=== PATIENT | male | born 1945 | race Caucasian/White ===

== ENCOUNTER 2019-04-03 19:54 | Inpatient (IN) | payer MEDICARE ==
[2019-04-03] MEDS ORDERED: methylPREDNISolone Sod Succ/PF 125 MG/2 ML VIAL ONE (20:21)
[2019-04-03 20:53] LABS: ALT (SGPT) 8 U/L (8-55); AST (SGOT) 19 U/L (5-34); Albumin 3.1 g/dL (3.4-4.8); Alkaline Phosphatase 105 U/L (40-110); Anion Gap 11 mmol/L (10-20); BUN (Urea Nitrogen) 12 mg/dL (8.4-25.7); Bilirubin, Total 0.8 mg/dL (0.2-1.2); Calc. Creatinine Clearance 0 mL/min (70-130); Calcium 8.3 mg/dL (7.8-10.44); Carbon Dioxide 23 mmol/L (23-31); Chloride 91 mmol/L (98-107); Estimated GFR-MDRD Greater than 90; Globulin 4.4 g/dL (2.4-3.5); Glucose 152 mg/dL (83-110); Potassium 4.1 mmol/L (3.5-5.1); Protein, Total 7.5 g/dL (5.8-8.1); Sodium 121 mmol/L (136-145)
[2019-04-03 21:02] LABS: Actual Bicarbonate (HCO3a) 21.1 mEq/L (22-28); Analyzer IN Cardio ER; Base Excess (BEa) -4.2 mEq/L (-2.0 to +3.0); CO2 Tension 39.6 mmHg (35.0-45.0); Calcium, Ionized 1.12 mmol/L (1.12-1.30); Carboxyhemoglobin (COHb) 0.7 gm% (0.0-3.0); Hemoglobin (Hb) 11.4 g/dL (14.0-18.0); O2 Tension (PaO2) 84.6 mmHg (> 70.0); Potassium - ABG Lab 3.88 mmol/L (3.70-5.30); pH, Arterial 7.35 (7.35-7.45)
--- NOTE | 2019-04-03 21:02 | PDOC.FPRHP ---
- History of Present Illness History of Present Illness: Mr. Morris is a 73yoM who does not regularly see a physician. He was found down in his home today, he had been immobile for an unknown amount of time, last seen 2-3 days ago. During his intake he was on BiPap and weak. He was able to speak in short sentences. He is alert and oriented to person, not place or time. He states he has been feeling bad for "a while". His history is significant for several basal cell carcinoma removals. 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 He has a 50 pack year smoking history. - Allergies/Adverse Reactions Allergies Allergy/AdvReac Type Severity Reaction Status Date / Time No Known Allergies Allergy Verified 05/26/14 18:19 - Home Medications Medication Instructions Recorded Confirmed Type Albuterol Sulfate [Albuterol 2 puff IH Q6HR PRN #0 inhaler 05/28/14 04/04/19 Rx Sulfate HFA] Amlodipine [Norvasc] 10 mg PO DAILY #0 tab 05/28/14 04/04/19 Rx Aspirin [Ecotrin Regular Strength] 81 mg PO DAILY #0 tab 05/28/14 04/04/19 Rx Atorvastatin Calcium [Lipitor] 10 mg PO HS #0 tab 05/28/14 04/04/19 Rx Budesonide-Formoterol [Symbicort 2 puff INH BID-RT #0 aer 05/28/14 04/04/19 Rx 160-4.5] Clopidogrel Bisulfate [Plavix] 75 mg PO QAM #0 tab 05/28/14 04/04/19 Rx Tiotropium [Spiriva Handihaler] 18 mcg INH DAILY-RT #0 box 05/28/14 04/04/19 Rx predniSONE 40 mg PO QAM-WM 20 Days tab 06/01/14 04/04/19 Rx - History PMHx: BCC, resected COPD PSHx: BCC removals Appendectomy Tonsillectomy FHx: Non-contributory Social: 50 pack year smoking history, - Review of Systems ROS unobtainable: due to mental status - Vital signs BP: 115/64, MAP: 81, Pulse: 76, Resp: 16, Pain: UTR, O2 sat: 93 on (Ventilator) , End-Tidal CO2: 26, Time: 04/03/2019 23:00 TMAX 102.9F - Physical Exam -Constitutional: Awake and alert, not oriented to time or place. Weak. Cachectic HEENT: normocephalic and atraumatic, PERRLA, EOMI, conjunctiva clear, grossly normal vision, grossly normal hearing -HEENT: Dry mucus membranes. Several areas of skin breakdown on face and forehead Neck: supple, trachea midline Heart: RRR, normal S1/S2, no murmurs/rubs/gallops -Lungs: On BiPap, poor air movement Abdomen: soft, non-tender Musculoskeletal: normal structure, normal tone -Musculoskeletal: Clubbing -Neurological: Left sided weakness Skin: good turgor, capillary refill <2 seconds Heme/Lymphatic: no unusual bruising or bleeding, no purpura, no petechia FMR H&P: Results - Labs Result Diagrams: 04/04/19 03:49 04/04/19 03:49 Lab results: Sodium 121 mmol/L (136-145) L 04/03/19 20:25 Potassium 4.1 mmol/L (3.5-5.1) 04/03/19 20:25 Chloride 91 mmol/L (98-107) L 04/03/19 20:25 Carbon Dioxide 23 mmol/L (23-31) 04/03/19 20:25 BUN 12 mg/dL (8.4-25.7) 04/03/19 20:25 Creatinine 0.70 mg/dL (0.7-1.3) 04/03/19 20:25 Glucose 152 mg/dL (83-110) H 04/03/19 20:25 Calcium 8.3 mg/dL (7.8-10.44) 04/03/19 20:25 Total Bilirubin 0.8 mg/dL (0.2-1.2) 04/03/19 20:25 AST 19 U/L (5-34) 04/03/19 20:25 ALT 8 U/L (8-55) 04/03/19 20:25 Alkaline Phosphatase 105 U/L (40-110) 04/03/19 20:25 Serum Total Protein 7.5 g/dL (5.8-8.1) 04/03/19 20:25 Albumin 3.1 g/dL (3.4-4.8) L 04/03/19 20:25 - Radiology Interpretation Chest x-ray Status: report reviewed by me (Focal infiltrate or mass density in the medial right upper lung. Interstitial and hazy infiltrates in both lung bases.) FMR H&P: A/P - Plan Respiratory distress likely 2/2 COPD exacerbation vs Community Acquired PNA, possibly bilateral - CXR shows RUL pneumonia and bilateral infiltrates in the bases. - Patient was becoming tired on the BiPap. We discussed code status and he requested all resuscitative measures. The decision was made to intubate him while in the ER in anticipation of respiratory decline. - Blood cx done in outside ER. Started on Vanc and Zosyn. Will transition to Cefepime and Levaquin as this is community acquired pneumonia. - Will start steroids and magnesium for COPD exacerbation Hyponatremia, likely chronic - NA 121. Will monitor. H/o BCC - appears to have more BCC on face and forehead, will need derm follow up H/o CVA - persistent left sided deficits Disposition/LOS: Dispo: guarded. on ventilator, will likely be difficult to wean. Inpatient, LOS > 48 hours Code: Full, will attempt to contact next of kin or MPOA tomorrow for further guidance. FMR H&P: Upper Level - Plan Date/Time: 04/03/192101 PCP: None- CC HPI: This is a 73 yo M who was found down in bed when neighbors were bringing him Thanksgiving dinner, they had not seen him for 2-3 days. On exam in the ED was AxOx2, he knew he was at a hospital and his name. He could only speak in short phrases on the bipap. He denied pain. He stated he had been feeling sick for about a month. He was taking to [facility] and found to have a Tmax of 102.9 and sent to [facility]. He was last admitted in 2015 for a R CVA, he has persistent L sided deficit. At that time he had vocal cord paralysis noted incidentally on a CT scan and it is not clear if he ever followed up with ENT, he also had carotid artery stenosis and was supposed to f/u with Dr. Maciel, unclear if this occurred.. Per record review he has smoked 1 ppd for at least 50 years. REVIEW OF SYSTEMS: unable to complete 2/2 resp distress and AMS PHYSICAL EXAMINATION: General: alert and oriented x2 HEENT: PERRLA, EOMI, normal sclera Neck: Supple. Full ROM. Heart/Cardiovascular System: RRR, Cap refill < 3 seconds, no rub, no murmur Lungs/Respiratory System: chest splinting on bipap, poor air movement, minimal wheezing-thinking this because of poor air movt-not good, speaking in short phrases Abdomen/Gastro-Intestinal System: no abdominal tenderness, normal bowel sounds Extremities: Warm extremities. Clubbing Neuro: . Unable fully extend L arm or leg Psychiatry: Awake, Alert and cooperative with exam Skin: like BCC on forehead A/P: # COPD exacerbation, Community Acquired PNA, possibly bilateral - CXR shows RUL pneumonia, hazy infiltrate at bases bilaterally - Initial VBG pH 7.4, ABG shows pH 7.35-> 7.32 on Bipap - Patient was intubated in anticipation of worsening resp distress - Received Vanc, Zosyn at [facility], blood cultures taken - Continue with cefepime, levoquin, methylpred q6 - Ordered magnesium - Anticipate he will be difficult to wean off vent, appreciate pulm res # Chronic Hyponatremia - Na 121, NS, trend # Hx of vocal cord paralysis, carotid stenosis - Consider CTA later on # CVA 2014 - Persistent deficits # Hx of BCC - lesions on forehead will likely need excision at later time Fluids: NS at 125 ml/hr Code status: Full- this was discussed with patient prior to intubation, he consented to emergency intubation and confirmed he wanted to be full code PPx: lovenox Dispo: >2 midnights Addendum - Attending - Attending Attestation Date/Time: 04/04/19 4924 I personally evaluated the patient and discussed the management with Dr. Belle/ Cameron. I agree with the History, Examination, Assessment and Plan documented above with any addition or exceptions noted below. See dictated note for full addendum.
[2019-04-03 21:03] LABS: Puncture Site LRA
[2019-04-03] MEDS ORDERED: Ketamine 50 MG/ML (10ML VIAL) ONE ×2 (21:10→21:11)
[2019-04-03] MEDS ORDERED: Rocuronium Bromide 10 MG/ML (10ML VIAL) ONE ×2 (21:10→21:12)
[2019-04-03] MEDS ORDERED: Ondansetron PF 4 MG/2 ML Vial IVP PRN (21:45)
[2019-04-03] MEDS ORDERED: Ipratropium Bromide 2.5 ml Neb NEB PRN (21:47)
[2019-04-03] MEDS ORDERED: CCU Electrolyte Replacement 1 EACH IVPB ONE (21:47)
[2019-04-03] MEDS ORDERED: Potassium Chloride 20 MEQ TAB PO PRN (21:51)
[2019-04-03] MEDS ORDERED: Magnesium 2 GM/50 ML 2 GM in Premix Bag 1 BAG IVPB PRN (21:51)
[2019-04-03] MEDS ORDERED: Magnesium Oxide 400 MG TAB PO PRN ×2 (21:51)
[2019-04-03] MEDS ORDERED: Potassium Chloride 40 MEQ in Premix Bag 1 BAG IVPB PRN (21:51)
[2019-04-03] MEDS ORDERED: CCU ELECTROLYTE REPLACEMENT PROTOCOL FS PRN (21:51)
[2019-04-03] MEDS ORDERED: PHOS-NAK 1 PKT PACK PO PRN ×2 (21:51)
[2019-04-03] MEDS ORDERED: Potassium Phosphate 15 MMOL in Sodium Chloride 0.9% 250 ML 250 ML IV PRN (21:51)
[2019-04-03] MEDS ORDERED: Potassium Chloride 40 MEQ in Sodium Chloride 0.9% 250 ML 250 ML IVPB PRN (21:51)
[2019-04-03] MEDS ORDERED: Potassium Phosphate 9 MMOL in Sodium Chloride 0.9% 100 ML IVPB PRN (21:51)
[2019-04-03] MEDS ORDERED: Potassium Phosphate 12 MMOL in Sodium Chloride 0.9% 250 ML 250 ML IV PRN (21:51)
[2019-04-03] MEDS ORDERED: Morphine 2 MG/ML SYRINGE SLOW IVP PRN (21:52)
[2019-04-03] MEDS ORDERED: Propofol BOLUS 1,000 MG/100 ML VIAL IV PRN (21:52)
[2019-04-03] MEDS ORDERED: Fentanyl BOLUS 250 ML IVPB PRN (21:52)
[2019-04-03] MEDS ORDERED: Lorazepam 2 MG/ML VIAL SLOW IVP PRN (21:52)
[2019-04-03] MEDS ORDERED: DISCONTINUE PREVIOUS NARCOTIC PAIN MEDICATIONS AND BENZODIAZEPINES FS SCH (21:52)
[2019-04-03] MEDS ORDERED: Bacteriostatic Water 30 ML VIAL FS PRN (21:57)
[2019-04-03] MEDS ORDERED: Ventilator Sedation Protocol 1 EACH FS SCH (22:00)
[2019-04-03 22:30] LABS: Actual Bicarbonate (HCO3a) 22.2 mEq/L (22-28); Analyzer IN Cardio ER; Base Excess (BEa) -3.9 mEq/L (-2.0 to +3.0); CO2 Tension 44.1 mmHg (35.0-45.0); Calcium, Ionized 1.11 mmol/L (1.12-1.30); Carboxyhemoglobin (COHb) 0.9 gm% (0.0-3.0); Hemoglobin (Hb) 12.4 g/dL (14.0-18.0); O2 Tension (PaO2) 72.1 mmHg (> 70.0); Potassium - ABG Lab 3.82 mmol/L (3.70-5.30); pH, Arterial 7.32 (7.35-7.45)
[2019-04-03 22:38] LABS: ALV-art Gradient 157.975 (0-20); Puncture Site RRA
[2019-04-03] MEDS ORDERED: Magnesium 2 GM/50 ML 2 GM in Premix Bag 1 BAG IVPB SCH (23:00)
--- NOTE | 2019-04-03 23:06 | RAD ---
RADIOGRAPH CHEST 1 VIEW: DATE: 04/03/2019 TIME: 10:20 PM HISTORY: 73-year-old male status post intubation. Dyspnea. COMPARISON: 04/03/2019 5:42 PM FINDINGS: New ETT with distal tip 4.5 cm superior to ayde. Moderate size region of opacification of right upp er lobe, unchanged. Interstitial-alveolar densities at bilateral lower lung zones, left greater than right, where there is lateral basilar dense consolidation. No cardiomegaly. No pneumothorax. Eso phagogastric tube newly placed. Distal tip inferior to the [id number]. Left upper lobe relatively clear. IMPRESSION: 1) status post intubation with endotracheal tube and esophagogastric tube. 2) infiltrates in right upper lobe, and bilateral lower globes, left greater than right, unchanged
[2019-04-04] MEDS: Sodium Chloride 0.9% 1,000 ML IV SCH ×2 (00:19→06:06)
[2019-04-04] MEDS: methylPREDNISolone Sod Succ/PF 125 MG/2 ML VIAL IVP SCH ×2 (00:26→06:06)
[2019-04-04] MEDS: Propofol 1,000 MG/100 ML VIAL IV PRN ×2 (00:26→19:33)
[2019-04-04] MEDS: Nicotine 14 MG PATCH TD SCH ×2 (00:31→21:59)
--- NOTE | 2019-04-04 01:18 | HP ---
TIME OF ADMISSION: 2114 This is an attending history and physical for the patient, Grayson Morris. For full history and physical details, please see Dr. Shira Belle and Dr. Yanick Barnes's electronic H and P. Portions of the history and physical have been repeated by myself, and I am in agreement with the assessment and plan as documented. HISTORY OF PRESENT ILLNESS: In brief, the patient with medical history for COPD and prior history of CVA, is presenting to our institution after being found down. Most the history was obtained from EMS and medical records. Per those records, the patient was found earlier today by some neighbors. He was unresponsive and had difficulty breathing. EMS was called at that time. The patient was originally sent to [facility] where labs and imaging were obtained and he was placed on BIPAP therapy. Labs at that time showed leukocytosis while a chest x-ray showed right lobe infiltrates with bilateral lower lobe haziness. The patient initially was put on BIPAP and was transferred here for higher level of care. After arrival to our institution, the patient had decompensation in his condition with increasing respiratory difficulties and a decision was made at that time to intubate the patient. I arrived just prior to the patient being intubated. I asked the patient if he knew why he was at the hospital and he reported that he did not. He was able to tell me his name and that he was located in hospital. He was unsure of his medical history. Further records, the patient has not been seen by his physician in several years and his last admission to the hospital was in 2014 for the cerebrovascular accident. PHYSICAL EXAMINATION: VITAL SIGNS: At the time of my examination, patient's pulse was 85, blood pressure 141/70, pulse ox was 85% on 30% FiO2 by BIPAP. GENERAL: The patient alert and oriented x1. He was in mild respiratory distress. The patient had a disheveled appearance with multiple scabs and bruises scattered across his body. HEENT: Overall normocephalic and atraumatic. Patient did have some blood originating from the right naris. Soft teeth noted. NECK: Supple. LUNGS: Revealed greatly diminished air sounds bilaterally. Mild crackles auscultated bilaterally. There was increased work of breathing noted. HEART: Regular rate and rhythm. ABDOMEN: Soft and nontender to palpation, nondistended. EXTREMITIES: Revealed clubbing of the finger nails bilaterally. There was no cyanosis or edema noted. NEUROLOGIC: Motor and sensory grossly intact. LABORATORY DATA: Showed leukocytosis with left shift. Patient also noted to have hyponatremia to 121. Patient had chest x-ray as mentioned that showed right lobe infiltrate as well as bilateral basilar haziness. CT brain obtained at the outside institution revealed no acute change. ASSESSMENT AND PLAN: This patient with a history of chronic obstructive pulmonary disease and history of CVA, being admitted to the CCU for following diagnoses: 1. Acute hypoxic respiratory failure secondary to encephalopathy and suspected community-acquired pneumonia with chronic obstructive pulmonary disease exacerbation. 2. Chronic obstructive pulmonary disease exacerbation. 3. Community-acquired pneumonia. 4. Hyponatremia. 5. History of CVA. PLAN: For the patient to be admitted to the CCU. He has now been intubated and sedated by the ER staff. Pulmonology will be consulted. The patient will be magnesium as well as steroids and breathing treatments. We will continue broad spectrum antibiotics with cefepime and Levaquin covering for likely pathogens. We will send multidrug resistant organisms. We will obtain flu swab. Cultures will be obtained. We will give fluid boluses as he does appear dry on exam and this is likely the cause of his hyponatremia, but we will continue to monitor. Anticipate multiple day hospitalization and also anticipate there maybe difficult in weaning this patient from the ventilator due to his poor lung exam prior to being intubated. No family was available or able to be contacted prior to intubation. However, the patient was counseled on code status as well as his wishes and he reported that he was open to being intubated as well as doing CPR if his heart were to stop and therefore he is listed as full code at this time. Job ID: [id number]
[2019-04-04 04:12] LABS: #Lymphocytes 0.6 thou/uL (1.20-3.40); #Monocytes 0.3 thou/uL (0.11-0.59); #Neutrophils 11.5 thou/uL (1.40-6.50); %Basophils 0.1 % (0.0-1.0); %Eosinophils 0.1 % (0.0-10.0); %Lymphocytes 4.6 % (21.0-51.0); %Monocytes 2.3 % (0.0-10.0); Hemoglobin 10.5 g/dL (14.0-18.0); Mean Corpuscular HGB CONC 33.8 g/dL (32.0-36.0); Mean Corpuscular Hemoglobin 28.7 pg (27.0-31.0); Mean Corpuscular Volume 85.1 fL (78.0-98.0); Mean Platelet Volume 5.9 fL (7.4-10.4); Platelet Count 254 thou/uL (130-400); RBC Distribution Width 14.6 % (11.5-14.5); Red Blood Cell (RBC) Count 3.64 mill/uL (4.70-6.10); White Blood Cell (WBC) Count 12.3 thou/uL (4.8-10.8)
[2019-04-04 04:39] LABS: ALT (SGPT) 9 U/L (8-55); AST (SGOT) 17 U/L (5-34); Albumin 2.7 g/dL (3.4-4.8); Alkaline Phosphatase 90 U/L (40-110); Anion Gap 6 mmol/L (10-20); BUN (Urea Nitrogen) 11 mg/dL (8.4-25.7); Bilirubin, Total 0.4 mg/dL (0.2-1.2); Calc. Creatinine Clearance 86 mL/min (70-130); Calcium 8.1 mg/dL (7.8-10.44); Carbon Dioxide 26 mmol/L (23-31); Chloride 99 mmol/L (98-107); Estimated GFR-MDRD Greater than 90; Globulin 4.1 g/dL (2.4-3.5); Glucose 170 mg/dL (83-110); Potassium 4.1 mmol/L (3.5-5.1); Protein, Total 6.8 g/dL (5.8-8.1); Sodium 127 mmol/L (136-145)
--- NOTE | 2019-04-04 06:30 | PDOC.FM ---
- Subjective Subjective: Patient on ventilator during evaluation this AM. His sedation had worn off, and he was becoming slightly agitated. Patient cachectic appearing, with barrel chested rib cage. Fentanyl increased and patient calmed down. Nurse states that propofol dropping blood pressures overnight, so being cautious with use of propofol. - Objective MAR Reviewed: Yes Vital Signs & Weight: Vital Signs (12 hours) Temp Pulse Resp BP BP Pulse Ox 04/04/19 04:00 97.7 F 16 04/04/19 02:20 68 100/52 L 04/04/19 02:00 16 04/04/19 00:00 97.9 F 16 04/03/19 23:45 100 04/03/19 20:12 97.8 F 76 20 186/86 H 100 Weight Weight 57.878 kg Most Recent Monitor Data Heart Rate from ECG 81 NIBP 115/62 NIBP BP-Mean 75 Respiration from ECG 12 SpO2 100 I&O: 04/02/19 04/03/19 04/04/19 06:59 06:59 06:59 Intake Total 617.3 Output Total 1425 Balance -807.7 Result Diagrams: 04/04/19 03:49 04/04/19 03:49 EKG Reviewed by me: No Radiology Reviewed by me: Yes Phys Exam - Physical Examination On ventilator and sedated, although sedation wearing off and pt agitated Making tears Diffuse rhonchi throughout Cardiovascular: RRR No appreciable murmurs Gastrointestinal: soft, no distention Musculoskeletal: no edema, pulses present Sedated on ventilator No clonus Dx/Plan (1) Acute respiratory failure with hypoxia Code(s): J96.01 - ACUTE RESPIRATORY FAILURE WITH HYPOXIA Status: Acute (2) COPD (chronic obstructive pulmonary disease) Status: Acute (3) Hypertension Code(s): I10 - ESSENTIAL (PRIMARY) HYPERTENSION Status: Acute (4) Hyponatremia Code(s): E87.1 - HYPO-OSMOLALITY AND HYPONATREMIA Status: Acute (5) Community acquired pneumonia Code(s): J18.9 - PNEUMONIA, UNSPECIFIED ORGANISM Status: Acute - Plan Plan: Acute hypoxic hypercapneic respiratory failure Likely 2/2 COPD exacerbation and CAP Patient intubated and sedated (04/03) Anticipate difficulty in weaning ventilator Pulmonology consulted; appreciate recs Continue antibiotics and steroids Objective improvement in air movement this AM COPD exacerbation CXR shows RUL pneumonia, hazy infiltrate at bases bilaterally. Initial VBG pH 7.4, ABG showed pH 7.35-> 7.32 on Bipap Patient was intubated in anticipation of worsening resp distress Received Vanc, Zosyn at [facility] Blood cultures pending Continue with cefepime, levoquin Will decrease methylprednisolone to 40 mg IV q6h Given Mg in ED Anticipate he will be difficult to wean off vent, appreciate pulm res Continue duoneb treatments Community Acquired PNA, RUL Continue cefepime and levoquin (12/01) CXR shows RUL infiltrate and elevated right hemidiaphragm Continue to monitor vitals Patient has remained afebrile Procal 0.31 --> 0.35 Hypovolemic hyponatremia Na 121 --> 127 with NS Will switch to LR at 75 mL/hr Hx of vocal cord paralysis Known history CVA 2014 Persistent left sided deficits Hx of BCC Lesions on forehead will likely need excision at later time Code status: Full; This was discussed with patient prior to intubation, he consented to emergency intubation and confirmed he wanted to be full code PPX: Lovenox Dispo: Continue ventilator support. Appreciate pulmonology recommendations. Anticipate difficult wean from ventilator. Will continue to try to contact family. Addendum - Attending - Attending Attestation Date/Time: 04/04/19 5219 I personally evaluated the patient and discussed the management with Dr. Epstein. I agree with the History, Examination, Assessment and Plan documented above with any addition or exceptions noted below. Patient with some objective improvement overnight. He is moving better air in his lungs this morning as compared to in the ED last night. He has received Mg and Steroids. On nebulizer treatments and abx for possible CAP and COPD exacerbation. His vent pressures appear appropriate, Pulm on board. UOP adequate. ABG improved. Will decrease steroids today, and continue respiratory support.
[2019-04-04 06:47] LABS: Actual Bicarbonate (HCO3a) 20.3 mEq/L (22-28); Base Excess (BEa) -5.4 mEq/L (-2.0 to +3.0); CO2 Tension 40.1 mmHg (35.0-45.0); Calcium, Ionized 1.21 mmol/L (1.12-1.30); Carboxyhemoglobin (COHb) 0.9 gm% (0.0-3.0); Hemoglobin (Hb) 12.4 g/dL (14.0-18.0); O2 Tension (PaO2) 105.7 mmHg (> 70.0); pH, Arterial 7.32 (7.35-7.45)
[2019-04-04 07:07] LABS: ALV-art Gradient 271.975 (0-20); Puncture Site RBRACH
--- NOTE | 2019-04-04 07:48 | RAD ---
CHEST 1 VIEW: INDICATION: Daily CCU examination, intubation. IMPRESSION: Elevation of the right hemidiaphragm persists. Prominent interstitial airspace opacities involving t he right and left lung are stable. Cardiomegaly persists. ET tube and gastric catheter are unchange d. No pneumothorax is evident. The exam is compared to a prior dated 04/03/2019 at 10:19 p.m. POS:
[2019-04-04] MEDS ORDERED: Prevnar 13-Val Conj/PF 0.5 ML SYRINGE IM ONE (09:00)
[2019-04-04] MEDS ORDERED: FLU VACC TS2019-20(65YR UP)/PF 180 MCG/0.5 ML SYRINGE IM ONE (09:00)
[2019-04-04] MEDS: Enoxaparin Sodium 40 MG/0.4 ML SYRINGE SC SCH (09:27)
[2019-04-04] MEDS: Lactated Ringer's 1,000 ML IV SCH ×2 (09:31→22:23)
[2019-04-04] MEDS: Famotidine/PF 20 mg/2ml Vial SLOW IVP SCH ×2 (09:31→19:33)
[2019-04-04] MEDS: Sodium Chloride 0.45% 1,000 ML IV SCH ×2 (09:40→22:35)
--- NOTE | 2019-04-04 10:09 | CON ---
DATE OF CONSULTATION: 04/04/2019 CONSULTING PHYSICIAN: [facility]. REASON FOR CONSULTATION: Acute respiratory failure following encompassed 45 minutes of critical care time. HISTORY OF PRESENT ILLNESS: This is a 73-year-old male who was found in his home yesterday he was unable to speak. He was originally brought to the emergency room, placed on BiPAP, but failed, and then had to be intubated and is currently on mechanical ventilation. The only history I have is obtained from reading the patient's chart. There is no family available to cooperate the history. PAST MEDICAL HISTORY: 1. Chronic obstructive pulmonary disease. 2. Skin cancer. PAST SURGICAL HISTORY: 1. Skin cancer removal. 2. Appendectomy. 3. Tonsillectomy. FAMILY MEDICAL HISTORY: Unremarkable. SOCIAL HISTORY: Has a 50 pack-year history of smoking, not sure about alcohol intake. ALLERGIES: NONE LISTED. REVIEW OF SYSTEMS: Cannot be obtained as he is currently on mechanical ventilation. PHYSICAL EXAMINATION: VITAL SIGNS: Heart rate 88, blood pressure 134/72, O2 saturation 100%, respiratory rate 13, and his temperature is 98.7. He is 5 feet 6 inches. Weight 127 pounds. His BMI is 20.6. GENERAL: He has general appearance of cachexia. He will move all 4 extremities and appears alert on mechanical ventilation on slight sedation with propofol and fentanyl. HEENT: Remarkable for bitemporal wasting. he has an orogastric tube present. NECK: No adenopathy, JVD, or bruits. LUNGS: He has distant breath sounds, a barrel chest with increased AP diameter. HEART: Sounds are distant. No murmur audible. ABDOMEN: Soft and nontender to palpation. EXTREMITIES: No cyanosis or edema. LABORATORY DATA: Sodium 127, potassium 4.1, chloride 99, CO2 of 26, BUN 11, creatinine 0.6, glucose 170, albumin 2.7, and procalcitonin level 0.35. The pH of 7.32, pCO2 of 40, PO2 of 105 on SIMV rate 16, tidal volume 450, PEEP 5, pressure support 10, FiO2 60%. White blood cell count 12.3, hematocrit 31, and platelet count 254. IMAGING STUDIES: His chest x-ray shows a rather prominent right upper lobe infiltrate. He has right diaphragmatic elevation present on the latest x-ray, but his initial x-ray did not have that. ASSESSMENT: 1. Right upper lobe pneumonia. 2. Acute respiratory failure, requiring mechanical ventilation. 3. Severe underlying chronic obstructive pulmonary disease based on the patient's physical appearance, exam, and laboratory values. PLAN: The patient will be kept intubated on mechanical ventilation for the time being. I agree with broad-spectrum IV antibiotics, steroids, and mechanical ventilation. I will add nebulization treatments. He is on DVT prophylaxis with enoxaparin and GI prophylaxis with Pepcid. I will initiate tube feeds. I anticipate him being intubated for several days. Thank you for the referral. I will follow with you. Job ID: [id number]
[2019-04-04] MEDS: Cefepime 2 GM in Sodium Chloride 0.9% 100 ML IVPB SCH ×2 (11:26→23:01)
[2019-04-04] MEDS: methylPREDNISolone Sod Succ 40 MG VIAL IVP SCH ×3 (11:27→23:01)
[2019-04-04] MEDS: fentaNYL Citrate/PF 2,000 MCG in Sodium Chloride 0.9% 60 ML IV SCH (12:11)
[2019-04-05 04:10] LABS: #Lymphocytes 0.7 thou/uL (1.20-3.40); #Neutrophils 15.5 thou/uL (1.40-6.50); %Basophils 0.1 % (0.0-1.0); %Eosinophils 0.2 % (0.0-10.0); %Lymphocytes 3.9 % (21.0-51.0); %Neutrophils 89.8 % (42.0-75.0); Hemoglobin 10.6 g/dL (14.0-18.0); Mean Corpuscular HGB CONC 32.6 g/dL (32.0-36.0); Mean Corpuscular Hemoglobin 28.4 pg (27.0-31.0); Mean Platelet Volume 5.9 fL (7.4-10.4); Platelet Count 294 thou/uL (130-400); RBC Distribution Width 14.8 % (11.5-14.5); Red Blood Cell (RBC) Count 3.73 mill/uL (4.70-6.10); White Blood Cell (WBC) Count 17.2 thou/uL (4.8-10.8)
[2019-04-05 04:32] LABS: ALT (SGPT) 10 U/L (8-55); AST (SGOT) 18 U/L (5-34); Albumin 2.8 g/dL (3.4-4.8); Alkaline Phosphatase 84 U/L (40-110); Anion Gap 10 mmol/L (10-20); BUN (Urea Nitrogen) 17 mg/dL (8.4-25.7); Bilirubin, Total 0.3 mg/dL (0.2-1.2); Calc. Creatinine Clearance 76 mL/min (70-130); Calcium 8.6 mg/dL (7.8-10.44); Carbon Dioxide 23 mmol/L (23-31); Chloride 100 mmol/L (98-107); Estimated GFR-MDRD Greater than 90; Globulin 4.2 g/dL (2.4-3.5); Glucose 139 mg/dL (83-110); Potassium 4.5 mmol/L (3.5-5.1); Sodium 128 mmol/L (136-145)
[2019-04-05] MEDS: methylPREDNISolone Sod Succ 40 MG VIAL IVP SCH ×4 (05:39→23:28)
--- NOTE | 2019-04-05 06:18 | PDOC.FM ---
- Subjective Subjective: Patient is intubated and sedated this AM. Per nursing staff, no acute events overnight. He continues to breath over ventilator. Required multiple doses of bolus sedation due to agitation. - Objective Vital Signs & Weight: Vital Signs (12 hours) Temp Pulse Resp BP Pulse Ox 04/05/19 06:00 16 04/05/19 04:00 98.5 F 16 04/05/19 02:29 100 119/55 L 04/05/19 02:00 16 04/05/19 00:00 98.3 F 16 04/04/19 22:29 93 96/50 L 04/04/19 22:00 16 04/04/19 20:00 98.9 F 16 98 04/04/19 18:42 73 106/51 L Weight Admit Weight 57.606 kg Weight 58.1 kg Most Recent Monitor Data Heart Rate from ECG 67 NIBP 108/51 NIBP BP-Mean 75 Respiration from ECG 0 SpO2 100 I&O: 04/03/19 04/04/19 04/05/19 06:59 06:59 06:59 Intake Total 617.3 2303 Output Total 1425 1160 Balance -807.7 1143 Result Diagrams: 04/05/19 03:55 04/05/19 03:55 Phys Exam - Physical Examination Constitutional: NAD ET in place Diminished breath sounds bilaterally. Cardiovascular: RRR, no significant murmur Gastrointestinal: soft, positive bowel sounds Musculoskeletal: no edema intubated and sedated Deviation from normal: intubated and sedated Dx/Plan (1) Acute respiratory failure with hypoxia Code(s): J96.01 - ACUTE RESPIRATORY FAILURE WITH HYPOXIA Status: Acute (2) Community acquired pneumonia Code(s): J18.9 - PNEUMONIA, UNSPECIFIED ORGANISM Status: Acute (3) COPD (chronic obstructive pulmonary disease) Status: Acute (4) Hyponatremia Code(s): E87.1 - HYPO-OSMOLALITY AND HYPONATREMIA Status: Acute - Plan Plan: Acute hypoxic hypercapneic respiratory failure -Likely 2/2 COPD exacerbation and CAP -Patient intubated and sedated (04/03) -Anticipate difficulty in weaning ventilator -Pulmonology consulted; appreciate recs -Continue antibiotics and steroids COPD exacerbation -CXR shows RUL pneumonia, hazy infiltrate at bases bilaterally. -Received Vanc, Zosyn at [facility] -Blood cultures pending -Continue with cefepime, levaquin -Will decrease methylprednisolone to 40 mg IV q6h -Given Mg in ED -Continue duoneb treatments Community Acquired PNA, RUL -Continue cefepime and levaquin (12/01) -CXR shows RUL infiltrate and elevated right hemidiaphragm -Continue to monitor vital signs -Patient has remained afebrile -WBC 17.2 this AM likely secondary to steroid use Hypovolemic hyponatremia -Na 128 this AM Code status: Full; This was discussed with patient prior to intubation, he consented to emergency intubation and confirmed he wanted to be full code. PPX: Lovenox Disposition: Poor prognosis. Will continue ventilator support and continue to search for family members. Addendum - Attending - Attending Attestation Date/Time: 04/05/19 1222 I personally evaluated the patient and discussed the management with Dr. Tyler. I agree with the History, Examination, Assessment and Plan documented above with any addition or exceptions noted below.
[2019-04-05 06:56] LABS: Actual Bicarbonate (HCO3a) 20.6 mEq/L (22-28); CO2 Tension 35.3 mmHg (35.0-45.0); Calcium, Ionized 1.19 mmol/L (1.12-1.30); Carboxyhemoglobin (COHb) 0.8 gm% (0.0-3.0); Hemoglobin (Hb) 10.5 g/dL (14.0-18.0); O2 Tension (PaO2) 72.7 mmHg (> 70.0); Potassium - ABG Lab 4.26 mmol/L (3.70-5.30); pH, Arterial 7.38 (7.35-7.45)
[2019-04-05 07:38] LABS: ALV-art Gradient 168.375 (0-20); Puncture Site RBRACH
--- NOTE | 2019-04-05 08:00 | RAD ---
CHEST 1 VIEW: INDICATION: Daily CCU examination. COMPARISON: Prior exam dated 04/04/2019. IMPRESSION: No appreciable change from the comparison examination. The patient remains intubated with gastric ca theter placement. No definite pneumothorax is evident. Patient positioning slightly limits detail. Chronic lung changes are stable. Cardiomegaly persists. POS: BH
[2019-04-05] MEDS: Enoxaparin Sodium 40 MG/0.4 ML SYRINGE SC SCH (08:19)
[2019-04-05] MEDS: Famotidine/PF 20 mg/2ml Vial SLOW IVP SCH ×2 (08:19→20:25)
--- NOTE | 2019-04-05 09:45 | PRG ---
DATE OF SERVICE: 04/05/2019 TIME SPENT: Thirty five minutes of critical care time. SUBJECTIVE: The patient is awake, alert, follows commands. OBJECTIVE: VITAL SIGNS: Temperature is 98.1, pulse 76, blood pressure 121/55. Intake 24 hours 2303, output 1160. HEENT: Unremarkable. NECK: No adenopathy or JVD. CHEST: Distant but clear breath sounds. CARDIAC: S1, S2. Regular. ABDOMEN: Soft. EXTREMITIES: No edema. LABORATORY DATA: White blood cell count 17.2, hematocrit 32.4, and platelet count 294. PH of 7.38, pCO2 of 35, and pO2 of 72 on SIMV rate 16, tidal volume 450, PEEP 5, pressure support 10, FiO2 of 40%. Sodium 128, potassium 4.5, chloride 100, CO2 of 23, BUN 17, creatinine 0.7 and glucose 139. IMAGING DATA: Chest x-ray shows no acute changes and hyperinflation in the right upper lobe infiltrate. ASSESSMENT: 1. Right upper lobe pneumonia. 2. Acute respiratory failure requiring mechanical ventilation. 3. Severe underlying chronic obstructive pulmonary disease. 4. Mild hyponatremia. PLAN: 1. I will go ahead and stop the half-normal saline since his sodium did not increase much more over the baseline from yesterday. 2. Spontaneous breathing trial. 3. Continue antibiotics, nebs and steroids. 4. Hopefully extubate by tomorrow at the latest. Job ID: [id number]
[2019-04-05] MEDS ORDERED: Morphine 4 MG/ML VIAL ONE (10:21)
[2019-04-05] MEDS: Cefepime 2 GM in Sodium Chloride 0.9% 100 ML IVPB SCH ×2 (13:01→23:28)
[2019-04-05] MEDS: Lactated Ringer's 1,000 ML IV SCH (13:15)
[2019-04-05] MEDS: fentaNYL Citrate/PF 2,000 MCG in Sodium Chloride 0.9% 60 ML IV SCH (19:29)
[2019-04-05] MEDS: Propofol 1,000 MG/100 ML VIAL IV PRN (20:25)
[2019-04-05] MEDS: Nicotine 14 MG PATCH TD SCH (21:59)
[2019-04-06] MEDS: Lactated Ringer's 1,000 ML IV SCH ×2 (02:33→06:02)
[2019-04-06 04:01] LABS: #Lymphocytes 0.4 thou/uL (1.20-3.40); #Monocytes 0.6 thou/uL (0.11-0.59); #Neutrophils 8.1 thou/uL (1.40-6.50); %Eosinophils 0.1 % (0.0-10.0); %Lymphocytes 4.7 % (21.0-51.0); %Monocytes 6.3 % (0.0-10.0); %Neutrophils 88.9 % (42.0-75.0); Mean Corpuscular HGB CONC 31.9 g/dL (32.0-36.0); Mean Corpuscular Hemoglobin 27.6 pg (27.0-31.0); Mean Corpuscular Volume 86.6 fL (78.0-98.0); Mean Platelet Volume 5.9 fL (7.4-10.4); Platelet Count 269 thou/uL (130-400); RBC Distribution Width 14.9 % (11.5-14.5); Red Blood Cell (RBC) Count 3.64 mill/uL (4.70-6.10); White Blood Cell (WBC) Count 9.1 thou/uL (4.8-10.8)
[2019-04-06 04:24] LABS: ALT (SGPT) 8 U/L (8-55); AST (SGOT) 15 U/L (5-34); Albumin 2.5 g/dL (3.4-4.8); Alkaline Phosphatase 63 U/L (40-110); Anion Gap 8 mmol/L (10-20); BUN (Urea Nitrogen) 16 mg/dL (8.4-25.7); Bilirubin, Total 0.3 mg/dL (0.2-1.2); Calc. Creatinine Clearance 89 mL/min (70-130); Calcium 8.2 mg/dL (7.8-10.44); Carbon Dioxide 25 mmol/L (23-31); Chloride 100 mmol/L (98-107); Estimated GFR-MDRD Greater than 90; Globulin 3.5 g/dL (2.4-3.5); Glucose 113 mg/dL (83-110); Potassium 4.3 mmol/L (3.5-5.1); Sodium 129 mmol/L (136-145)
[2019-04-06] MEDS: methylPREDNISolone Sod Succ 40 MG VIAL IVP SCH ×4 (05:56→21:50)
--- NOTE | 2019-04-06 06:10 | PDOC.FM ---
- Subjective Subjective: 73 yo male seen at bedside this AM. Patient is alert and on ventilator. He does arouse, but does not answer questions or follow commands yet this AM. He denies any pain. Per nursing staff, no acute events overnight and there is anticipated extubation for this AM. - Objective Vital Signs & Weight: Vital Signs (12 hours) Temp Pulse Resp BP Pulse Ox 04/06/19 04:00 98.2 F 12 04/06/19 03:16 64 04/06/19 02:00 12 04/06/19 00:00 98.1 F 13 04/05/19 23:23 66 124/61 04/05/19 22:00 17 04/05/19 21:00 98.3 F 04/05/19 20:00 13 99 04/05/19 19:11 68 04/05/19 19:10 100 Weight Admit Weight 57.606 kg Weight 55.3 kg Most Recent Monitor Data Heart Rate from ECG 68 NIBP 139/64 NIBP BP-Mean 109 Respiration from ECG 12 SpO2 98 I&O: 04/04/19 04/05/19 04/06/19 06:59 06:59 06:59 Intake Total 617.3 2303 1315 Output Total 1425 1160 1272 Balance -807.7 1143 43 Result Diagrams: 04/06/19 03:13 04/06/19 03:13 Phys Exam - Physical Examination Constitutional: NAD ET in place Rhonchi throughout and diminished breath sounds bilaterally Cardiovascular: RRR, no significant murmur Gastrointestinal: soft, positive bowel sounds Musculoskeletal: no edema Neurological: non-focal Deviation from normal: ET in place Dx/Plan (1) Acute respiratory failure with hypoxia Code(s): J96.01 - ACUTE RESPIRATORY FAILURE WITH HYPOXIA Status: Acute (2) Community acquired pneumonia Code(s): J18.9 - PNEUMONIA, UNSPECIFIED ORGANISM Status: Acute (3) COPD (chronic obstructive pulmonary disease) Status: Acute (4) Hyponatremia Code(s): E87.1 - HYPO-OSMOLALITY AND HYPONATREMIA Status: Acute - Plan Plan: Acute hypoxic hypercapneic respiratory failure -Likely 2/2 COPD exacerbation and CAP -Patient intubated and sedated (04/03) -CPAP/Spontaneous breathing for 24 hours. Anticipate extubation this AM if possible -Pulmonology consulted; appreciate recs -Continue antibiotics and steroids -Ethics consult placed for surrogate decision maker COPD exacerbation -CXR shows RUL pneumonia, hazy infiltrate at bases bilaterally. -Received Vanc, Zosyn at [facility] -Blood cultures pending -Continue with cefepime, levaquin -Methylprednisolone 40 mg IV q6h -Given Mg in ED -Continue duoneb treatments Community Acquired PNA, RUL -Continue cefepime and levaquin (04/03) -CXR shows RUL infiltrate -Continue to monitor vital signs -Patient has remained afebrile Hypovolemic hyponatremia -Na 129 this AM Code status: Full; This was discussed with patient prior to intubation, he consented to emergency intubation and confirmed he wanted to be full code. PPX: Lovenox Disposition: Guarded. Will anticipate extubation this AM. Addendum - Attending - Attending Attestation Date/Time: 04/06/19 3789 I personally evaluated the patient and discussed the management with the team. I agree with the History, Examination, Assessment and Plan documented above with any addition or exceptions noted below. Extubated on my interview and wanting to go home. He is in no distress. Lungs with poor air movement and scant wheezes. Multiple sores on face and previous grafts.
[2019-04-06 06:58] LABS: Actual Bicarbonate (HCO3a) 19.2 mEq/L (22-28); Calcium, Ionized 1.18 mmol/L (1.12-1.30); Carboxyhemoglobin (COHb) 0.6 gm% (0.0-3.0); Hemoglobin (Hb) 10.8 g/dL (14.0-18.0); O2 Tension (PaO2) 97.5 mmHg (> 70.0); Potassium - ABG Lab 4.06 mmol/L (3.70-5.30); pH, Arterial 7.44 (7.35-7.45)
[2019-04-06 07:21] LABS: Peep/CPAP 36.3 cmH2O; Puncture Site RBRACH
--- NOTE | 2019-04-06 08:37 | RAD ---
CHEST 1 VIEW: INDICATION: CCU examination for intubation. COMPARISON: Prior exam dated 04/05/2019. IMPRESSION: Endotracheal tube and gastric catheter are unchanged. Severe COPD change is similar-appearing. Pare nchymal opacities of the right upper lobe and left lower lobe are stable. No definite pneumothorax i s evident. The costophrenic angles are excluded. POS: BH
[2019-04-06] MEDS ORDERED: DC Sedation Protocol FS ONE (09:39)
[2019-04-06] MEDS: Enoxaparin Sodium 40 MG/0.4 ML SYRINGE SC SCH (09:51)
[2019-04-06] MEDS: Famotidine/PF 20 mg/2ml Vial SLOW IVP SCH ×2 (09:52→21:50)
--- NOTE | 2019-04-06 10:07 | PRG ---
DATE OF SERVICE: 04/06/2019 TIME SPENT: 35 minutes critical care time. SUBJECTIVE: The patient remains intubated on mechanical ventilation. He has been on CPAP all night, he has done well. OBJECTIVE: VITAL SIGNS: Temperature 97.8, pulse 112, blood pressure 140/82, and O2 saturation 96%. HEENT: Unremarkable. NECK: No adenopathy or JVD. LUNGS: Clear, but distant breath sounds. CARDIAC: S1, S2. Regular. ABDOMEN: Soft. EXTREMITIES: No edema. LABORATORY DATA: White blood cell count 9.1, hematocrit 31.5, and platelet count 269. PH of 7.44, pCO2 of 29, pO2 of 97. Sodium 129, potassium 4.3, chloride 100, CO2 of 25, BUN 16, creatinine 0.6, glucose 113. His x-ray shows right upper lobe infiltrative change. ASSESSMENT: 1. Acute respiratory failure requiring mechanical ventilation. 2. Chronic obstructive pulmonary disease with exacerbation. 3. Right upper lobe infiltrate versus pneumonia versus mass. PLAN: 1. Extubate and observe. 2. Continue antibiotics. 3. Continue steroids. 4. Probably needs a CT of the chest prior to discharge just to make sure he does not have an occult mass in the right upper lobe. Job ID: [id number]
[2019-04-06] MEDS: Cefepime 2 GM in Sodium Chloride 0.9% 100 ML IVPB SCH ×2 (12:07→23:37)
[2019-04-06] MEDS: Nicotine 14 MG PATCH TD SCH (21:50)
[2019-04-07] MEDS: methylPREDNISolone Sod Succ 40 MG VIAL IVP SCH ×4 (04:46→23:31)
--- NOTE | 2019-04-07 06:02 | PDOC.FM ---
- Subjective Subjective: No overnight events. Denies SOB, chest pain. Receiving antibiotics and duonebs q4hr. - Objective MAR Reviewed: Yes Vital Signs & Weight: Vital Signs (12 hours) Temp Pulse Ox 04/07/19 04:00 97.8 F 04/07/19 03:40 91 L 04/07/19 00:00 98.0 F 04/06/19 23:50 92 L 04/06/19 19:21 93 L 04/06/19 19:20 93 L 04/06/19 19:10 96 04/06/19 19:00 97.6 F Weight Admit Weight 57.606 kg Weight 55 kg Most Recent Monitor Data Heart Rate from ECG 88 NIBP 139/64 NIBP BP-Mean 104 Respiration from ECG 19 SpO2 90 I&O: 04/05/19 04/06/19 04/07/19 06:59 06:59 06:59 Intake Total 2303 2138 1200 Output Total 1160 1547 2501 Balance 1143 591 -1301 Result Diagrams: 04/06/19 03:13 04/07/19 05:21 Phys Exam - Physical Examination Constitutional: NAD HEENT: moist MMs Neck: supple coarse breath sounds. Prolonged expiratory phase. Cardiovascular: RRR Gastrointestinal: soft Musculoskeletal: no edema, pulses present Neurological: moves all 4 limbs Psychiatric: normal affect, A&O x 3 Skin: normal turgor Dx/Plan - Plan Plan: Acute hypoxic hypercapneic respiratory failure - Likely 2/2 COPD exacerbation and CAP - Patient intubated (04/03-04/06) - Pulm consulted; appreciate recs - Continue antibiotics, will transition to PO levaquin and steroids - Transfer to medical COPD exacerbation - CXR: RUL pneumonia, hazy infiltrate at bases bilaterally. - Blood cxs NGTD - Transition cefepime, levaquin to PO levaquin - Methylprednisolone 40mg IV q6h - Given Mg in ED - Continue duonebs Community Acquired PNA, RUL - Transition cefepime and levaquin (04/03) to PO levaquin - CXR: RUL infiltrate - VSS Hypovolemic hyponatremia - Improved, 135 this AM Code status: Full; This was discussed with patient prior to intubation, he consented to emergency intubation and confirmed he wanted to be full code. DVT ppx: Lovenox Addendum - Attending - Attending Attestation Date/Time: 04/07/19 1700 I personally evaluated the patient and discussed the management with Dr. Pike I agree with the History, Examination, Assessment and Plan documented above with any addition or exceptions noted below. Patient extubated responding well transfer to Medical floor today and transitioned to po antibiotic.
[2019-04-07 06:36] LABS: ALT (SGPT) 13 U/L (8-55); AST (SGOT) 20 U/L (5-34); Albumin 2.8 g/dL (3.4-4.8); Alkaline Phosphatase 66 U/L (40-110); Anion Gap 9 mmol/L (10-20); BUN (Urea Nitrogen) 15 mg/dL (8.4-25.7); Bilirubin, Total 0.5 mg/dL (0.2-1.2); Calc. Creatinine Clearance 76 mL/min (70-130); Calcium 8.5 mg/dL (7.8-10.44); Carbon Dioxide 29 mmol/L (23-31); Chloride 101 mmol/L (98-107); Estimated GFR-MDRD Greater than 90; Globulin 3.8 g/dL (2.4-3.5); Glucose 121 mg/dL (83-110); Protein, Total 6.6 g/dL (5.8-8.1); Sodium 135 mmol/L (136-145)
--- NOTE | 2019-04-07 08:27 | PRG ---
DATE OF SERVICE: 04/07/2019 SUBJECTIVE: Mr. Morris was successfully extubated yesterday. He feels okay. He has no acute complaints. OBJECTIVE: VITAL SIGNS: His temperature is 97.8, pulse 78, blood pressure 158/69, and O2 saturation 100. HEENT: Unremarkable. NECK: No adenopathy or JVD. LUNGS: Clear, but distant breath sounds. CARDIAC: S1, S2. Regular. ABDOMEN: Soft. EXTREMITIES: No edema. LABORATORY DATA: Sodium 135, potassium 4, BUN 15, creatinine 0.6, and glucose 121. ASSESSMENT: 1. Status post respiratory failure, requiring mechanical ventilation. 2. Chronic obstructive pulmonary disease with exacerbation. PLAN: The patient can be transferred to the floor, needs to initiate physical therapy. Continue antibiotics and steroids, but can switch to oral therapy at any time. Once his conditioning improves, he can be discharged. Job ID: [id number]
[2019-04-07] MEDS: Famotidine/PF 20 mg/2ml Vial SLOW IVP SCH (09:44)
[2019-04-07] MEDS: Enoxaparin Sodium 40 MG/0.4 ML SYRINGE SC SCH (09:44)
--- NOTE | 2019-04-07 17:33 | PQF ---
SRIKANTH MENDOSA CROTONEY PARKINSON [id number] CLINICAL DOCUMENTATION IMPROVEMENT CLARIFICATION FORM: ICD-10 Updated PLEASE DO AN ADDENDUM TO THE PROGRESS NOTE WITH ANY DOCUMENTATION UPDATES OR ADDITIONS AND CARRY THROUGH TO DC SUMMARY. THANK YOU. DATE: 04/07/2019 ATTN: DR KABA Please exercise your independent, professional judgment in responding to the clarification form. Clinical indicators are provided on the bottom of this form for your review Please check appropriate box(s): [ x] Encephalopathy: Type: [ x] Acute [ ] Subacute [ ] Chronic Etiology: [x ] Metabolic [ x ] Hypoxic [ ] Unspecified [ ] Other (please specify) [ ] Other diagnosis [ ] Unable to determine In addition, please specify: Present on Admission (POA): [x ] Yes [ ] No [ ] Unable to determine For continuity of documentation, please document condition throughout progress notes and discharge summary. Thank You. CLINICAL INDICATORS - SIGNS / SYMPTOMS / LABS / RESULTS AND LOCATION IN EMR Altered mental status / confusion - ORIENTED X 1, ENCEPHALOPATHY (NEED SPECIFICITY) - 04/03 H&P Metabolic / electrolyte abnormality - 04/03 PER LAB SODIUM 121 Hypoxia for prolonged period - 85% ON 30% BIPAP - 04/03 H&P RISK FACTORS / RESULTS AND LOCATION IN EMR Infectious process- PNEUMONIA - 04/03 H&P HYPONATREMIA - 04/03 H&P TREATMENTS / RESULTS AND LOCATION IN ENeuro checks 04/03 - 04/07 PER NURSING ASSESSMENTS Encephalopathy resolved with cause resolved - EXTUBATED 04/06 - ALERT AND WANTS TO GO HOME - 04/06 PROGRESS NOTE Oxygen therapy - 04/03 INTUBATED ON VENTILATOR - 04/03 H&P Correction of electrolyte imbalances - 04/04 PER LAB SODIUM 127 IV antibiotics- IV CEFEPIME 2 GM BID AND IV LEVAQUIN Q24H PER 04/03 ORDERS (This form is maintained as a part of the permanent medical record) 2014 [employer]. All Rights Reserved [email or web address] [not provided] MTDD
[2019-04-07] MEDS: Nicotine 14 MG PATCH TD SCH (23:35)
[2019-04-08] MEDS: methylPREDNISolone Sod Succ 40 MG VIAL IVP SCH (04:16)
[2019-04-08 05:21] LABS: ALT (SGPT) 18 U/L (8-55); AST (SGOT) 25 U/L (5-34); Albumin 3.2 g/dL (3.4-4.8); Alkaline Phosphatase 74 U/L (40-110); Anion Gap 11 mmol/L (10-20); BUN (Urea Nitrogen) 15 mg/dL (8.4-25.7); Bilirubin, Total 0.5 mg/dL (0.2-1.2); Calc. Creatinine Clearance 78 mL/min (70-130); Calcium 8.6 mg/dL (7.8-10.44); Carbon Dioxide 31 mmol/L (23-31); Chloride 96 mmol/L (98-107); Estimated GFR-MDRD Greater than 90; Globulin 3.9 g/dL (2.4-3.5); Glucose 120 mg/dL (83-110); Potassium 3.7 mmol/L (3.5-5.1); Protein, Total 7.1 g/dL (5.8-8.1); Sodium 134 mmol/L (136-145)
--- NOTE | 2019-04-08 05:59 | PDOC.FM ---
- Subjective Subjective: No events overnight. Denies SOB. Wearing oxygen via NC. Ambulating to bathroom. - Objective MAR Reviewed: Yes Vital Signs & Weight: Vital Signs (12 hours) Temp Pulse Resp Pulse Ox 04/08/19 04:00 97.8 F 04/08/19 03:24 98 04/08/19 00:00 97.9 F 04/07/19 22:52 96 04/07/19 20:00 96 04/07/19 19:00 97.7 F 04/07/19 18:59 96 04/07/19 18:57 85 19 96 Weight Admit Weight 57.606 kg Weight 54.2 kg Most Recent Monitor Data Heart Rate from ECG 85 NIBP 169/83 NIBP BP-Mean 103 Respiration from ECG 14 SpO2 95 I&O: 04/06/19 04/07/19 04/08/19 06:59 06:59 06:59 Intake Total 2138 1450 1200 Output Total 1547 2606 1880 Balance 008 -0440 -355 Result Diagrams: 04/10/19 06:17 04/10/19 06:17 Phys Exam - Physical Examination Constitutional: NAD HEENT: moist MMs Neck: supple Respiratory: no wheezing Cardiovascular: RRR, no significant murmur Gastrointestinal: soft, non-tender Musculoskeletal: pulses present Neurological: moves all 4 limbs Psychiatric: normal affect, A&O x 3 Skin: cap refill <2 seconds Dx/Plan - Plan Plan: Acute hypoxic hypercapneic respiratory failure - Likely 2/2 COPD exacerbation and CAP - Patient intubated (04/03-04/06), continues to require O2 via NC - Pulm consulted; appreciate recs - Continue antibiotics, will transition to PO levaquin and steroids - Transferred to medical yesterday, awaiting bed CAP, RUL - CXR: RUL infiltrate - Blood cxs NGTD - Continue PO levaquin COPD exacerbation - CXR: RUL pneumonia, hazy infiltrate at bases bilaterally. - On PO levaquin - Continue steroids and duonebs Code status: Full DVT ppx: Lovenox Dispo: Rehab screen placed Addendum - Attending - Attending Attestation Date/Time: 04/10/19 8768 I personally evaluated the patient and discussed the management with Dr. Simpson I agree with the History, Examination, Assessment and Plan documented above with any addition or exceptions noted below.
[2019-04-08] MEDS: predniSONE 20 MG TAB PO SCH (07:39)
[2019-04-08] MEDS: Enoxaparin Sodium 40 MG/0.4 ML SYRINGE SC SCH (08:32)
--- NOTE | 2019-04-08 08:54 | PRG ---
DATE OF SERVICE: 04/08/2019 SUBJECTIVE: Mr. Morris is doing better. He had no acute complaints. OBJECTIVE: VITAL SIGNS: His temperature is 97.8, pulse 96, blood pressure 168/85, and O2 saturation 97%. HEAD AND NECK: Unremarkable. LUNGS: Clear. ABDOMEN: Soft. CARDIAC: S1 and S2, regular. EXTREMITIES: No edema. LABORATORY DATA: Sodium 134, potassium 3.7, chloride 96, CO2 of 31, BUN 15, creatinine 0.6, and glucose 120. ASSESSMENT: Chronic obstructive pulmonary disease with exacerbation. PLAN: This is mainly a rehabilitative issue. We are awaiting for a bed on the floor. He should be able to go home tomorrow the next day. Job ID: [id number]
--- NOTE | 2019-04-08 13:41 | PRG ---
DATE OF SERVICE: 04/08/2019 SUBJECTIVE: Grayson Morris has no other complaints. OBJECTIVE: VITAL SIGNS: He is afebrile, heart rate is 101, respiratory rate is 20, oximetry is 90% on room air, and blood pressure 130/61. LUNGS: Clear. HEART: Regular rhythm. ABDOMEN: Soft. IMPRESSION AND PLAN: Chronic obstructive pulmonary disease exacerbation, improved. Stable to move out of the critical care unit. Job ID: [id number]
[2019-04-08] MEDS ORDERED: Digoxin 0.5 MG/2 ML AMP ONE (19:56)
[2019-04-08] MEDS ORDERED: Digoxin 0.5 MG/2 ML AMP SLOW IVP SCH (20:15)
--- NOTE | 2019-04-08 21:51 | PDOC.BPN ---
- Brief Progress Note Patient currently in A-fib with RVR (Rates 140-150s with QTc 467). Nursing staff initially called Dr. Hyde, Pulmonology, who recommended Digoxin. Digoxin given approximately 1 hour ago without resolution. Patient has had borderline low BPs and will avoid diltiazem at this time. Will initiate Amiodarone now and allow primary team to make changes if warranted in AM. Will re-evaluate after Amiodarone started. Dr. Cabrera, FMR attending, is in agreement with plan.
[2019-04-08] MEDS ORDERED: Amiodarone 150 MG in Dextrose 5% in Water 100 ML IVPB SCH (22:00)
[2019-04-08] MEDS: Amiodarone 450 MG in Dextrose 5% in Water 250 ML IVPB SCH (22:16)
[2019-04-08] MEDS: Nicotine 14 MG PATCH TD SCH (22:35)
[2019-04-09] MEDS ORDERED: Enoxaparin Sodium 30 MG/0.3 ML SYRINGE ONE (09:49)
[2019-04-09] MEDS ORDERED: Potassium Chloride 20 MEQ TAB ONE (11:21)
[2019-04-09] MEDS ORDERED: Magnesium Oxide 400 MG TAB PO ONE (11:21)
[2019-04-09] MEDS: predniSONE 20 MG TAB PO SCH (12:58)
[2019-04-09] MEDS: Enoxaparin Sodium 40 MG/0.4 ML SYRINGE SC SCH (13:00)
[2019-04-09] MEDS ORDERED: Diltiazem HCl 125 MG, Admixture Fee 1 EACH in Sodium Chloride 0.9% 100 ML IVPB SCH (13:15)
--- NOTE | 2019-04-09 15:34 | CON ---
DATE OF CONSULTATION: INDICATION FOR CONSULTATION: A 73-year-old gentleman, who developed atrial fibrillation with rapid ventricular response. HISTORY OF PRESENT ILLNESS: This is a very unfortunate 73-year-old gentleman, was at home, who was found down in the bed by some neighbors. He had not been seen for a couple days, they apparently were taking Thanksgiving dinner. Knows he was down, he was brought to the emergency room. He was intubated, was found to have pneumonia. He was transferred to our facility. He actually was extubated on 04/06/2019. Last night, he went in atrial fibrillation with rapid ventricular response. He did not have any significant EKG changes. He was started on digoxin and IV amiodarone. This morning, he was started on IV diltiazem. He then converted to normal sinus rhythm and is now off the diltiazem. He remains in sinus rhythm on the amiodarone. He apparently was in sepsis when he arrived into the hospital and had pneumonia. His last hospitalization was in 2014, at which time, I believe he suffered a CVA. At the time of his admission, also a prior to admission, he had a temperature of a 102.9, and said he has been sick for about a month. PAST MEDICAL HISTORY: Significant for CVA and carotid artery disease. He has been seen by Dr. Maciel in the past. He has COPD. He has had appendectomy and tonsillectomy. He has had skin cancers and skin grafts especially to the head and facial area. He has hypertension and hypercholesterolemia. SOCIAL HISTORY: He apparently lives alone. He smokes a pack a day, he has done so for about 50 years. FAMILY HISTORY: Noncontributory. ALLERGIES: NONE. MEDICATIONS: Prior to admission apparently included; 1. Albuterol. 2. Aspirin. 3. Atorvastatin. 4. Symbicort. 5. Plavix. 6. Spiriva. 7. Norvasc. 8. Prednisone. 9. On a sliding scale. At this time, he has been placed on; 1. Amiodarone. 2. Albuterol. 3. Digoxin, which else has been held. 4. Nicoderm patch. 5. Levofloxacin. 6. Prednisone. REVIEW OF SYSTEMS: He has hearing loss. He complains of shortness of breath. He has left knee pains. He also had left-sided weakness and complains of some lower extremity edema. PHYSICAL EXAMINATION: GENERAL: Reveals an elderly gentleman, who is in no acute distress at this time. He does appear to be chronically ill type person. VITAL SIGNS: Blood pressure is 116/48, heart rate is 85 and regular at the time of this dictation, respiratory rate is 14, and he is afebrile. HEENT: Shows the head to be normocephalic and atraumatic. Carotid pulses were present. I could not hear any significant bruits today. CHEST: He has decreased breath sounds throughout, but I do not hear any significant rales, rhonchi, or wheezing. CARDIOVASCULAR: Reveals a regular rate and rhythm. He has normal S1 and S2. I cannot hear an S3 nor an S4. There were no significant murmurs, heaves, thrills, bruits, or rubs. ABDOMEN: Soft and nontender. Positive bowel sounds are present. EXTREMITIES: I can palpate femoral pulses and could not palpate popliteal or pedal pulses, but the patient was sitting in the chair. NEUROLOGIC: He does have some left-sided weakness. He does have hearing problems, but otherwise, he had some edema in the feet and lower legs. Otherwise, physical examination, despite all his multiple problems, was relatively well-preserved gentleman. DIAGNOSTIC DATA: EKG shows normal sinus rhythm on admission and also at this time, he continues to have a normal sinus rhythm, but last night, had atrial fibrillation with rapid ventricular response. There was some nonspecific inferior lateral changes, but no gross ST-segment elevation. IMPRESSION AND PLAN: 1. Atrial fibrillation. A 73-year-old gentleman, who is recovering from pneumonia and sepsis, uncertain as to why he would develop atrial fibrillation now or not while he was even sicker. When he is recovered from his present illness, it would be advisable for him to undergo some type of stress testing to rule out evidence of underlying ischemia as the possible etiology of the atrial fibrillation. 2. Chronic obstructive pulmonary disease. He has been seen by Pulmonology. 3. Peripheral vascular disease. He has been seen by Dr. Maciel in the past for carotid artery disease. No intervention has been performed. Also, he appears to have vascular disease in the lower extremities. I cannot palpate pedal pulses and this may need to be evaluated at present depending on if he is symptomatic or not, but he denies it at this time. His atrial fibrillation, which is converted to sinus rhythm. For now, I would continue on amiodarone. This may not be the best choice for him with his underlying chronic obstructive pulmonary disease, but we will continue to monitor him at this time and may need to switch to a different medication depending on the ejection fraction. I believe an echocardiogram has been ordered, we will await the results of that echocardiogram prior to further recommendations. As far as his laboratory data is concerned, I believe he had some labs this morning and his renal function shows a creatinine of 0.64, sodium was 135, and BUN was 22. No indication of any chronic kidney disease. We will be more than happy to continue to follow the patient with you. Job ID: [id number]
[2019-04-09 16:25] LABS: Anion Gap 10 mmol/L (10-20); BUN (Urea Nitrogen) 22 mg/dL (8.4-25.7); Calc. Creatinine Clearance 78 mL/min (70-130); Calcium 8.5 mg/dL (7.8-10.44); Carbon Dioxide 36 mmol/L (23-31); Chloride 92 mmol/L (98-107); Estimated GFR-MDRD Greater than 90; Glucose 128 mg/dL (83-110); Magnesium 1.8 mg/dL (1.6-2.6); Potassium 3.3 mmol/L (3.5-5.1); Sodium 135 mmol/L (136-145)
[2019-04-09 16:27] LABS: Phosphorus 1.7 mg/dL (2.3-4.7)
[2019-04-09] MEDS: Enoxaparin Sodium 60 MG/0.6 ML SYRINGE SC SCH (21:36)
[2019-04-09] MEDS: Nicotine 14 MG PATCH TD SCH (23:03)
[2019-04-10] MEDS: hydrALAZINE 20 MG/ML VIAL SLOW IVP PRN ×2 (02:58→03:56)
--- NOTE | 2019-04-10 05:50 | PDOC.FM ---
- Subjective Subjective: Feeling better this morning. States he has no concerns. - Objective Vital Signs & Weight: Vital Signs (12 hours) Temp Pulse Resp BP BP Pulse Ox 04/10/19 03:56 74 190/86 H 04/10/19 03:42 97.6 F 74 20 190/86 H 93 L 04/10/19 02:58 67 187/128 H 04/10/19 02:17 190/86 H 04/10/19 02:16 187/128 H 04/09/19 22:07 67 20 97 04/09/19 20:00 98.0 F 04/09/19 19:27 95 04/09/19 18:39 80 22 H 97 Weight Admit Weight 57.606 kg Weight 63.911 kg Most Recent Monitor Data Heart Rate from ECG 75 NIBP 162/69 NIBP BP-Mean 131 Respiration from ECG 12 SpO2 93 I&O: 04/08/19 04/09/19 04/10/19 06:59 06:59 06:59 Intake Total 1440 2690 1092 Output Total 2205 1050 1230 Balance -765 1640 -138 Result Diagrams: 04/10/19 06:17 04/10/19 06:17 Phys Exam - Physical Examination Constitutional: NAD HEENT: moist MMs, sclera anicteric Multiple skin lesions. Neck: supple, full ROM Respiratory: no wheezing, no rales, no rhonchi Cardiovascular: RRR, no significant murmur Gastrointestinal: soft, non-tender, no distention Musculoskeletal: no edema Neurological: non-focal, moves all 4 limbs Psychiatric: normal affect, A&O x 3 Skin: normal turgor, cap refill <2 seconds Dx/Plan (1) Acute respiratory failure with hypoxia Code(s): J96.01 - ACUTE RESPIRATORY FAILURE WITH HYPOXIA Status: Acute (2) Community acquired pneumonia Code(s): J18.9 - PNEUMONIA, UNSPECIFIED ORGANISM Status: Acute (3) COPD (chronic obstructive pulmonary disease) Status: Acute (4) Hypertension Code(s): I10 - ESSENTIAL (PRIMARY) HYPERTENSION Status: Acute - Plan Plan: Acute hypoxic hypercapneic respiratory failure - Likely 2/2 COPD exacerbation and CAP - Patient intubated (04/03-04/06), has been weaned off O2 - Pulm consulted; appreciate recs - On PO Levaquin (04/08) Atrial Fibrillation w/ RVR, resolved - Onset of Afib with RVR on 04/08. Required Amiodarone and Cardizem drips. - Patient is now in sinus rhythm on Amiodarone drip 0.5. - Cardiology consulted, appreciate recommendations. Community acquired pneumonia, right upper lobe - CXR: RUL infiltrate - Blood cultures negative. - Continue PO levaquin COPD exacerbation - CXR: RUL pneumonia, hazy infiltrate at bases bilaterally. - On PO levaquin - Continue steroids and duonebs Code status: Cardiac code only DVT ppx: Lovenox Dispo: Stable, soon to be ready for discharge, rehab screen placed Addendum - Attending - Attending Attestation Date/Time: 04/10/19 3773 I personally evaluated the patient and discussed the management with Dr. Belle. I agree with the History, Examination, Assessment and Plan documented above with any addition or exceptions noted below.
[2019-04-10 06:24] LABS: Hemoglobin 12.7 g/dL (14.0-18.0); Platelet Count 283 thou/uL (130-400)
[2019-04-10 06:47] LABS: Anion Gap 10 mmol/L (10-20); BUN (Urea Nitrogen) 17 mg/dL (8.4-25.7); Calc. Creatinine Clearance 99 mL/min (70-130); Calcium 8.4 mg/dL (7.8-10.44); Carbon Dioxide 30 mmol/L (23-31); Chloride 96 mmol/L (98-107); Estimated GFR-MDRD Greater than 90; Glucose 84 mg/dL (83-110); Sodium 132 mmol/L (136-145)
--- NOTE | 2019-04-10 07:59 | PRG ---
DATE OF SERVICE: 04/09/2019 SUBJECTIVE: Mr. Morris set up in a chair all day. He is very happy up in a chair as long as he gets coffee. OBJECTIVE: VITAL SIGNS: Heart rate in the 70s. He did have rapid atrial fibrillation last night. Blood pressure 149/82, respiratory rates in the 20 to 24 range. LUNGS: Remarkable for coarse equal breath sounds. HEART: Regular rhythm. ABDOMEN: Soft. distress. LABORATORY DATA: Sodium 135, potassium 3.3, chloride 92, bicarb 36, BUN 22, creatinine 0.64. IMPRESSION: 1. Chronic obstructive pulmonary disease. 2. Atrial fibrillation. 3. Ongoing pack a day smoking. 4. Peripheral vascular disease with history of in the past. 5. Multiple skin cancers. 6. . 7. Status post mechanical ventilation after being found down by some neighbors. PLAN: Continue supportive care. Transfer when bed becomes available. Cardiology's input appreciated. Job ID: [id number]
[2019-04-10] MEDS: Amlodipine 10 MG TAB PO SCH (08:57)
[2019-04-10] MEDS: predniSONE 20 MG TAB PO SCH (08:57)
[2019-04-10] MEDS: Enoxaparin Sodium 60 MG/0.6 ML SYRINGE SC SCH ×2 (08:58→20:14)
[2019-04-10] MEDS: Polyethylene Glycol 3350 17 GM Packet PO SCH (08:58)
[2019-04-10 09:41] LABS: Phosphorus 2.1 mg/dL (2.3-4.7)
--- NOTE | 2019-04-10 12:23 | PDOC.CPN ---
- Subjective Date: 04/10/19 Time: 12:31 Interval history: The pt seen and examined. No overnight events. No cardiac complaints. - Objective Allergies/Adverse Reactions: Allergies Allergy/AdvReac Type Severity Reaction Status Date / Time No Known Allergies Allergy Verified 05/26/14 18:19 Visit Medications: Current Medications Albuterol/Ipratropium (Duoneb) 3 ml NEB [id number] [facility] Last Admin: 04/10/19 11:20 Dose: 3 ml Amlodipine Besylate (Norvasc) 10 mg PO DAILY [facility] Last Admin: 04/10/19 08:57 Dose: 10 mg Enoxaparin Sodium (Lovenox) 50 mg SC 0900,2100 [facility] Last Admin: 04/10/19 08:58 Dose: 50 mg Hydralazine HCl (Apresoline) 5 mg SLOW IVP Q15MIN PRN PRN Reason: SBP Greater Than 180 Last Admin: 04/10/19 03:56 Dose: 5 mg Amiodarone HCl 450 mg/ (Dextrose/Water) 259 mls @ 0 mls/hr IVPB INF [facility]; Protocol Last Admin: 04/08/19 22:16 Dose: 259 mls Levofloxacin (Levaquin) 750 mg PO 0600 [facility] Last Admin: 04/10/19 06:00 Dose: 750 mg Miscellaneous Medication (Phos-Nak) 1 pkt PO TID [facility] Stop: 04/11/19 09:01 Nicotine (Nicoderm Patch) 14 mg TD Q24HR [facility] Last Admin: 04/09/19 23:03 Dose: 14 mg Polyethylene Glycol (Miralax) 17 gm PO DAILY [facility] Last Admin: 04/10/19 08:58 Dose: 17 gm Prednisone (Prednisone) 40 mg PO QAM-WM [facility] Last Admin: 04/10/19 08:57 Dose: 40 mg Senna (Senokot) 1 tab PO BIDPRN PRN PRN Reason: Constipation Sodium Chloride (Flush - Normal Saline) 10 ml IVF PRN PRN PRN Reason: Saline Flush Sterile Water (Bacteriostatic Water) 2 ml FS PRN PRN PRN Reason: RECONSTITUTION Vital Signs & Weight: Vital Signs Temp Pulse Resp BP BP BP Pulse Ox 04/10/19 11:20 80 14 98 04/10/19 11:11 97.5 F L 76 19 165/74 H 94 L 04/10/19 08:58 96 04/10/19 07:45 87 20 98 04/10/19 07:26 96.3 F L 79 21 H 142/68 H 96 04/10/19 03:56 74 190/86 H 04/10/19 03:42 97.6 F 74 20 190/86 H 93 L 04/10/19 02:58 67 187/128 H 04/10/19 02:17 190/86 H 04/10/19 02:16 187/128 H Admit Weight 127 lb 9.6 oz Weight 140 lb 14.4 oz - Physical Exam General: alert & oriented x3 HEENT: mucus membranes moist Neck: supple neck Cardiac: S1/S2 Lungs: decreased breath sounds Neuro: cranial nerve 2-12 intact - Labs Result Diagrams: 04/10/19 06:17 04/10/19 06:17 - Telemetry Sinus rhythms and dysrhythmias: sinus rhythm - Assessment/Plan Assessment/Plan: 1. Afib with RVR - converted back to SR with Amiodarone drip which was started on 04/08/2019; On Lovenox BID; Will request EP consult; may need stress mahendra 2. HTN - will start Losartan 25mg qd from today 3. PVD with s/p CEA - On Plavix and ASA at home 4. HLD - will resume Lipitor 10mg qd 5. COPD - stable with RA 6. hx of CVA - on Plavix and ASA MAR reviewed * Echo on 04/09/2019 with EF 60-65%, mod ERA, mild MR and IN, and mild-mod TR Pt. seen and eval. by me. I agree with the A/P by the CHAIN SPLITTER. I am concerned about continuing amiodarone in this pt. with COPD. He has remained in NSR after converting . He may well have underlying CAD . This should be evaluated in the future if he is agreeable to undergo further evaluation if the stress test is abnormal. At this time I will stop the amiodarone and start po diltiazem. Should he develop afib. again then he will need more potent antiarrythmics. EP input could be helpful.
[2019-04-10] MEDS ORDERED: Losartan 25 MG TAB PO SCH (12:45)
--- NOTE | 2019-04-10 15:28 | PRG ---
TRANSITION OF CARE NOTE 04/10/2019 Mr. Morris is a 73-year-old male, who presented to the emergency department on 04/03/2019. He was found down in his home and last seen normal was 2 to 3 days prior. He was short of breath and started on BiPAP in the ER. 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 Chest x-ray showed right upper lobe pneumonia and bilateral infiltrates in the bases. He is becoming tired on BiPAP , therefore, he is intubated. Blood cultures were drawn and he was started on vancomycin and Zosyn in the ER and transitioned to cefepime and Levaquin upon admission. Blood cultures were negative at 5 days. He was started on steroids and magnesium for COPD exacerbation. He was noted to be hyponatremic with a sodium of 121, today it is 132 with a history of basal cell carcinoma and multiple lesions on his face and forehead. He will need a derm followup. He was extubated on 04/06/2019 and transitioned to p.o. Levaquin and steroids for COPD exacerbation and pneumonia. He was awaiting transfer to medical and he developed atrial fibrillation with an RVR with rates in the 150s. He was given digoxin with no resolution due to his borderline low blood pressures. He was initiated on amiodarone on the morning of 04/09/2019. Despite amiodarone, the patient again went up into rate of 150s; therefore, diltiazem was added. He was then converted back to sinus rhythm, so diltiazem was stopped. Cardiology was consulted. Case management consult was placed for rehab placement, however, the patient's insurance will not cover rehab. Therefore, a prison home is likely the best option for him. He has changed his code status to DNAR and has signed out of hospital DNR. Job ID: [id number] MTDD
[2019-04-10] MEDS: PHOS-NAK 1 PKT PACK PO SCH ×2 (15:50→20:14)
[2019-04-10] MEDS: Amiodarone 450 MG in Dextrose 5% in Water 250 ML IVPB SCH (16:44)
--- NOTE | 2019-04-10 19:24 | PRG ---
DATE OF SERVICE: 04/10/2019 SUBJECTIVE: Mr. Morris is in no distress. He is afebrile. He says he wants to go home, but he is willing to go to rehab for a period of time to get stronger. OBJECTIVE: VITAL SIGNS: His heart rate is in the 80s, respiratory rates in the teens, oximetry is 96% to 98% on room air, and blood pressure 133/63. LUNGS: Distant clear. HEART: Regular rhythm. ABDOMEN: Soft. LABORATORY DATA: Hemoglobin 12.7 today, it was 10.0 on the 1st. Sodium 132, potassium 4, chloride 96, bicarb 30, BUN 17, and creatinine 0.59. IMPRESSION: 1. Chronic obstructive pulmonary disease with exacerbation, it is improved. 2. History of cerebrovascular accident. 3. Pneumonia. 4. Status post mechanical ventilation, this admission. 5. History of multiple skin cancers. 6. Atrial fibrillation, on amiodarone. PLAN: We will continue to follow from a distance. He appears to be stable enough to transfer to a skilled facility at this point in time. He is still on IV amiodarone. At some point, this will need to be converted to p.o. He is still on full-dose subcu Lovenox, so this will need to be converted. He is on p.o. antimicrobial therapy and 40 mg of prednisone. He is continuing to receive his nebulizer treatments. Job ID: [id number]
[2019-04-10] MEDS: Nicotine 14 MG PATCH TD SCH (20:14)
[2019-04-10] MEDS: Atorvastatin Calcium 10 MG TAB PO SCH (20:14)
--- NOTE | 2019-04-10 21:27 | EKG ---
Test Reason : Blood Pressure : / mmHG Vent. Rate : 158 BPM Atrial Rate : 153 BPM P-R Int : 000 ms QRS Dur : 078 ms QT Int : 288 ms P-R-T Axes : 000 073 062 degrees QTc Int : 467 ms Atrial fibrillation Marked ST abnormality, possible inferior subendocardial injury Abnormal ECG When compared with ECG of 31-MAY-2014 14:02, Current undetermined rhythm precludes rhythm comparison, needs review ST now depressed in Inferior leads ST now depressed in Anterolateral leads Confirmed by Shahid JOHN ([id number]) on 04/10/2019 9:26:25 PM Referred By: YON Confirmed By:Shahid JOHN
--- NOTE | 2019-04-10 21:30 | EKG ---
Test Reason : Blood Pressure : / mmHG Vent. Rate : 099 BPM Atrial Rate : 110 BPM P-R Int : 000 ms QRS Dur : 080 ms QT Int : 338 ms P-R-T Axes : 000 072 072 degrees QTc Int : 433 ms Atrial fibrillation Abnormal ECG When compared with ECG of 08-APR-2019 19:41, (Unconfirmed) Previous ECG has undetermined rhythm, needs review ST elevation has replaced ST depression in Inferior leads ST no longer depressed in Anterolateral leads Confirmed by Shahid JOHN ([id number]) on 04/10/2019 9:30:13 PM Referred By: MEMO Lopez Confirmed By:Shahid JOHN
[2019-04-11 05:31] LABS: Phosphorus 2.9 mg/dL (2.3-4.7)
--- NOTE | 2019-04-11 06:28 | PDOC.FM ---
- Subjective Subjective: Doing well this morning without complaints - Objective MAR Reviewed: Yes Vital Signs & Weight: Vital Signs (12 hours) Temp Pulse Resp BP Pulse Ox 04/11/19 03:38 97.6 F 72 16 160/79 H 92 L 04/11/19 01:33 82 16 97 04/11/19 00:42 96 04/10/19 20:00 97.6 F 89 20 126/58 L 94 L 04/10/19 18:37 77 16 96 Weight Admit Weight 57.878 kg Weight 63.049 kg Most Recent Monitor Data Heart Rate from ECG 75 NIBP 162/69 NIBP BP-Mean 131 Respiration from ECG 12 SpO2 93 I&O: 04/09/19 04/10/19 04/11/19 06:59 06:59 06:59 Intake Total 2690 1092 1960.4 Output Total 1050 1230 1250 Balance 1640 -138 710.4 Result Diagrams: 04/10/19 06:17 04/10/19 06:17 Phys Exam - Physical Examination Constitutional: NAD HEENT: PERRLA, moist MMs Neck: supple, full ROM Respiratory: no wheezing, no rales, no rhonchi, clear to auscultation bilateral Cardiovascular: RRR (on amiodarone drip), no significant murmur, no rub Gastrointestinal: soft, non-tender, no distention Musculoskeletal: no edema, pulses present Neurological: non-focal, normal sensation Psychiatric: normal affect, A&O x 3 Skin: no rash, normal turgor Dx/Plan (1) Acute respiratory failure with hypoxia Code(s): J96.01 - ACUTE RESPIRATORY FAILURE WITH HYPOXIA Status: Acute (2) Community acquired pneumonia Code(s): J18.9 - PNEUMONIA, UNSPECIFIED ORGANISM Status: Acute (3) COPD (chronic obstructive pulmonary disease) Status: Acute (4) Hypertension Code(s): I10 - ESSENTIAL (PRIMARY) HYPERTENSION Status: Acute - Plan Plan: Acute hypoxic hypercapneic respiratory failure - Likely 2/2 COPD exacerbation and CAP - Patient was intubated (04/03-04/06), has been weaned off O2 - Pulm consulted; appreciate recs - On PO Levaquin ( since 04/08) (Day 9 total of antibiotics), will consider discontinuation of antibiotics today. - Per Dr. Carlin's notes, patient is ready for D/C to SNF or Rehab from a pulmonary standpoint. Awaiting EP recommendations and placement. Atrial Fibrillation w/ RVR, resolved - Onset of Afib with RVR on 04/08. - Per cardiology progress note, the plan is to transition from amiodarone drip yesterday to po cardizem. Monitoring rhythm on telemetry. - EP Consulted, they will see the patient today. Appreciate recommendations. - Cardiology consulted, appreciate recommendations. Community acquired pneumonia, right upper lobe - CXR: RUL infiltrate (04/03) - Blood cultures negative. - 9 days of PO levaquin COPD exacerbation - PO levaquin - Continue steroids and duonebs Code status: Cardiac code only DVT ppx: Lovenox Dispo: Stable, soon to be ready for discharge, rehab screen placed Addendum - Attending - Attending Attestation Date/Time: 04/11/19 1701 I personally evaluated the patient and discussed the management with Dr. Belle. I agree with the History, Examination, Assessment and Plan documented above with any addition or exceptions noted below.
[2019-04-11] MEDS: hydrALAZINE 20 MG/ML VIAL SLOW IVP PRN (07:03)
[2019-04-11] MEDS: Amlodipine 10 MG TAB PO SCH (08:25)
[2019-04-11] MEDS: PHOS-NAK 1 PKT PACK PO SCH (08:25)
[2019-04-11] MEDS: Losartan 25 MG TAB PO SCH (08:25)
[2019-04-11] MEDS: Enoxaparin Sodium 60 MG/0.6 ML SYRINGE SC SCH ×2 (08:25→20:26)
[2019-04-11] MEDS: Polyethylene Glycol 3350 17 GM Packet PO SCH (08:26)
[2019-04-11] MEDS: predniSONE 20 MG TAB PO SCH (08:26)
--- NOTE | 2019-04-11 11:28 | PDOC.CPN ---
- Subjective Date: 04/11/19 Time: 11:30 Interval history: The pt seen and examined. No overnight events. No cardiac complaints - Objective Allergies/Adverse Reactions: Allergies Allergy/AdvReac Type Severity Reaction Status Date / Time No Known Allergies Allergy Verified 05/26/14 18:19 Visit Medications: Current Medications Albuterol/Ipratropium (Duoneb) 3 ml NEB [id number] [facility] Last Admin: 04/11/19 10:55 Dose: Not Given Amlodipine Besylate (Norvasc) 10 mg PO DAILY [facility] Last Admin: 04/11/19 08:25 Dose: 10 mg Atorvastatin Calcium (Lipitor) 10 mg PO HS [facility] Last Admin: 04/10/19 20:14 Dose: 10 mg Enoxaparin Sodium (Lovenox) 50 mg SC 0900,2100 [facility] Last Admin: 04/11/19 08:25 Dose: 50 mg Hydralazine HCl (Apresoline) 5 mg SLOW IVP Q15MIN PRN PRN Reason: SBP Greater Than 180 Last Admin: 04/11/19 07:03 Dose: 5 mg Losartan Potassium (Cozaar) 25 mg PO DAILY [facility] Last Admin: 04/11/19 08:25 Dose: 25 mg Nicotine (Nicoderm Patch) 14 mg TD Q24HR [facility] Last Admin: 04/10/19 20:14 Dose: 14 mg Polyethylene Glycol (Miralax) 17 gm PO DAILY [facility] Last Admin: 04/11/19 08:26 Dose: Not Given Prednisone (Prednisone) 40 mg PO QAM-WM [facility] Last Admin: 04/11/19 08:26 Dose: 40 mg Senna (Senokot) 1 tab PO BIDPRN PRN PRN Reason: Constipation Sodium Chloride (Flush - Normal Saline) 10 ml IVF PRN PRN PRN Reason: Saline Flush Sterile Water (Bacteriostatic Water) 2 ml FS PRN PRN PRN Reason: RECONSTITUTION Vital Signs & Weight: Vital Signs Temp Pulse Resp BP BP Pulse Ox 04/11/19 07:52 100 04/11/19 07:49 98.2 F 66 14 167/75 H 100 04/11/19 07:43 68 16 04/11/19 07:03 72 183/79 H 04/11/19 03:38 97.6 F 72 16 160/79 H 92 L 04/11/19 01:33 82 16 97 04/11/19 00:42 96 Admit Weight 127 lb 9.6 oz Weight 139 lb - Physical Exam General: alert & oriented x3 HEENT: mucus membranes moist Neck: supple neck Cardiac: regular rate and rhythm, S1/S2 Lungs: clear to auscultation, decreased breath sounds - Labs Result Diagrams: 04/10/19 06:17 04/10/19 06:17 - Telemetry Sinus rhythms and dysrhythmias: sinus rhythm - Assessment/Plan Assessment/Plan: 1. Afib with RVR - converted back to SR with Amiodarone drip which was started on 04/08/2019, which will change to Diltiazem 60mg TID;on Lovenox BID; Will request EP consult if further afib. At this time he appears stable.; Plan for stress test to r/o ischemia as a possible etiology of the Afib but I suspect it was due to the COPD/PNA exacrbation. 2. HTN - 3. PVD with s/p CEA - On Plavix and ASA at home 4. HLD - will resume Lipitor 10mg qd 5. COPD - stable with RA 6. hx of CVA - on Plavix and ASA MAR reviewed * Echo on 04/09/2019 with EF 60-65%, mod ERA, mild MR and MI, and mild-mod TR Pt. seen and eval. by me. I agree with the A/P by the PROJECT PRODUCTION ENGINEER. Chest : decr. BS, no rale,rhonchi or wheeze. CV: RRR. Pedal edema.
[2019-04-11] MEDS ORDERED: Diltiazem HCl SR 60 mg Capsule PO SCH (12:00)
[2019-04-11] MEDS ORDERED: Amiodarone 450 MG in Dextrose 5% in Water 250 ML IVPB SCH (13:00)
--- NOTE | 2019-04-11 15:44 | CON ---
DATE OF CONSULTATION: REQUESTING PHYSICIAN: Cate Rob MD. CONSULTING SERVICE: Cardiac Electrophysiology. REASON FOR CONSULTATION: Atrial fibrillation with rapid ventricular rate. HISTORY OF PRESENT ILLNESS: This is a 73-year-old gentleman, who had shortness of breath and was found down in bed by neighbors. He was intubated and found to have pneumonia. He was treated with antibiotics. He also has COPD and apparently had some sepsis as well. He has a history of carotid disease, CVA, and COPD. He is a past smoker. After he was extubated, he had an episode of atrial fibrillation with rapid ventricular rate, treated with intravenous amiodarone, which resulted in conversion back to normal sinus rhythm. We were asked to see him for evaluation. PAST MEDICAL HISTORY: Significant for; 1. CVA. 2. Carotid disease. 3. COPD. 4. Appendectomy. 5. Tonsillectomy. 6. Skin cancers and skin grafts. 7. Hypertension. 8. Hypercholesterolemia. SOCIAL HISTORY: Lives alone. Smokes a pack a day. FAMILY HISTORY: Noncontributory. ALLERGIES: NONE. MEDICATIONS PRIOR TO ADMISSION: 1. Albuterol. 2. Aspirin. 3. Atorvastatin. 4. Symbicort. 5. Plavix. 6. Spiriva. 7. Norvasc. 8. Prednisone. CURRENT MEDICATIONS: Include; 1. Albuterol. 2. Amlodipine. 3. Atorvastatin. 4. Diltiazem. 5. Enoxaparin. 6. Losartan. 7. Nicotine. 8. Prednisone. 9. Senna. 10. Sodium chloride. REVIEW OF SYSTEMS: Comprehensive review of systems otherwise unremarkable. He denies any weight loss, fevers, chills, nausea, vomiting, diarrhea, blood in the urine, blood in the stool, abdominal discomfort, chest discomfort, depression, or ataxia. PHYSICAL EXAMINATION: VITAL SIGNS: His blood pressure is 183/79, heart rate is 74 and regular. NECK: No increased JVP. HEART: Regular rate. Normal S1 and S2. LUNGS: Clear to auscultation. ABDOMEN: Soft and nontender. EXTREMITIES: Without clubbing, cyanosis, or edema. DIAGNOSTIC STUDIES: A 12-lead ECG done on the 03 of April shows normal sinus rhythm and was essentially normal. A 12-lead ECG done on the 08 of April shows atrial fibrillation with rapid ventricular rate and some diffuse nonspecific ST and t wave abnormalities. On 09 of April, similar ECG, but better rate control atrial fibrillation. IMPRESSION: Paroxysmal atrial fibrillation with rapid ventricular rate. RECOMMENDATIONS: Mr. Morris has paroxysmal atrial fibrillation. It is likely that this is somewhat a result of his acute illness and hospitalization due to pneumonia and intubation. Overall given that he has AFib and a prior stroke in addition to his age and history of hypertension, he has an elevated CHADS-VASc score. As such, anticoagulation would generally be recommended. However, I am somewhat concerned about his followup situation. I do believe that if he has stable followup, then I would recommend anticoagulant therapy for him. In terms of antiarrhythmic drugs at the current time, I do not think that antiarrhythmic drugs should be used in part because of unclear followup and compliance situation and in part because I believe that this rhythm was mostly the result of his acute illness. Certainly, if he has recurrences, then antiarrhythmic drugs would be warranted. I would recommend that he follow up with Electrophysiology within the next few weeks, perhaps in the next 6 weeks or so. Many thanks for the opportunity to participate in the care of this patient. Please do not hesitate to contact me for any questions. Job ID: [id number]
[2019-04-11] MEDS: Diltiazem HCl SR 60 mg Capsule PO SCH (20:27)
[2019-04-11] MEDS: Atorvastatin Calcium 10 MG TAB PO SCH (20:27)
[2019-04-11] MEDS: Nicotine 14 MG PATCH TD SCH (20:30)
--- NOTE | 2019-04-12 05:23 | PDOC.FM ---
- Subjective Subjective: Pt doing well this morning. No concerns or complaints this morning. Denies any CP, SOB, palpitations, n/v, d/c, fever/chills. Eager for stress this morning. Discussed social situation, lives alone currently, is open to nursing/SNF placement. - Objective MAR Reviewed: Yes Vital Signs & Weight: Vital Signs (12 hours) Temp Pulse Resp BP BP Pulse Ox 04/12/19 04:00 97.9 F 72 24 H 149/70 H 95 04/12/19 01:32 81 16 95 04/12/19 00:24 94 L 04/12/19 00:00 68 20 04/11/19 22:05 77 16 94 L 04/11/19 20:00 97.2 F L 87 20 126/60 93 L Weight Admit Weight 57.878 kg Weight 63.049 kg Most Recent Monitor Data Heart Rate from ECG 75 NIBP 162/69 NIBP BP-Mean 131 Respiration from ECG 12 SpO2 93 I&O: 04/10/19 04/11/19 04/12/19 06:59 06:59 06:59 Intake Total 1092 1960.4 1015 Output Total 1230 1250 950 Balance -138 710.4 65 Result Diagrams: 04/10/19 06:17 04/10/19 06:17 EKG Reviewed by me: Yes (Tele: NSR) Phys Exam - Physical Examination Constitutional: NAD HEENT: PERRLA, moist MMs Multiple healing abrasions to face, no acute signs of infection Neck: supple Respiratory: no wheezing, no rales, no rhonchi, clear to auscultation bilateral Cardiovascular: RRR, no significant murmur, no rub Gastrointestinal: soft, non-tender, no distention, positive bowel sounds Musculoskeletal: pulses present, edema present (1+ pitting BL to mid-galan) Neurological: non-focal Psychiatric: normal affect, A&O x 3 Dx/Plan (1) Atrial fibrillation with RVR Code(s): I48.91 - UNSPECIFIED ATRIAL FIBRILLATION Status: Resolved (2) Acute respiratory failure with hypoxia Code(s): J96.01 - ACUTE RESPIRATORY FAILURE WITH HYPOXIA Status: Resolved (3) Community acquired pneumonia Code(s): J18.9 - PNEUMONIA, UNSPECIFIED ORGANISM Status: Acute (4) COPD (chronic obstructive pulmonary disease) Status: Chronic (5) Hypertension Code(s): I10 - ESSENTIAL (PRIMARY) HYPERTENSION Status: Chronic - Plan Plan: 73yo CM with h/o COPD, BCC, CVA with persistent L deficit, carotid stenosis, HTN presented in acute hypoxic hypercpaneic respiratory failure, initially intubated and stay in ICU, initially improved, then found to have newonset Afib with RVR, now in sinus and doing well. #Acute hypoxic hypercapneic respiratory failure, resolved - Likely 2/2 COPD exacerbation and CAP - Patient was intubated (04/03-04/06), has been weaned off O2, VSS - Pulm consulted; appreciate recs, pt is improved and per pulm, ready for d/c to SNF or rehab from their standpoint. - Completed course of Levaquin for CAP. Completed coarse of steroids. On home COPD meds with nebs. #Atrial Fibrillation w/ RVR, resolved - Onset of Afib with RVR on 04/08, now resolved and tele demonstrated NSR - Transitioned to PO cardizem, monitoring on tele - Cardiology consulted, apprec recs, stress this AM - EP consulted, recommended no antiarrhythmics 2/2 suspected Afib from acute illness, recommended anticoagulation if pt agreeable with safe home/social situation for monitoring, apprec recs - Will await Cardiology recs on anticoagulation and antiarrhythmics at this time , considering Eliquis. #Community acquired pneumonia, right upper lobe - CXR: RUL infiltrate (04/03) - Blood cultures negative. Completed 10 day course of abx. Now satting well on RA with VSS. #COPD exacerbation - s/p abx, nebs prn. Will d/c steroids at this time as improved respiratory status and s/p 5 day course - Restarted home COPD medications with nebs. IVF: SL Diet: NPO for stress Code status: Cardiac code only DVT ppx: Lovenox Dispo: Stable, improved. Stress this AM. Pending results and cardiology recs, apprec assistance.. Anticipate placement to [facility]/long term once medically cleared, apprec CM assistance. Addendum - Attending - Attending Attestation Date/Time: 04/12/19 [id number] I personally evaluated the patient and discussed the management with Dr. Roberto Crandall I agree with the History, Examination, Assessment and Plan documented above with any addition or exceptions noted below.Need to encourage improved caloric intake supplement ordered. CM to work on placement
[2019-04-12] MEDS: Amlodipine 10 MG TAB PO SCH (12:31)
[2019-04-12] MEDS: Losartan 25 MG TAB PO SCH (12:33)
[2019-04-12] MEDS: Enoxaparin Sodium 60 MG/0.6 ML SYRINGE SC SCH ×2 (12:33→20:48)
[2019-04-12] MEDS: Diltiazem HCl SR 60 mg Capsule PO SCH ×3 (12:33→20:47)
[2019-04-12] MEDS: Polyethylene Glycol 3350 17 GM Packet PO SCH (12:34)
[2019-04-12] MEDS ORDERED: Regadenoson 0.4 MG/5 ML SYRINGE ONE (12:49)
[2019-04-12] MEDS: predniSONE 20 MG TAB PO SCH (12:50)
--- NOTE | 2019-04-12 12:51 | NM ---
NM Cardiac Stress W EF WF HISTORY: New onset atrial fibrillation. COMPARISON: None. FINDINGS: This examination was performed as a 2 day study using 33 mCi of 90 9M technetium sestamibi on both the stress and resting images. This shows a normal distribution of the radiopharmaceutical. There are no signs of ischemia or scar. Wall motion: There is symmetric contractility to the ventricle. Left ventricular ejection fraction: The calculated left ventricular ejection fraction is 77%. IMPRESSION: Unremarkable myocardial perfusion scan.
[2019-04-12] MEDS ORDERED: Aspirin 81 mg Enteric Coated Tablet PO SCH (14:15)
[2019-04-12] MEDS ORDERED: Non-Formulary Item 1 EACH (Budesonide-Formoterol [Symbicort 160-4.5] 2 PUFF) INH SCH (18:30)
[2019-04-12] MEDS: Mometasone/Formoterol 120 PUFF INHALER INH SCH (18:43)
[2019-04-12] MEDS: Atorvastatin Calcium 10 MG TAB PO SCH (20:47)
[2019-04-12] MEDS: Nicotine 14 MG PATCH TD SCH (21:00)
[2019-04-13 04:37] LABS: Hemoglobin 11.8 g/dL (14.0-18.0); Platelet Count 312 thou/uL (130-400)
[2019-04-13 04:57] LABS: Anion Gap 10 mmol/L (10-20); BUN (Urea Nitrogen) 64 mg/dL (8.4-25.7); Calc. Creatinine Clearance 71 mL/min (70-130); Calcium 9.2 mg/dL (7.8-10.44); Carbon Dioxide 32 mmol/L (23-31); Chloride 97 mmol/L (98-107); Estimated GFR-MDRD Greater than 90; Glucose 130 mg/dL (83-110); Potassium 4.7 mmol/L (3.5-5.1); Sodium 134 mmol/L (136-145)
--- NOTE | 2019-04-13 05:35 | PDOC.FM ---
- Subjective Subjective: Pt doing well this morning, no acute events overnight. Denies any CP, sob, n/v, d/c, fever/chills. Working with PT/OT. Eagerly awaiting placement. - Objective MAR Reviewed: Yes Vital Signs & Weight: Vital Signs (12 hours) Temp Pulse Resp BP Pulse Ox 04/13/19 04:00 98.6 F 83 18 139/62 95 04/13/19 00:27 88 20 93 L 04/12/19 20:00 98.7 F 98 18 99/50 L 94 L 04/12/19 18:40 91 24 H 93 L Weight Admit Weight 57.878 kg Weight 62.278 kg Most Recent Monitor Data Heart Rate from ECG 75 NIBP 162/69 NIBP BP-Mean 131 Respiration from ECG 12 SpO2 93 I&O: 04/11/19 04/12/19 04/13/19 06:59 06:59 06:59 Intake Total 1960.4 1255 2496 Output Total 1250 1150 990 Balance 710.4 105 1506 Result Diagrams: 04/13/19 04:14 04/13/19 04:14 Phys Exam - Physical Examination Constitutional: NAD (hard of hearing) HEENT: PERRLA, moist MMs multiple healing abrasions to face and scalp Neck: supple Respiratory: no wheezing, no rales, no rhonchi, clear to auscultation bilateral decrease breath sounds throughout Cardiovascular: RRR, no significant murmur, no rub Gastrointestinal: soft, non-tender, no distention, positive bowel sounds Musculoskeletal: pulses present 1+ pitting edema to mid-galan, slightly worse than previous day's exam Neurological: non-focal, moves all 4 limbs Psychiatric: normal affect, A&O x 3 Dx/Plan (1) Atrial fibrillation with RVR Code(s): I48.91 - UNSPECIFIED ATRIAL FIBRILLATION Status: Resolved (2) Acute respiratory failure with hypoxia Code(s): J96.01 - ACUTE RESPIRATORY FAILURE WITH HYPOXIA Status: Resolved (3) Community acquired pneumonia Code(s): J18.9 - PNEUMONIA, UNSPECIFIED ORGANISM Status: Acute (4) COPD (chronic obstructive pulmonary disease) Status: Chronic (5) Hypertension Code(s): I10 - ESSENTIAL (PRIMARY) HYPERTENSION Status: Chronic - Plan Plan: 73yo CM with h/o COPD, BCC, CVA with persistent L deficit, carotid stenosis, HTN presented in acute hypoxic hypercpaneic respiratory failure, initially intubated and stay in ICU, initially improved, then found to have newonset Afib with RVR, now in sinus and doing well. #Acute hypoxic hypercapneic respiratory failure, resolved - 2/2 COPD exacerbation and CAP - Patient was intubated (04/03-04/06), has been weaned off O2 now, VSS - Pulm consulted; appreciate recs, pt is improved and per pulm, ready for d/c to SNF or rehab from their standpoint. - Completed course of Levaquin for CAP. Completed coarse of steroids. On home COPD meds with nebs. #Atrial Fibrillation w/ RVR, resolved - Onset of Afib with RVR on 04/08, now resolved and tele demonstrated NSR - Transitioned to PO cardizem, monitoring on tele - Cardiology consulted, apprec recs, stress test negative - EP consulted, recommended no antiarrhythmics 2/2 suspected Afib from acute illness, recommended anticoagulation if pt agreeable with safe home/social situation for monitoring, apprec recs - Plan to transition to Eliquis today - [id number] - 3, HASBLED - 3 #Community acquired pneumonia, right upper lobe, resolved - CXR: RUL infiltrate (04/03) - Blood cultures negative. Completed 10 day course of abx. Now satting well on RA with VSS. #COPD exacerbation, resolved - s/p abx, nebs prn. Will d/c steroids at this time as improved respiratory status and s/p 5 day course - Restarted home COPD medications with nebs #Lower extremity edema - EF 60-65% on recent echo - 1+ pitting to mid-galan - Net positive 1.5L in past 24 hours. Elevated BUN and slight bump in Cr this AM. - 20mg IV lasix x1 this morning, will cont to monitor fluid status. #Basal Cell Carcinoma - needs continued f/u with OP Derm IVF: SL Diet: HH Code status: Cardiac code only DVT ppx: Th Lovenox -> transition to Eliquis Dispo: Stable, improved. Stress negative. Apprec EP and Cardiology assistance. Transitioning to oral anticoagulation. Anticipate placement to SNF/prison apprec CM assistance. Addendum - Attending - Attending Attestation Date/Time: 04/13/19 [id number] I personally evaluated the patient and discussed the management with Dr. Crandall I agree with the History, Examination, Assessment and Plan documented above with any addition or exceptions noted below.
[2019-04-13] MEDS ORDERED: Non-Formulary Item 1 EACH (Tiotropium [Spiriva Handihaler] 18 MCG) INH SCH (07:00)
[2019-04-13] MEDS ORDERED: Furosemide 20 MG/2 ML VIAL SLOW IVP SCH (07:15)
[2019-04-13] MEDS: Mometasone/Formoterol 120 PUFF INHALER INH SCH ×2 (08:06→19:18)
[2019-04-13] MEDS: Enoxaparin Sodium 60 MG/0.6 ML SYRINGE SC SCH (09:52)
[2019-04-13] MEDS ORDERED: Apixaban 5 MG TAB PO SCH (10:00)
[2019-04-13] MEDS: Diltiazem HCl SR 60 mg Capsule PO SCH ×3 (10:02→20:37)
[2019-04-13] MEDS: Amlodipine 10 MG TAB PO SCH (10:02)
[2019-04-13] MEDS: Polyethylene Glycol 3350 17 GM Packet PO SCH (10:03)
[2019-04-13] MEDS: Losartan 25 MG TAB PO SCH (10:03)
[2019-04-13] MEDS: Atorvastatin Calcium 10 MG TAB PO SCH (20:36)
[2019-04-13] MEDS: Apixaban 5 MG TAB PO SCH (20:36)
[2019-04-13] MEDS: Nicotine 14 MG PATCH TD SCH (20:37)
[2019-04-14] MEDS: Mometasone/Formoterol 120 PUFF INHALER INH SCH ×2 (07:00→18:27)
--- NOTE | 2019-04-14 09:14 | PDOC.FM ---
- Subjective Subjective: Patient is doing well this morning, no complaints. - Objective Vital Signs & Weight: Vital Signs (12 hours) Temp Pulse Resp BP Pulse Ox 04/14/19 03:20 98.0 F 70 16 104/55 L 92 L 04/14/19 01:00 72 18 95 04/13/19 23:20 97.7 F 68 20 105/58 L 93 L Weight Admit Weight 57.878 kg Weight 62.278 kg Most Recent Monitor Data Heart Rate from ECG 75 NIBP 162/69 NIBP BP-Mean 131 Respiration from ECG 12 SpO2 93 I&O: 04/13/19 04/14/19 04/15/19 06:59 06:59 06:59 Intake Total 2496 2028 Output Total 990 1125 Balance 1506 903 Result Diagrams: 04/14/19 09:38 04/14/19 09:38 Phys Exam - Physical Examination Constitutional: NAD HEENT: moist MMs, sclera anicteric Neck: supple, full ROM Respiratory: no wheezing, no rales, no rhonchi, clear to auscultation bilateral Cardiovascular: RRR, no significant murmur, no rub Gastrointestinal: soft, non-tender, no distention trace edema bilaterally Psychiatric: normal affect, A&O x 3 Skin: no rash, normal turgor Dx/Plan (1) Acute respiratory failure with hypoxia Code(s): J96.01 - ACUTE RESPIRATORY FAILURE WITH HYPOXIA Status: Resolved (2) Community acquired pneumonia Code(s): J18.9 - PNEUMONIA, UNSPECIFIED ORGANISM Status: Acute (3) COPD (chronic obstructive pulmonary disease) Status: Chronic (4) Hypertension Code(s): I10 - ESSENTIAL (PRIMARY) HYPERTENSION Status: Chronic - Plan Plan: 73yo CM with h/o COPD, BCC, CVA with persistent L deficit, carotid stenosis, HTN presented in acute hypoxic hypercpaneic respiratory failure, initially intubated and stay in ICU, initially improved, then found to have newonset Afib with RVR, now in sinus and doing well. Acute hypoxic hypercapneic respiratory failure, resolved - 2/2 COPD exacerbation and CAP - Patient was intubated (04/03-04/06), has been weaned off O2 now, VSS - Pulm consulted; appreciate recs, pt is improved and per pulm, ready for d/c to SNF or rehab from their standpoint. - Completed course of Levaquin for CAP. Completed coarse of steroids. On home COPD meds with nebs. - awaiting placement Atrial Fibrillation w/ RVR, resolved - Onset of Afib with RVR on 04/08, now resolved and tele demonstrated NSR - Transitioned to PO cardizem, monitoring on tele - Cardiology consulted, apprec recs, stress test negative - EP consulted, recommended no antiarrhythmics 2/2 suspected Afib from acute illness, recommended anticoagulation if pt agreeable with safe home/social situation for monitoring, apprec recs - Plan to transition to Eliquis today - [id number] - 3, HASBLED - 3 Community acquired pneumonia, right upper lobe, resolved - CXR: RUL infiltrate (04/03) - Blood cultures negative. Completed 10 day course of abx. Now satting well on RA with VSS. COPD exacerbation, resolved - s/p abx, nebs prn. Will d/c steroids at this time as improved respiratory status and s/p 5 day course - Restarted home COPD medications with nebs Lower extremity edema - EF 60-65% on recent echo - 1+ pitting to mid-galan - Net positive 1.5L in past 24 hours. Elevated BUN and slight bump in Cr this AM. - 20mg IV lasix x1 this morning, will cont to monitor fluid status. Basal Cell Carcinoma - needs continued f/u with OP Derm IVF: SL Diet: HH Code status: Cardiac code only DVT ppx: Th Lovenox -> transition to Eliquis Dispo: Stable, improved. Stress negative. Apprec EP and Cardiology assistance. Transitioning to oral anticoagulation. Anticipate placement to SNF/correction apprec CM assistance.
[2019-04-14] MEDS: Amlodipine 10 MG TAB PO SCH (09:29)
[2019-04-14] MEDS: Apixaban 5 MG TAB PO SCH ×2 (09:31→20:49)
[2019-04-14] MEDS: Polyethylene Glycol 3350 17 GM Packet PO SCH (09:31)
[2019-04-14] MEDS: Diltiazem HCl SR 60 mg Capsule PO SCH ×3 (09:31→20:49)
[2019-04-14] MEDS: Losartan 25 MG TAB PO SCH (09:31)
[2019-04-14 10:14] LABS: Hemoglobin 9.5 g/dL (14.0-18.0); Mean Corpuscular HGB CONC 32.6 g/dL (32.0-36.0); Mean Corpuscular Hemoglobin 28.9 pg (27.0-31.0); Mean Corpuscular Volume 88.6 fL (78.0-98.0); Mean Platelet Volume 6.8 fL (7.4-10.4); Platelet Count 304 thou/uL (130-400); RBC Distribution Width 15.3 % (11.5-14.5); Red Blood Cell (RBC) Count 3.28 mill/uL (4.70-6.10); White Blood Cell (WBC) Count 20.8 thou/uL (4.8-10.8)
[2019-04-14 10:25] LABS: Anion Gap 11 mmol/L (10-20); BUN (Urea Nitrogen) 79 mg/dL (8.4-25.7); Calc. Creatinine Clearance 75 mL/min (70-130); Calcium 8.8 mg/dL (7.8-10.44); Carbon Dioxide 33 mmol/L (23-31); Chloride 97 mmol/L (98-107); Estimated GFR-MDRD Greater than 90; Glucose 102 mg/dL (83-110); Potassium 5.1 mmol/L (3.5-5.1); Sodium 136 mmol/L (136-145)
[2019-04-14 10:27] LABS: Anisocytosis SLIGHT = 6-15 cells (100X) (0-5/hpf); Lymphocytes 6 % (21-51); MDiff Complete? YES; Monocytes 11 % (0-10); Neutrophil 83 % (42-75); Platelet Morphology Comment Appears Adequate; Polychromasia SLIGHT = 2-3 cells (100X) (0-2/hpf)
--- NOTE | 2019-04-14 14:58 | PRG ---
DATE OF SERVICE: 04/14/2019 ADDENDUM: This is an addendum to the note of Dr. Shira Belle. I have examined the patient and discussed the case with Dr. Belle. I agree with her assessment and plan. Job ID: [id number]
--- NOTE | 2019-04-14 16:57 | PDOC.CPN ---
- Subjective Date: 04/14/19 Time: 16:54 Interval history: No new issues. He is breathing back to baseline. - Review of Systems General: denies: fever/chills, weight/appetite/sleep changes, night sweats, fatigue Respiratory: reports: cough, shortness of breath. denies: congestion, exercise intolerance Cardiovascular: denies: chest pain, palpitation, edema, paroxysmal nocturnal dyspnea, orthopnea Gastrointestinal: denies: nausea, vomiting, diarrhea, constipation, abd pain, GI bleeding Musculoskeletal: denies: pain, tenderness, stiffness, swelling, arthritis/ arthralgias Neurological: reports: numbness. denies: syncope, seizure, weakness - Objective Allergies/Adverse Reactions: Allergies Allergy/AdvReac Type Severity Reaction Status Date / Time No Known Allergies Allergy Verified 05/26/14 18:19 Visit Medications: Current Medications Albuterol/Ipratropium (Duoneb) 3 ml NEB [id number] [facility] Last Admin: 04/14/19 12:41 Dose: 3 ml Amlodipine Besylate (Norvasc) 10 mg PO DAILY [facility] Last Admin: 04/14/19 09:29 Dose: 10 mg Apixaban (Eliquis) 5 mg PO BID [facility] Last Admin: 04/14/19 09:31 Dose: 5 mg Atorvastatin Calcium (Lipitor) 10 mg PO HS [facility] Last Admin: 04/13/19 20:36 Dose: 10 mg Diltiazem HCl (Cardizem Sr) 60 mg PO TID [facility] Last Admin: 04/14/19 14:31 Dose: 60 mg Hydralazine HCl (Apresoline) 5 mg SLOW IVP Q15MIN PRN PRN Reason: SBP Greater Than 180 Last Admin: 04/11/19 07:03 Dose: 5 mg Mometasone Furoate/Formoterol Fumar (Dulera 200 Mcg/5 Mcg Inhaler) 2 puff INH BID-RT [facility] Last Admin: 04/14/19 07:00 Dose: 2 puff Nicotine (Nicoderm Patch) 14 mg TD Q24HR [facility] Last Admin: 04/13/19 20:37 Dose: Not Given Pantoprazole Sodium (Protonix) 40 mg PO DAILY [facility] Last Admin: 04/14/19 14:31 Dose: Not Given Polyethylene Glycol (Miralax) 17 gm PO DAILY [facility] Last Admin: 12/09/19 09:31 Dose: 17 gm Senna (Senokot) 1 tab PO BIDPRN PRN PRN Reason: Constipation Sodium Chloride (Flush - Normal Saline) 10 ml IVF PRN PRN PRN Reason: Saline Flush Sterile Water (Bacteriostatic Water) 2 ml FS PRN PRN PRN Reason: RECONSTITUTION Vital Signs & Weight: Vital Signs Temp Pulse Resp BP BP Pulse Ox 04/14/19 12:41 70 16 04/14/19 12:00 97.7 F 86 20 111/62 94 L 04/14/19 09:29 79 121/68 04/14/19 08:00 97.8 F 78 20 121/68 94 L Admit Weight 127 lb 9.6 oz Weight 137 lb 4.8 oz - Physical Exam General: alert & oriented x3 HEENT: mucus membranes moist Neck: supple neck Cardiac: regular rate and rhythm Lungs: no wheeze, rales, rhonchi, decreased breath sounds Abdomen: active bowel sounds, soft, non-tender Extremities: no edema Skin: clear Musculoskeletal: no pain - Labs Result Diagrams: 04/14/19 09:38 04/14/19 09:38 - Assessment/Plan Assessment/Plan: 1. Afib with RVR, in sinus now. 2. HTN 3. PVD s/p CEA 4. HLD 5. COPD with acute exacerbation, improved 6. Hx of CVA \ PLAN: - Back to sinus rhythm - CHADS VASc score of at 5 (HTN, Age, PVD, prior CVA), agree with full anticoagulation with Eliquis 5 mg BID. - Diltiazem PO. - Stable from CV standpoint.
[2019-04-14] MEDS: Atorvastatin Calcium 10 MG TAB PO SCH (20:49)
[2019-04-14] MEDS: Nicotine 14 MG PATCH TD SCH (20:50)
[2019-04-15 05:47] LABS: Hemoglobin 8.3 g/dL (14.0-18.0); Mean Corpuscular HGB CONC 32.4 g/dL (32.0-36.0); Mean Corpuscular Hemoglobin 28.9 pg (27.0-31.0); Mean Corpuscular Volume 89.1 fL (78.0-98.0); Mean Platelet Volume 6.7 fL (7.4-10.4); Platelet Count 254 thou/uL (130-400); RBC Distribution Width 15.4 % (11.5-14.5); Red Blood Cell (RBC) Count 2.89 mill/uL (4.70-6.10); White Blood Cell (WBC) Count 16.7 thou/uL (4.8-10.8)
--- NOTE | 2019-04-15 06:01 | PDOC.FM ---
- Subjective Subjective: Mr. Morris is doing well this morning. He has not had a BM since yesterday. He otherwise feels fine. His feet are swollen and painful. - Objective MAR Reviewed: Yes Vital Signs & Weight: Vital Signs (12 hours) Temp Pulse Resp BP Pulse Ox 04/15/19 04:24 97.2 F L 68 18 125/88 95 04/15/19 00:30 97.5 F L 74 16 102/55 L 95 04/15/19 00:04 74 16 93 L 04/14/19 20:35 97.6 F 78 16 104/60 95 04/14/19 18:22 78 16 98 Weight Admit Weight 57.878 kg Weight 64.637 kg Most Recent Monitor Data Heart Rate from ECG 75 NIBP 162/69 NIBP BP-Mean 131 Respiration from ECG 12 SpO2 93 I&O: 04/13/19 04/14/19 04/15/19 06:59 06:59 06:59 Intake Total 2496 2028 1200 Output Total 990 1125 400 Balance 1506 903 800 Result Diagrams: 04/15/19 05:08 04/14/19 09:38 Phys Exam - Physical Examination Constitutional: NAD HEENT: PERRLA, moist MMs, sclera anicteric Neck: supple, full ROM Respiratory: no wheezing, no rales, no rhonchi, clear to auscultation bilateral Cardiovascular: RRR, no significant murmur, no rub Gastrointestinal: soft, non-tender, no distention 1+ pitting edema BLE Neurological: non-focal, normal sensation Psychiatric: normal affect, A&O x 3 Skin: no rash, cap refill <2 seconds Dx/Plan (1) Acute respiratory failure with hypoxia Code(s): J96.01 - ACUTE RESPIRATORY FAILURE WITH HYPOXIA Status: Resolved (2) Community acquired pneumonia Code(s): J18.9 - PNEUMONIA, UNSPECIFIED ORGANISM Status: Acute (3) COPD (chronic obstructive pulmonary disease) Status: Chronic (4) Hypertension Code(s): I10 - ESSENTIAL (PRIMARY) HYPERTENSION Status: Chronic - Plan Plan: 73yo CM with h/o COPD, BCC, CVA with persistent L deficit, carotid stenosis, HTN presented in acute hypoxic hypercpaneic respiratory failure, initially intubated and stay in ICU, initially improved, then found to have newonset Afib with RVR, now in sinus and doing well. Upper gastrointestinal bleed - Was in ICU and intubated, as well as started on Eliquis. - Patient has had dark black, constipated stools x 2 days. - Hb 11.8 > 8.3. Came in at Hb of 10.5. - Protonix PO BID. - Will monitor with daily H/H and consult GI Acute hypoxic hypercapneic respiratory failure, resolved - Patient was intubated (04/03-04/06), treated for CAP. Atrial Fibrillation w/ RVR, resolved - Transitioned to PO cardizem, monitoring on tele, [id number] of 5. - Cardiology consulted, appreciate recommendations. - EP Consulted, recommended anticoagulation if patient will be following up. Recommend no antiarrhythmic at this time. - Hold Eliquis until GI bleed has resolved. Community acquired pneumonia, right upper lobe, resolved COPD exacerbation, resolved - Restarted home COPD medications with nebs Lower extremity edema - EF 60-65% on recent echo - Net positive I/O Basal Cell Carcinoma - needs continued f/u with OP Derm IVF: SL Diet: HH Code status: Cardiac code only DVT ppx: Th Lovenox -> transition to Eliquis Dispo: Stable, awaiting placement
[2019-04-15] MEDS: Mometasone/Formoterol 120 PUFF INHALER INH SCH ×2 (08:09→19:24)
[2019-04-15] MEDS: Amlodipine 10 MG TAB PO SCH (08:27)
[2019-04-15] MEDS: Apixaban 5 MG TAB PO SCH (08:28)
[2019-04-15] MEDS: Polyethylene Glycol 3350 17 GM Packet PO SCH (08:28)
[2019-04-15] MEDS: Diltiazem HCl SR 60 mg Capsule PO SCH (10:14)
--- NOTE | 2019-04-15 11:05 | PDOC.CPN ---
- Subjective Date: 04/15/19 Time: 10:30 - Review of Systems Respiratory: denies: cough, congestion, shortness of breath Cardiovascular: reports: edema. denies: chest pain, palpitation Gastrointestinal: denies: nausea, diarrhea Musculoskeletal: reports: swelling (lower leg and pedal edema.). denies: pain - Objective Allergies/Adverse Reactions: Allergies Allergy/AdvReac Type Severity Reaction Status Date / Time No Known Allergies Allergy Verified 05/26/14 18:19 Visit Medications: Current Medications Albuterol/Ipratropium (Duoneb) 3 ml NEB [id number] [facility] Last Admin: 04/15/19 08:08 Dose: 3 ml Amlodipine Besylate (Norvasc) 10 mg PO DAILY [facility] Last Admin: 04/15/19 08:27 Dose: Not Given Atorvastatin Calcium (Lipitor) 10 mg PO HS [facility] Last Admin: 04/14/19 20:49 Dose: 10 mg Digoxin (Lanoxin) 0.125 mg PO QPM [facility] Hydralazine HCl (Apresoline) 5 mg SLOW IVP Q15MIN PRN PRN Reason: SBP Greater Than 180 Last Admin: 04/11/19 07:03 Dose: 5 mg Mometasone Furoate/Formoterol Fumar (Dulera 200 Mcg/5 Mcg Inhaler) 2 puff INH BID-RT [facility] Last Admin: 04/15/19 08:09 Dose: 2 puff Nicotine (Nicoderm Patch) 14 mg TD Q24HR [facility] Last Admin: 04/14/19 20:50 Dose: 14 mg Pantoprazole Sodium (Protonix) 40 mg PO BID [facility] Last Admin: 04/15/19 08:28 Dose: 40 mg Polyethylene Glycol (Miralax) 17 gm PO DAILY [facility] Last Admin: 04/15/19 08:28 Dose: 17 gm Senna (Senokot) 1 tab PO BIDPRN PRN PRN Reason: Constipation Sodium Chloride (Flush - Normal Saline) 10 ml IVF PRN PRN PRN Reason: Saline Flush Sterile Water (Bacteriostatic Water) 2 ml FS PRN PRN PRN Reason: RECONSTITUTION Vital Signs & Weight: Vital Signs Temp Pulse Resp BP Pulse Ox 04/15/19 08:27 79 04/15/19 08:08 79 16 95 04/15/19 08:00 97.3 F L 89 18 96/50 L 100 04/15/19 04:24 97.2 F L 68 18 125/88 95 04/15/19 00:30 97.5 F L 74 16 102/55 L 95 04/15/19 00:04 74 16 93 L Admit Weight 127 lb 9.6 oz Weight 142 lb 8 oz - Quality Measures CV meds: Beta Shanell: No (copd), MAURY/ARB: No, Statin: No, ASA: No, Plavix/ Effient/Brilinta: No, Anticoagulant: Yes (Eliquis for Afib.) - Physical Exam HEENT: normocephaly Neck: supple neck, no masses Cardiac: no murmur, regular rhythm Lungs: clear to auscultation Neuro: grossly intact, motor function intact Abdomen: unremarkable Extremities: 2+ LE edema Skin: other (multiple areas of skin cancer removal with grafts.) Musculoskeletal: fluid collection - Labs Result Diagrams: 04/15/19 05:08 04/14/19 09:38 - Assessment/Plan Assessment/Plan: 1. Afib with RVR, in sinus now. 2. HTN , now hypotensive and vol. depleted. 3. PVD s/p CEA 4. HLD: no recent labs and not on a statin. check FLP in AM 5. COPD with acute exacerbation, improved 6. Hx of CVA 7. Pre-renal azotemia. Pt. is over diuresed. Encourage po intake or add IV fluids. 8. lower leg edema despite diuresis. This may be due to amlodipine. I will d/c this med and see if the edema improves. It is painful for the pt to walk due to the edema. PLAN: -Afib. - Back to sinus rhythm - CHADS VASc score of at 5 (HTN, Age, PVD, prior CVA), agree with full anticoagulation with Eliquis 5 mg BID. - Diltiazem PO. This can be increased if the BP increases. But the lower leg edema may also increase. - Stable from CV standpoint.
[2019-04-15 14:29] LABS: ALT (SGPT) 19 U/L (8-55); AST (SGOT) 21 U/L (5-34); Albumin 2.9 g/dL (3.4-4.8); Alkaline Phosphatase 73 U/L (40-110); BUN (Urea Nitrogen) 47 mg/dL (8.4-25.7); Bilirubin, Total 0.3 mg/dL (0.2-1.2); Calc. Creatinine Clearance 83 mL/min (70-130); Calcium 8.2 mg/dL (7.8-10.44); Carbon Dioxide 33 mmol/L (23-31); Estimated GFR-MDRD Greater than 90; Glucose 141 mg/dL (83-110); Protein, Total 5.9 g/dL (5.8-8.1)
[2019-04-15 14:37] LABS: Anion Gap 8 mmol/L (10-20); Chloride 99 mmol/L (98-107); Potassium 4.1 mmol/L (3.5-5.1); Sodium 135 mmol/L (136-145)
--- NOTE | 2019-04-15 15:37 | CON ---
DATE OF CONSULTATION: 04/15/2019 REASON FOR CONSULT: Suspected GI bleed. HISTORY OF PRESENT ILLNESS: Mr. Morris is a 73-year-old gentleman, who has been here in the hospital since 04/03 and he was admitted with being found unresponsive with difficulty breathing by neighbors and then brought into the emergency room. He was found to have pneumonia and placed on BiPAP and then, the patient had to be intubated. Apparently, he was in the ICU for several days and was ultimately extubated and is now on the surgical floor. During the hospitalization, he did develop atrial fibrillation and he was put on some anticoagulation. In the past two days, his hemoglobin has been noted to drop from a baseline of around 10 or 11, 9.5 on 04/14, and then, 8.3 today. With this, he has been noted to have dark stools. The [facility] residents did a rectal exam and found melena in course. They have asked me to see him for possible bleeding. They were concerned he either had not been or was not on adequate ulcer prophylaxis. Started on Protonix yesterday at 2100 hours. Presently, the patient has been eating today. He denies any complaints. He has had no bowel movements today. He states he did not have much of his appetite, but attributes to the food here. PAST MEDICAL HISTORY: Severe COPD, skin cancers, prior CVAs, carotid disease, and hyperlipidemia. PAST SURGICAL HISTORY: Appendectomy, skin cancer, and skin grafts in head and facial area. SOCIAL HISTORY: Lives alone. Smokes a pack per day for about 50 years. FAMILY HISTORY: Noncontributory. ALLERGIES: NONE KNOWN. MEDICATIONS: Prior to admission; 1. Albuterol. 2. Aspirin. 3. Atorvastatin. 4. Symbicort. 5. Plavix. 6. Spiriva. 7. Norvasc. 8. Prednisone. Present medications here; 1. Amlodipine. 2. Eliquis. 3. Atorvastatin. 4. Diltiazem. 5. Hydralazine. 6. Ipratropium bromide. 7. Nicoderm patch. 8. Protonix 40 p.o. b.i.d. 9. MiraLAX p.r.n. PHYSICAL EXAMINATION: GENERAL: He is presently resting comfortably in the bedside chair. He is alert and oriented. He is pretty hard of hearing. He has a lot of skin grafts to his head, neck, face, and scalp. He has a crusted lesion on his lower lip and chin area. VITAL SIGNS: Temperature is 97, pulse 80, and blood pressure is 97/53. His rates cannot run for the past several days. LUNGS: Coarse rhonchi bilaterally. HEART: Regular rate and rhythm. ABDOMEN: Soft and nontender with no rebound or guarding. EXTREMITIES: Reveal some edema. LABORATORY DATA: Sodium 136 yesterday, potassium 5.1, BUN and creatinine are 79 and 0.7 and on the , it were 17 and 0.5 and on the , it were 64 and 0.8. On 04/08, he had normal liver function tests. INR on the was 1.1. ASSESSMENT: 1. Mr. Morris is a 73-year-old, who was admitted with pneumonia and intubated for a time, he has severe vascular disease and atrial fibrillation and was started on Eliquis. This was held last night when there began some concern about melena and some drop in hemoglobin. 2. With drop in hemoglobin, he has had no overt signs of acute hemorrhage, but I agree this may represent upper gastrointestinal blood loss from ulcer disease. I reviewed the chart. It is difficult for me to tell what he was on in the ICU, but the [facility] Resident Service is concerned about the lack of ulcer prophylaxis at that time. In any event, he has been started on a proton pump inhibitor b.i.d. now. He has had a slight drop in hemoglobin. His baseline here when he came in was 10.6, he is 8.3 presently, but his BUN has increased, which may be from the absorption of small bowel protein and blood consistent with upper gastrointestinal bleed. RECOMMENDATIONS: 1. Agree with p.o. b.i.d. PPI. 2. Monitor H and H q.8 hours, transfuse if necessary. We will defer to the [facility] Services in-house to do that. 3. We will tentatively plan for EGD tomorrow and hold his Eliquis. If his hemoglobin remained stable and it was felt to be prohibitive risk from cardiopulmonary standpoint, we can always treat him medically and hold the anticoagulation for a few weeks. Job ID: [id number]
[2019-04-15] MEDS: Atorvastatin Calcium 10 MG TAB PO SCH (20:21)
[2019-04-15] MEDS ORDERED: Digoxin 0.125 MG TAB PO SCH (21:00)
[2019-04-16 06:16] LABS: Hemoglobin 8.6 g/dL (14.0-18.0); Platelet Count 279 thou/uL (130-400)
[2019-04-16 06:31] LABS: Cardiac Risk 2.5 (Less than 4.5)
[2019-04-16] MEDS: Mometasone/Formoterol 120 PUFF INHALER INH SCH ×2 (07:25→19:06)
--- NOTE | 2019-04-16 08:08 | PRG ---
DATE OF SERVICE: 04/15/2019 ADDENDUM: I have read and agree with the assessment and plan of Dr. Shira Belle. Job ID: [id number]
[2019-04-16] MEDS: Polyethylene Glycol 3350 17 GM Packet PO SCH (08:13)
[2019-04-16] MEDS ORDERED: PROPOFOL 200 MG/20 ML VIAL ONE (09:33)
--- NOTE | 2019-04-16 09:58 | PDOC.EVN ---
Event Note - Event Note Event Note: 73yo M with resolved PNA, resolved Afib with RVR, and new suspected GI bleed 2/ 2 Eliquis. Plan for EGD today. BP's improved. Plan to restart diltiazam today and continue to hold Eliquis. I agree with Dr. Belle's assessment above. Written by Dr. Damian Freed.
--- NOTE | 2019-04-16 12:19 | PDOC.FM ---
- Subjective Subjective: Patient doing well today - Objective Vital Signs & Weight: Vital Signs (12 hours) Temp Pulse Resp BP Pulse Ox 04/16/19 07:37 97.2 F L 72 16 125/53 L 96 04/16/19 07:23 71 16 94 L 04/16/19 03:13 97.1 F L 73 16 108/57 L 94 L Weight Admit Weight 57.878 kg Weight 64.637 kg Most Recent Monitor Data Heart Rate from ECG 75 NIBP 162/69 NIBP BP-Mean 131 Respiration from ECG 12 SpO2 93 I&O: 04/15/19 04/16/19 04/17/19 06:59 06:59 06:59 Intake Total 1200 2100 Output Total 1650 600 Balance -450 1500 Result Diagrams: 04/16/19 05:21 04/15/19 13:50 Phys Exam - Physical Examination Constitutional: NAD HEENT: PERRLA, moist MMs Neck: supple, full ROM Respiratory: no wheezing, no rales, no rhonchi, clear to auscultation bilateral Cardiovascular: RRR, no significant murmur, no rub Gastrointestinal: soft, non-tender, no distention, positive bowel sounds Trace pedal edema bilaterally Neurological: non-focal, normal sensation Psychiatric: normal affect, A&O x 3 Skin: no rash, normal turgor Deviation from normal: Multiple lesions present on face Dx/Plan (1) Acute respiratory failure with hypoxia Code(s): J96.01 - ACUTE RESPIRATORY FAILURE WITH HYPOXIA Status: Resolved (2) Community acquired pneumonia Code(s): J18.9 - PNEUMONIA, UNSPECIFIED ORGANISM Status: Acute (3) COPD (chronic obstructive pulmonary disease) Status: Chronic (4) Hypertension Code(s): I10 - ESSENTIAL (PRIMARY) HYPERTENSION Status: Chronic - Plan Plan: 73yo CM with h/o COPD, BCC, CVA with persistent L deficit, carotid stenosis, HTN presented in acute hypoxic hypercpaneic respiratory failure, initially intubated and stay in ICU, initially improved, then found to have newonset Afib with RVR, now in sinus and doing well. Upper gastrointestinal bleed - Was in ICU and intubated, as well as started on Eliquis. - Patient has had dark black, constipated stools x 2 days. - Hb 11.8 > 8.3. Came in at Hb of 10.5. - Protonix PO BID. - GI contacted, planned for EGD today Acute hypoxic hypercapneic respiratory failure, resolved - Patient was intubated (04/03-04/06), treated for CAP. Atrial Fibrillation w/ RVR, resolved - Transitioned to PO cardizem, monitoring on tele, [id number] of 5. - Cardiology consulted, appreciate recommendations. - EP Consulted, recommended anticoagulation if patient will be following up. Recommend no antiarrhythmic at this time. - Hold Eliquis until GI bleed has resolved. Community acquired pneumonia, right upper lobe, resolved COPD exacerbation, resolved - Restarted home COPD medications with nebs Lower extremity edema - EF 60-65% on recent echo - Net positive I/O Basal Cell Carcinoma - needs continued f/u with OP Derm IVF: SL Diet: HH Code status: Cardiac code only DVT ppx: Th Lovenox -> transition to Eliquis Dispo: Stable, awaiting placement
--- NOTE | 2019-04-16 12:57 | PDOC.CPN ---
- Subjective Date: 04/16/19 Time: 08:30 Interval history: The pt seen and examined. No overnight events. No cardiac complaints. - Objective Allergies/Adverse Reactions: Allergies Allergy/AdvReac Type Severity Reaction Status Date / Time No Known Allergies Allergy Verified 05/26/14 18:19 Visit Medications: Current Medications Albuterol/Ipratropium (Duoneb) 3 ml NEB [id number] MICHAEL Last Admin: 04/16/19 12:42 Dose: Not Given Atorvastatin Calcium (Lipitor) 10 mg PO HS MICHAEL Last Admin: 04/15/19 20:21 Dose: 10 mg Hydralazine HCl (Apresoline) 5 mg SLOW IVP Q15MIN PRN PRN Reason: SBP Greater Than 180 Last Admin: 04/11/19 07:03 Dose: 5 mg Mometasone Furoate/Formoterol Fumar (Dulera 200 Mcg/5 Mcg Inhaler) 2 puff INH BID-RT MICHAEL Last Admin: 04/16/19 07:25 Dose: 2 puff Nicotine (Nicoderm Patch) 14 mg TD Q24HR MICHAEL Last Admin: 04/14/19 20:50 Dose: 14 mg Pantoprazole Sodium (Protonix) 40 mg PO BID MICHAEL Last Admin: 04/16/19 08:14 Dose: Not Given Polyethylene Glycol (Miralax) 17 gm PO DAILY MICHAEL Last Admin: 04/16/19 08:13 Dose: Not Given Senna (Senokot) 1 tab PO BIDPRN PRN PRN Reason: Constipation Sodium Chloride (Flush - Normal Saline) 10 ml IVF PRN PRN PRN Reason: Saline Flush Sterile Water (Bacteriostatic Water) 2 ml FS PRN PRN PRN Reason: RECONSTITUTION Vital Signs & Weight: Vital Signs Temp Pulse Resp BP Pulse Ox 04/16/19 07:37 97.2 F L 72 16 125/53 L 96 04/16/19 07:23 71 16 94 L 04/16/19 03:13 97.1 F L 73 16 108/57 L 94 L Admit Weight 127 lb 9.6 oz Weight 142 lb 8 oz - Quality Measures CV meds: Beta Shanell: No (copd), MAURY/ARB: No, Statin: No, ASA: No, Plavix/ Effient/Brilinta: No, Anticoagulant: Yes (Eliquis for Afib.) - Physical Exam General: alert & oriented x3 HEENT: mucus membranes moist Neck: supple neck Cardiac: regular rate and rhythm, S1/S2 Lungs: decreased breath sounds Neuro: cranial nerve 2-12 intact - Labs Result Diagrams: 04/16/19 05:21 04/15/19 13:50 - Telemetry Sinus rhythms and dysrhythmias: sinus rhythm - Assessment/Plan Assessment/Plan: 1. Afib with RVR - regular HR by auscultation. Not on antiarrhythmics med or BBlocker due to hypotension; Eliquis is on hold . 2. HTN , now hypotensive and vol. depleted. 3. PVD s/p CEA 4. HLD: LDL on 04/15/2019 was 58 with not statin. 5. COPD with acute exacerbation, improved; stable with RA 6. Hx of CVA 7. Pre-renal azotemia. Pt. is over diuresed. Encourage po intake or add IV fluids. 8. lower leg edema despite diuresis. This may be due to amlodipine. I d/c'd this med. Edema still not improved. It is painful for the pt to walk due to the edema. 9. GI bleeding. EGD done today. MAR reviewed
[2019-04-16] MEDS ORDERED: Enoxaparin Sodium 40 MG/0.4 ML SYRINGE SC SCH (14:15)
[2019-04-16] MEDS ORDERED: Promethazine HCl 25 MG/ML VIAL IM PRN (14:16)
[2019-04-16] MEDS ORDERED: Ondansetron HCl/PF 4 MG/2 ML Vial IVP PRN (14:16)
[2019-04-16] MEDS ORDERED: Promethazine HCl 25 MG/ML VIAL SLOW IVP PRN (14:16)
[2019-04-16] MEDS: Nicotine 14 MG PATCH TD SCH ×2 (14:50→20:31)
[2019-04-16] MEDS: Atorvastatin Calcium 10 MG TAB PO SCH (20:30)
--- NOTE | 2019-04-16 21:00 | OP ---
DATE OF PROCEDURE: 04/16/2019 OPERATIVE PROCEDURE: Esophagogastroduodenoscopy with biopsy. PREOPERATIVE DIAGNOSES: A 73-year-old male with melena, anemia due to blood loss. He is undergoing EGD. POSTOPERATIVE DIAGNOSES: 1. Esophageal ulcer x2, distal esophagus. 2. Hiatus hernia. 3. Large and deep ulceration over the duodenal bulb, no bleeding seen. DESCRIPTION OF PROCEDURE: The patient was placed on his left lateral position and was given sedation by Anesthesia Department. A Pentax video gastroscope under direct vision passed down the oropharynx past the GE junction into the stomach and subsequently into descending duodenum. At the time of endoscopy, the stomach was completely free of any blood or any more blood. Also duodenum showed no blood. The esophageal mucosa appears normal over the upper two-thirds and over the distal esophagus, the patient was found to have 2 ulcerations and the esophageal mucosa otherwise appeared normal. In the GE junction, no lesion was seen. Had a hiatus hernia. Retroflexion failed to show any pathology in fundus or cardia. The gastric body, gastric incisura, antrum, no lesion seen. The patient had an ulceration, which appears quite deep and large over the duodenal bulb. The ulcer base appears smooth and does not show any visible vessel. The descending duodenum with no pathology. Biopsy obtained of the gastric antrum and gastric body. The stomach decompressed and the scope removed. RECOMMENDATION: 1. Continue PPI. 2. Follow up H and H. 3. Transfuse p.r.n. Job ID: [id number]
[2019-04-17 06:08] LABS: Hemoglobin 8.7 g/dL (14.0-18.0); Platelet Count 295 thou/uL (130-400)
[2019-04-17] MEDS: Mometasone/Formoterol 120 PUFF INHALER INH SCH ×2 (08:08→19:00)
[2019-04-17] MEDS: Senokot 8.6 MG TAB PO PRN (08:45)
[2019-04-17] MEDS: Polyethylene Glycol 3350 17 GM Packet PO SCH (08:45)
[2019-04-17] MEDS ORDERED: Enoxaparin Sodium 40 MG/0.4 ML SYRINGE SC SCH (09:00)
--- NOTE | 2019-04-17 09:18 | PDOC.FM ---
- Subjective Subjective: Mr. Morris is doing well this morning, eager to be discharged. - Objective MAR Reviewed: Yes Vital Signs & Weight: Vital Signs (12 hours) Temp Pulse Resp BP Pulse Ox 04/17/19 08:08 92 16 90 L 04/17/19 08:07 92 16 90 L 04/17/19 07:40 97.6 F 89 18 136/58 L 95 04/17/19 04:24 97.5 F L 82 16 123/63 92 L 04/16/19 23:55 16 04/16/19 23:45 99.6 F 107 H 16 139/63 92 L Weight Admit Weight 57.878 kg Weight 64.41 kg Most Recent Monitor Data Heart Rate from ECG 75 NIBP 162/69 NIBP BP-Mean 131 Respiration from ECG 12 SpO2 93 I&O: 04/16/19 04/17/19 04/18/19 06:59 06:59 06:59 Intake Total 2100 5600 Output Total 600 1000 Balance 1500 4600 Result Diagrams: 04/17/19 05:45 04/15/19 13:50 Phys Exam - Physical Examination Constitutional: NAD HEENT: PERRLA, moist MMs, sclera anicteric Neck: supple, full ROM Respiratory: no wheezing, no rales, no rhonchi, clear to auscultation bilateral Cardiovascular: RRR, no significant murmur, no rub Gastrointestinal: soft, non-tender, no distention Musculoskeletal: no edema, pulses present 2+ edema to BLE Neurological: non-focal, normal sensation, moves all 4 limbs Psychiatric: normal affect, A&O x 3 Skin: no rash, normal turgor Dx/Plan (1) Acute respiratory failure with hypoxia Code(s): J96.01 - ACUTE RESPIRATORY FAILURE WITH HYPOXIA Status: Resolved (2) Community acquired pneumonia Code(s): J18.9 - PNEUMONIA, UNSPECIFIED ORGANISM Status: Acute (3) COPD (chronic obstructive pulmonary disease) Status: Chronic (4) Hypertension Code(s): I10 - ESSENTIAL (PRIMARY) HYPERTENSION Status: Chronic - Plan Plan: 73yo CM with h/o COPD, BCC, CVA with persistent L deficit, carotid stenosis, HTN presented in acute hypoxic hypercpneic respiratory failure, initially intubated and stay in ICU, initially improved, then found to have newonset Afib with RVR, now in sinus and doing well. Upper gastrointestinal bleed, due to duodenal ulcer. - Was in ICU and intubated, as well as started on Eliquis. - Patient has had dark black, constipated stools x 2 days. - EGD showed deep duodenal ulcer and 2 small esophageal ulcers. Patient will be discharged with PPI. Recommend f/u with GI outpatient. - Will hold eliquis until GI clears. Acute hypoxic hypercapneic respiratory failure, resolved - Patient was intubated (04/03-04/06), treated for CAP. Atrial Fibrillation w/ RVR, resolved - Transitioned to PO cardizem, monitoring on tele, [id number] of 5. - Cardiology consulted, appreciate recommendations. - EP Consulted, recommended anticoagulation if patient will be following up. Recommend no antiarrhythmic at this time. - Hold Eliquis until GI bleed has resolved. - Awaiting cardiology clearance for discharge, awaiting recommendations for discharge medications. Community acquired pneumonia, right upper lobe, resolved COPD exacerbation, resolved - Restarted home COPD medications with nebs Lower extremity edema - EF 60-65% on recent echo - cardiology felt this was due to amlodipine and discontinued it. Basal Cell Carcinoma - needs continued f/u with OP Derm IVF: SL Diet: HH Code status: Cardiac code only DVT ppx: Th Lovenox -> transition to Eliquis Dispo: Stable, will d/c home with home health. Denied SNF placement.
--- NOTE | 2019-04-17 11:48 | PDOC.CPN ---
- Subjective Date: 04/17/19 Time: 11:53 Interval history: The pt seen and examined. No overnight events. No cardiac complaints. - Objective Allergies/Adverse Reactions: Allergies Allergy/AdvReac Type Severity Reaction Status Date / Time No Known Allergies Allergy Verified 05/26/14 18:19 Visit Medications: Current Medications Albuterol/Ipratropium (Duoneb) 3 ml NEB [id number] [facility] Last Admin: 04/17/19 08:07 Dose: 3 ml Atorvastatin Calcium (Lipitor) 10 mg PO HS MICHAEL Last Admin: 04/16/19 20:30 Dose: 10 mg Diltiazem HCl (Cardizem Cd) 120 mg PO DAILY MICHAEL Diltiazem HCl (Cardizem Cd) 120 mg PO DAILY MICHAEL Hydralazine HCl (Apresoline) 5 mg SLOW IVP Q15MIN PRN PRN Reason: SBP Greater Than 180 Last Admin: 04/11/19 07:03 Dose: 5 mg Mometasone Furoate/Formoterol Fumar (Dulera 200 Mcg/5 Mcg Inhaler) 2 puff INH BID-RT [facility] Last Admin: 04/17/19 08:08 Dose: 2 puff Nicotine (Nicoderm Patch) 14 mg TD Q24HR [facility] Last Admin: 04/16/19 20:31 Dose: 14 mg Pantoprazole Sodium (Protonix) 40 mg PO BID [facility] Last Admin: 04/17/19 08:45 Dose: 40 mg Polyethylene Glycol (Miralax) 17 gm PO DAILY MICHAEL Last Admin: 04/17/19 08:45 Dose: 17 gm Senna (Senokot) 1 tab PO BIDPRN PRN PRN Reason: Constipation Last Admin: 04/17/19 08:45 Dose: 1 tab Sodium Chloride (Flush - Normal Saline) 10 ml IVF PRN PRN PRN Reason: Saline Flush Last Admin: 04/17/19 08:45 Dose: 10 ml Sterile Water (Bacteriostatic Water) 2 ml FS PRN PRN PRN Reason: RECONSTITUTION Vital Signs & Weight: Vital Signs Temp Pulse Resp BP Pulse Ox 04/17/19 11:13 97.7 F 93 16 137/68 93 L 04/17/19 08:08 92 16 90 L 04/17/19 08:07 92 16 90 L 04/17/19 07:40 97.6 F 89 18 136/58 L 95 04/17/19 04:24 97.5 F L 82 16 123/63 92 L 04/16/19 23:55 16 Admit Weight 127 lb 9.6 oz Weight 142 lb - Quality Measures CV meds: Beta Shanell: No (copd), MAURY/ARB: No, Statin: No, ASA: No, Plavix/ Effient/Brilinta: No, Anticoagulant: No (Eliquis for Afib. However, Eliquis is on hold for now due to GI bleed) - Medication Contraindications No Anticoagulant reason: Anticoagulant not tolerated - Physical Exam General: alert & oriented x3 HEENT: mucus membranes moist Neck: supple neck Cardiac: regular rate and rhythm, S1/S2 Lungs: decreased breath sounds Neuro: cranial nerve 2-12 intact Extremities: other: (3-4+ pitting BLE edema) - Labs Result Diagrams: 04/17/19 05:45 04/15/19 13:50 - Assessment/Plan Assessment/Plan: 1. Afib with RVR - regular HR by auscultation. Will resume Diltiazem 120mg qd ( he used to be on Diltiazem 60mg TID); Eliquis is on hold due to GI bleed. 2. HTN , now hypotensive and vol. depleted. 3. PVD s/p CEA 4. HLD: LDL on 04/15/2019 was 58 with not statin. 5. COPD with acute exacerbation, improved; stable with RA 6. Hx of CVA 7. Pre-renal azotemia. Encourage po intake or add IV fluids. 8. lower leg edema - BLE Edema still not improved although holding Norvasc and wearing compression stockings. It is painful for the pt to walk due to the edema. 9. GI bleeding - EGD on 04/16/2019 with large duodenal ulcer, hemostatic. Will need follow up on H. Pylori studies as outpt. Holding Eliquis until cleared by GI. OLIVIA reviewed * Echo on 04/09/2019 with EF 60-65%, mod ERA, mild MR and CO, and mild-mod TR Pt. seen and eval. by me. I agree with the A/P by the SALES REP. His lower legs and feet are still edematous but I noticed that he doesn't keep them elevated. RRR, decreased breath sounds but no rales or rhonchi. 2+ edema of feet and lower legs.
--- NOTE | 2019-04-17 13:53 | PRG ---
DATE OF SERVICE: 04/17/2019 SUBJECTIVE: Mr. Morris had no overt bleeding. There was discussion he may go home. OBJECTIVE: VITAL SIGNS: Temperature 97, pulse 93, blood pressure 137/68. ABDOMEN: Soft, nontender. LABORATORY DATA: Hemoglobin is 8.7, was 8.6 yesterday, it was 8.3 on the 10th. ASSESSMENT: Large duodenal ulcer with esophageal ulcer likely from reflux. RECOMMENDATIONS: 1. Continue PPI therapy for 4 months. 2. Will follow up biopsies of stomach as an outpatient to rule out malignancy. 3. If his biopsy is positive for H pylori, needs to be treated later as an outpatient ulcer heals or not. 4. The patient is not presently a candidate for anticoagulation with the large size of the duodenal ulcer. Job ID: [id number]
[2019-04-17 14:19] VITALS: BMI 22.8
[2019-04-17] MEDS: Atorvastatin Calcium 10 MG TAB PO SCH (20:07)
[2019-04-17] MEDS: Nicotine 14 MG PATCH TD SCH (20:07)
[2019-04-17] MEDS: Acetaminophen 325 MG TAB PO PRN (23:40)
[2019-04-18 05:39] LABS: Bilirubin Negative (Negative); Blood, Urine Negative (Negative); Clarity Clear (Clear); Glucose, Urine (Dipstick) Normal (Negative); Leukocyte Negative Leu/uL (Negative); Nitrite Negative (Negative); Protein, Urine (Dipstick) 10 mg/dL (Neg-Trace); RBC/HPF 0-3 HPF (0-3); Squamous Epithelial 0-3 HPF (0-3); Urobilinogen Normal mg/dL (Less than 2); WBC/HPF 0-3 HPF (0-3)
[2019-04-18 05:45] LABS: Bacteria/HPF 1+ HPF (None Seen)
[2019-04-18 05:46] LABS: Urine Culture Reflex Yes Yes
[2019-04-18 06:08] LABS: Hemoglobin 6.8 g/dL (14.0-18.0); Platelet Count 276 thou/uL (130-400)
--- NOTE | 2019-04-18 06:16 | PDOC.FM ---
- Subjective Subjective: Mr. Morris is doing well this morning. He was very short of breath and tachypneic last night, so he is getting DuoNebs. He also is feeling weak. - Objective MAR Reviewed: Yes Vital Signs & Weight: Vital Signs (12 hours) Temp Pulse Resp BP BP Pulse Ox 04/18/19 03:13 98 F 74 16 105/61 94 L 04/18/19 00:21 98 F 80 16 98/43 L 94 L 04/17/19 23:37 22 H 92 L 04/17/19 23:05 28 H 103/51 L 92 L 04/17/19 20:57 98.1 F 92 16 108/62 90 L 04/17/19 18:40 93 18 91 L Weight Admit Weight 57.878 kg Weight 64.41 kg Most Recent Monitor Data Heart Rate from ECG 75 NIBP 162/69 NIBP BP-Mean 131 Respiration from ECG 12 SpO2 93 I&O: 04/16/19 04/17/19 04/18/19 06:59 06:59 06:59 Intake Total 2100 5600 2453 Output Total 600 1000 2025 Balance 1500 4600 428 Result Diagrams: 04/18/19 05:35 04/15/19 13:50 Phys Exam - Physical Examination Constitutional: NAD HEENT: moist MMs, sclera anicteric Neck: supple, full ROM Respiratory: clear to auscultation bilateral Tight, coarse breath sounds Cardiovascular: RRR, no significant murmur, no rub Gastrointestinal: soft, non-tender, no distention Musculoskeletal: pulses present, edema present Neurological: non-focal, normal sensation Psychiatric: normal affect, A&O x 3 Skin: no rash, normal turgor Dx/Plan (1) Acute respiratory failure with hypoxia Code(s): J96.01 - ACUTE RESPIRATORY FAILURE WITH HYPOXIA Status: Resolved (2) Community acquired pneumonia Code(s): J18.9 - PNEUMONIA, UNSPECIFIED ORGANISM Status: Acute (3) COPD (chronic obstructive pulmonary disease) Status: Chronic (4) Hypertension Code(s): I10 - ESSENTIAL (PRIMARY) HYPERTENSION Status: Chronic - Plan Plan: 73yo CM with h/o COPD, BCC, CVA with persistent L deficit, carotid stenosis, HTN presented in acute hypoxic hypercpneic respiratory failure, initially intubated and stay in ICU, initially improved, then found to have newonset Afib with RVR, now in sinus and doing well. Upper gastrointestinal bleed, due to duodenal ulcer. - EGD showed deep duodenal ulcer and 2 small esophageal ulcers. Patient will be discharged with PPI for 4 months. GI consulted, appreciate recs. Will recommend f/u w/ GI on d/c. - Hb 8.7 -> 6.8 this morning. Type and cross, transfuse 2u pRBC. H&H 4 hours after transfusion. Constipation - will give miralax and docusate today to help soften bowel movements. Acute hypoxic hypercapneic respiratory failure, resolved Atrial Fibrillation w/ RVR, resolved - Transitioned to PO cardizem 120mg daily. - Cardiology consulted, appreciate recommendations. Community acquired pneumonia, right upper lobe, resolved COPD exacerbation, resolved - Restarted home COPD medications with nebs Lower extremity edema - EF 60-65% on recent echo - cardiology felt this was due to amlodipine and discontinued it. Basal Cell Carcinoma - needs continued f/u with OP Derm IVF: SL Diet: HH Code status: Cardiac code only DVT ppx: SCDs, patient cannot be anticoagulated 2/2 GI bleed. Dispo: Guarded, active GI bleed. Awaiting SNF appeal vs NH placement, family is working on it.
[2019-04-18] MEDS: Mometasone/Formoterol 120 PUFF INHALER INH SCH ×2 (07:30→18:45)
[2019-04-18] MEDS ORDERED: Docusate Calcium (SURFAK) 240 MG CAP PO PRN (09:11)
[2019-04-18] MEDS: Polyethylene Glycol 3350 17 GM Packet PO SCH (09:28)
[2019-04-18] MEDS: Senokot 8.6 MG TAB PO PRN (09:28)
[2019-04-18] MEDS: Acetaminophen 325 MG TAB PO PRN (09:28)
--- NOTE | 2019-04-18 12:15 | PDOC.CPN ---
- Subjective Date: 04/18/19 Time: 12:18 Interval history: The pt seen and examined. No overnight events. No cardiac complaints. - Objective Allergies/Adverse Reactions: Allergies Allergy/AdvReac Type Severity Reaction Status Date / Time No Known Allergies Allergy Verified 05/26/14 18:19 Visit Medications: Current Medications Acetaminophen (Tylenol) 650 mg PO Q6H PRN PRN Reason: Mild Pain (1-3) Last Admin: 04/18/19 09:28 Dose: 650 mg Albuterol/Ipratropium (Duoneb) 3 ml NEB [id number] REPL[facility] BY [facility] Last Admin: 04/18/19 07:31 Dose: 3 ml Atorvastatin Calcium (Lipitor) 10 mg PO HS REPLACED BY [facility] Last Admin: 04/17/19 20:07 Dose: 10 mg Diltiazem HCl (Cardizem Cd) 120 mg PO DAILY REPLAC[facility] BY [facility] Last Admin: 04/18/19 09:28 Dose: 120 mg Docusate Calcium (Surfak) 240 mg PO DAILYPRN PRN PRN Reason: Constipation Hydralazine HCl (Apresoline) 5 mg SLOW IVP Q15MIN PRN PRN Reason: SBP Greater Than 180 Last Admin: 04/11/19 07:03 Dose: 5 mg Mometasone Furoate/Formoterol Fumar (Dulera 200 Mcg/5 Mcg Inhaler) 2 puff INH BID-RT REPLACED BY [facility] Last Admin: 04/18/19 07:30 Dose: 2 puff Nicotine (Nicoderm Patch) 14 mg TD Q24HR REPLACED BY [facility] Last Admin: 04/17/19 20:07 Dose: 14 mg Pantoprazole Sodium (Protonix) 40 mg PO BID REPLACED BY [facility] Last Admin: 04/18/19 09:28 Dose: 40 mg Polyethylene Glycol (Miralax) 17 gm PO DAILY REPLACED BY [facility] Last Admin: 04/18/19 09:28 Dose: 17 gm Senna (Senokot) 1 tab PO BIDPRN PRN PRN Reason: Constipation Last Admin: 04/18/19 09:28 Dose: 1 tab Sodium Chloride (Flush - Normal Saline) 10 ml IVF PRN PRN PRN Reason: Saline Flush Last Admin: 04/17/19 08:45 Dose: 10 ml Sterile Water (Bacteriostatic Water) 2 ml FS PRN PRN PRN Reason: RECONSTITUTION Vital Signs & Weight: Vital Signs Temp Pulse Pulse Resp BP BP BP 04/18/19 11:03 97.4 F L 67 20 114/58 L 04/18/19 09:28 75 109/65 04/18/19 09:25 04/18/19 07:33 04/18/19 07:31 72 20 04/18/19 07:30 72 20 04/18/19 03:13 98 F 74 16 105/61 04/18/19 00:21 98 F 80 16 98/43 L Pulse Ox 04/18/19 11:03 04/18/19 09:28 04/18/19 09:25 92 L 04/18/19 07:33 92 L 04/18/19 07:31 92 L 04/18/19 07:30 92 L 04/18/19 03:13 94 L 04/18/19 00:21 94 L Admit Weight 127 lb 9.6 oz Weight 142 lb - Quality Measures CV meds: Beta Shanell: No (copd), MARUY/ARB: No, Statin: No, ASA: No, Plavix/ Effient/Brilinta: No, Anticoagulant: No (Eliquis for Afib. However, Eliquis is on hold for now due to GI bleed) - Medication Contraindications No Anticoagulant reason: Anticoagulant not tolerated - Physical Exam General: alert & oriented x3 HEENT: mucus membranes moist Neck: supple neck Cardiac: regular rate and rhythm, S1/S2 Lungs: decreased breath sounds, wheezes Abdomen: unremarkable Extremities: other: (3+ pitting BLE edema with TEDs) - Labs Result Diagrams: 04/18/19 05:35 04/15/19 13:50 - Assessment/Plan Assessment/Plan: 1. Afib with RVR - regular HR by auscultation. Will resume Diltiazem 120mg qd ( he used to be on Diltiazem 60mg TID); Eliquis is on hold due to GI bleed. 2. HTN - stable with Diltiazem 120mg qd. 3. PVD s/p CEA 4. HLD: LDL on 04/15/2019 was 58 with not statin. 5. COPD with acute exacerbation, improved; stable with RA 6. Hx of CVA 7. Pre-renal azotemia. Encourage po intake or add IV fluids. 8. lower leg edema - BLE Edema still not improved although holding Norvasc and wearing compression stockings. It is painful for the pt to walk due to the edema. 9. GI bleeding - EGD on 04/16/2019 with large duodenal ulcer, hemostatic. Will need follow up on H. Pylori studies as outpt. Holding Eliquis until cleared by GI. 10. Anemia - he is receiving 1 unit PRBC transfusion. MAR reviewed * Echo on 04/09/2019 with EF 60-65%, mod ERA, mild MR and MD, and mild-mod TR Pt. seen and eval. by me. I agree with the A/P by the SAP SECURITY CONSULTANT.Main issue appears his GI blood loss at this time and his continued edema.
--- NOTE | 2019-04-18 15:24 | PRG ---
DATE OF SERVICE: 04/18/2019 SUBJECTIVE: Mr. Morris had a drop in hemoglobin today. There has been no overt bleeding. I have talked to the nurse. He has had no bowel movements tonight or today. He has been eating. He had urinary retention, had a Hidalgo catheter placed. On review of the medications, he is no longer on any blood thinners. He is receiving blood transfusion now. PHYSICAL EXAMINATION: GENERAL: The patient is resting in bed. His nurse has put this catheter and he is complaining about a little bit about that. The urine is clear. ABDOMEN: Soft and nontender. He is somewhat tachypneic. LUNGS: Notable for some expiratory rhonchi and wheezing. EXTREMITIES: Trace edema in the legs. VITAL SIGNS: Temperature 97.4, pulse 75, and blood pressure 102/56. LABORATORY STUDIES: Hemoglobin is 6.8, it was 8.7 yesterday and stable, it was not repeated. He is receiving transfusion now. ASSESSMENT: Drop in hemoglobin of unclear etiology. This could be lab error or could be intraperitoneal bleeding, could be just equilibration. There are no overt signs of gastrointestinal bleeding at this time. He does have known white based ulcers in the esophagus and the duodenum. He had recent endoscopy this week with no stigmata indicate high risk for bleeding. He has been started on proton pump inhibitor therapy. RECOMMENDATIONS: 1. Monitor hemoglobin and hematocrit. 2. Continue PPI. If there is any signs of overt bleeding, please do not hesitate to call. 3. Dr. Martins will be on-call over the weekend for GI. If he has continued issues with anemia with no overt GI blood loss, consider intraperitoneal bleeding as a possibility. We will follow from a distance. Again, Dr. Armando Martins is on-call for weekend if needed. Job ID: [id number]
[2019-04-18] MEDS: Atorvastatin Calcium 10 MG TAB PO SCH (20:53)
[2019-04-18] MEDS: Nicotine 14 MG PATCH TD SCH (20:54)
[2019-04-19 06:35] LABS: Hemoglobin 9.6 g/dL (14.0-18.0); Platelet Count 238 thou/uL (130-400)
[2019-04-19 06:36] LABS: #Eosinphils 0.2 thou/uL (0.0-0.7); #Lymphocytes 1.2 thou/uL (1.20-3.40); #Monocytes 1.3 thou/uL (0.11-0.59); #Neutrophils 9.7 thou/uL (1.40-6.50); %Eosinophils 1.8 % (0.0-10.0); %Lymphocytes 9.6 % (21.0-51.0); %Monocytes 10.6 % (0.0-10.0); Hemoglobin 9.6 g/dL (14.0-18.0); Mean Corpuscular HGB CONC 34.2 g/dL (32.0-36.0); Mean Corpuscular Hemoglobin 30.2 pg (27.0-31.0); Mean Corpuscular Volume 88.4 fL (78.0-98.0); Mean Platelet Volume 6.5 fL (7.4-10.4); Platelet Count 240 thou/uL (130-400); RBC Distribution Width 14.9 % (11.5-14.5); Red Blood Cell (RBC) Count 3.18 mill/uL (4.70-6.10); White Blood Cell (WBC) Count 12.5 thou/uL (4.8-10.8)
--- NOTE | 2019-04-19 06:37 | PDOC.FM ---
- Subjective Subjective: Mr. Morris is doing well this morning, he states that his BM yesterday was normal. He complains of increasing lower extremity edema that is painful. He denies shortness of breath, but states that he feels he cannot take a full, deep breath. - Objective MAR Reviewed: Yes Vital Signs & Weight: Vital Signs (12 hours) Temp Pulse Resp BP BP Pulse Ox 04/19/19 04:07 97.9 F 79 16 108/58 L 95 04/19/19 00:11 68 16 95 04/18/19 23:09 68 16 107/55 L 95 04/18/19 20:18 98.1 F 70 16 125/63 94 L Weight Admit Weight 57.878 kg Weight 65.635 kg Most Recent Monitor Data Heart Rate from ECG 75 NIBP 162/69 NIBP BP-Mean 131 Respiration from ECG 12 SpO2 93 I&O: 04/17/19 04/18/19 04/19/19 06:59 06:59 06:59 Intake Total 5600 2453 1474 Output Total 1000 2025 1650 Balance 4600 428 -176 Result Diagrams: 04/19/19 06:02 04/19/19 06:02 Phys Exam - Physical Examination Constitutional: NAD (more alert than yesterday.) HEENT: PERRLA, moist MMs Neck: supple, full ROM Respiratory: no wheezing, clear to auscultation bilateral Fine crackles in the bases bilaterally. Cardiovascular: RRR, no significant murmur Gastrointestinal: soft TTP diffusely Musculoskeletal: edema present Neurological: non-focal, moves all 4 limbs Psychiatric: normal affect, A&O x 3 Skin: normal turgor, cap refill <2 seconds Dx/Plan (1) Acute respiratory failure with hypoxia Code(s): J96.01 - ACUTE RESPIRATORY FAILURE WITH HYPOXIA Status: Resolved (2) Community acquired pneumonia Code(s): J18.9 - PNEUMONIA, UNSPECIFIED ORGANISM Status: Acute (3) COPD (chronic obstructive pulmonary disease) Status: Chronic (4) Hypertension Code(s): I10 - ESSENTIAL (PRIMARY) HYPERTENSION Status: Chronic - Plan Plan: 73yo CM with h/o COPD, BCC, CVA with persistent L deficit, carotid stenosis, HTN presented in acute hypoxic hypercpneic respiratory failure, initially intubated and stay in ICU, initially improved, then found to have new onset Afib with RVR, now in sinus and doing well. Upper gastrointestinal bleed, due to duodenal ulcer. - EGD showed deep duodenal ulcer and 2 small esophageal ulcers. Patient will be discharged with PPI for 4 months. GI consulted, appreciate recs. Will recommend f/u w/ GI on d/c. - Gastric biopsy unremarkable, H. pylori negative - s/p 2u pRBC transfusion. Hb 6.8 > 9.6 this am. - will monitor closely for signs of bleeding. Constipation, resolved - continue docusate Acute hypoxic hypercapneic respiratory failure, resolved - patient is on 3L NC. CXR ordered. Atrial Fibrillation w/ RVR, resolved - Transitioned to PO cardizem 120mg daily. - Cardiology consulted, appreciate recommendations. Community acquired pneumonia, right upper lobe, resolved COPD exacerbation, resolved - Restarted home COPD medications with nebs Lower extremity edema - EF 60-65% on recent echo - cardiology felt this was due to amlodipine and discontinued it. Basal Cell Carcinoma - needs continued f/u with OP Derm IVF: SL Diet: HH Code status: Cardiac code only DVT ppx: SCDs, patient cannot be anticoagulated 2/2 GI bleed. Dispo: Guarded, active GI bleed. Awaiting SNF appeal vs NH placement, family is working on it.
[2019-04-19 06:59] LABS: Anion Gap 12 mmol/L (10-20); BUN (Urea Nitrogen) 17 mg/dL (8.4-25.7); Calc. Creatinine Clearance 107 mL/min (70-130); Calcium 8.1 mg/dL (7.8-10.44); Carbon Dioxide 25 mmol/L (23-31); Chloride 101 mmol/L (98-107); Estimated GFR-MDRD Greater than 90; Glucose 92 mg/dL (83-110); Potassium 3.7 mmol/L (3.5-5.1); Sodium 134 mmol/L (136-145)
[2019-04-19] MEDS ORDERED: Furosemide 40 MG/4 ML VIAL SLOW IVP SCH (07:30)
[2019-04-19] MEDS: Mometasone/Formoterol 120 PUFF INHALER INH SCH ×2 (07:32→18:43)
--- NOTE | 2019-04-19 08:03 | RAD ---
EXAM: Chest one view: HISTORY: Shortness of breath new oxygen requirement COMPARISON: 04/06/2019 FINDINGS: Extensive stable-appearing chronic lung changes with prominent volume loss in the right upper chest s cattered fibrotic and reticular nodular parenchymal changes throughout both lungs with little change from prior study. Heart size: Within normal limits. Lungs: Stable. No significant new process. IMPRESSION: Extensive but stable bilateral chronic lung changes with volume loss particularly in the right upper chest.
[2019-04-19] MEDS: Polyethylene Glycol 3350 17 GM Packet PO SCH (08:09)
[2019-04-19] MEDS ORDERED: Tamsulosin HCl 0.4 MG CAP PO SCH (12:15)
[2019-04-19] MEDS ORDERED: Simethicone Chewable 80 MG TAB PO SCH (12:15)
[2019-04-19] MEDS: Acetaminophen 325 MG TAB PO PRN (19:55)
[2019-04-19] MEDS: Atorvastatin Calcium 10 MG TAB PO SCH (19:55)
[2019-04-19] MEDS: Nicotine 14 MG PATCH TD SCH (19:55)
[2019-04-19] MEDS: hydrOXYzine 10 MG TAB PO SCH (23:08)
[2019-04-19] MEDS ORDERED: hydrOXYzine 10 MG TAB PO SCH (23:15)
[2019-04-20] MEDS: Acetaminophen 325 MG TAB PO PRN (01:57)
[2019-04-20] MEDS ORDERED: Simethicone Chewable 80 MG TAB PO PRN (06:01)
[2019-04-20] MEDS ORDERED: hydrOXYzine 10 MG TAB PO PRN (06:01)
--- NOTE | 2019-04-20 06:09 | PDOC.FM ---
- Subjective Subjective: Mr. Morris is doing well this morning, his edema is not much improved from yesterday. He states he feels fine. He has not had a bowel movement. - Objective MAR Reviewed: Yes Vital Signs & Weight: Vital Signs (12 hours) Temp Pulse Resp BP Pulse Ox 04/20/19 00:18 76 16 96 04/19/19 23:46 97.7 F 76 16 122/63 96 04/19/19 22:11 40 H 92 L 04/19/19 20:00 92 L 04/19/19 19:27 98.1 F 95 16 109/58 L 92 L 04/19/19 18:30 83 20 93 L Weight Admit Weight 57.878 kg Weight 63.866 kg Most Recent Monitor Data Heart Rate from ECG 75 NIBP 162/69 NIBP BP-Mean 131 Respiration from ECG 12 SpO2 93 I&O: 04/18/19 04/19/19 04/20/19 06:59 06:59 06:59 Intake Total 245 2554 2140 Output Total 2024 1999 3299 Balance 428 554 1160 Result Diagrams: 04/20/19 06:17 04/19/19 06:02 Phys Exam - Physical Examination Constitutional: NAD HEENT: PERRLA, moist MMs, sclera anicteric Neck: supple, full ROM Respiratory: no wheezing, no rhonchi, clear to auscultation bilateral Fine crackles Cardiovascular: RRR, no significant murmur, no rub Gastrointestinal: soft, no distention Mild TTP Musculoskeletal: edema present 2+ pitting edema Neurological: non-focal, normal sensation Psychiatric: normal affect, A&O x 3 Skin: no rash, normal turgor Dx/Plan (1) Acute respiratory failure with hypoxia Code(s): J96.01 - ACUTE RESPIRATORY FAILURE WITH HYPOXIA Status: Resolved (2) Community acquired pneumonia Code(s): J18.9 - PNEUMONIA, UNSPECIFIED ORGANISM Status: Acute (3) COPD (chronic obstructive pulmonary disease) Status: Chronic (4) Hypertension Code(s): I10 - ESSENTIAL (PRIMARY) HYPERTENSION Status: Chronic - Plan Plan: 73yo CM with h/o COPD, BCC, CVA with persistent L deficit, carotid stenosis, HTN presented in acute hypoxic hypercpneic respiratory failure, initially intubated and stay in ICU, initially improved, then found to have new onset Afib with RVR, now in sinus and doing well. Upper gastrointestinal bleed, due to duodenal ulcer. - EGD showed deep duodenal ulcer and 2 small esophageal ulcers. Patient will be discharged with PPI for 4 months. GI consulted, appreciate recs. Will recommend f/u w/ GI on d/c. - Gastric biopsy unremarkable, H. pylori negative - Hb stable - Hold Eliquis until f/u outpatient (several weeks, per GI recommendation) Constipation, resolved - continue docusate Acute hypoxic hypercapneic respiratory failure, resolved - patient is on 2L NC. CXR unremarkable for acute changes. Atrial Fibrillation w/ RVR, resolved - Transitioned to PO cardizem 120mg daily. - Cardiology consulted, appreciate recommendations. Community acquired pneumonia, right upper lobe, resolved COPD exacerbation, resolved - Restarted home COPD medications with nebs Lower extremity edema - EF 60-65% on recent echo - cardiology felt this was due to amlodipine and discontinued it. Basal Cell Carcinoma - needs continued f/u with OP Derm IVF: SL Diet: HH Code status: Cardiac code only DVT ppx: SCDs, patient cannot be anticoagulated 2/2 GI bleed. Dispo: Stable , approved for [facility]. Will prepare for d/c.
[2019-04-20] MEDS: hydrOXYzine 10 MG TAB PO SCH (06:12)
[2019-04-20 06:40] LABS: Hemoglobin 9.3 g/dL (14.0-18.0); Platelet Count 234 thou/uL (130-400)
[2019-04-20] MEDS: Mometasone/Formoterol 120 PUFF INHALER INH SCH ×2 (07:43→19:03)
[2019-04-20] MEDS: Tamsulosin HCl 0.4 MG CAP PO SCH (08:46)
[2019-04-20] MEDS: Polyethylene Glycol 3350 17 GM Packet PO SCH (08:47)
[2019-04-20 10:26] LABS: Actual Bicarbonate (HCO3a) 27.4 mEq/L (22-28); Base Excess (BEa) 3.8 mEq/L (-2.0 to +3.0); CO2 Tension 37.4 mmHg (35.0-45.0); Carboxyhemoglobin (COHb) 1.5 gm% (0.0-3.0); Hemoglobin (Hb) 10.4 g/dL (14.0-18.0); pH, Arterial 7.48 (7.35-7.45)
[2019-04-20 10:41] LABS: O2 Tension (PaO2) 56.9 mmHg (> 70.0)
[2019-04-20 10:42] LABS: Puncture Site RRAD
[2019-04-20] MEDS ORDERED: Iopamidol-370 76% 500 ML 1 ML ONE (11:22)
[2019-04-20] MEDS ORDERED: Furosemide 40 MG/4 ML VIAL SLOW IVP SCH (12:30)
--- NOTE | 2019-04-20 15:05 | CT ---
EXAM: CT angiogram of the chest including 3-D rendering: HISTORY: Shortness of breath COMPARISON: 04/19/2019 chest x-ray FINDINGS: There is adequate opacification of the pulmonary arteries. No evidence for aortic aneurysm or dissection. No convincing CT evidence for acute pulmonary embolism. There is very extensive linear and interstitial parenchymal changes with some hyperinflation chronic lung changes noted throughout both lungs. Prominent area of parenchymal density in the right upper lobe evidence for pneumonia, postobstructive pneumonitis, or underlying mass. There does appear to be some associated volume loss with this. This extends into the right perihilar region. 2.3 cm diameter right hilar enlarged lymph node. Subcarinal adenopathy up to 1.7 cm in short axis. Mi nimal left hilar adenopathy. Minimally enlarged AP window lymph node up to 1.2 cm in short axis. No evidence for pleural or pericardial effusion. Minimally enlarged new hepatis and peripancreatic lymph nodes. IMPRESSION: No convincing CT evidence for acute pulmonary embolism. Right upper lobe pulmonary parenchymal process probably with some volume loss with differential as ab ove, given hilar and mediastinal adenopathy post obstructive pneumonitis and/or neoplasm is a strong concern. Follow up PET scan is recommended. Other findings as above.
[2019-04-20] MEDS: Nicotine 14 MG PATCH TD SCH (21:55)
--- NOTE | 2019-04-21 06:09 | PDOC.FM ---
- Subjective Subjective: Patient seen lying in bed receiving a breathing treatment this morning. States he feels like the swelling in his lower legs has improved somewhat but his legs are still very painful when applying pressure. He currently has compression stockings on. He did have a BM yesterday. - Objective Vital Signs & Weight: Vital Signs (12 hours) Temp Pulse Resp BP BP Pulse Ox 04/21/19 03:05 98 F 85 16 139/61 98 04/21/19 00:30 98.4 F 84 16 115/66 92 L 04/21/19 00:01 80 16 94 L 04/20/19 21:30 97 04/20/19 20:45 98.3 F 87 16 114/66 97 04/20/19 18:48 92 18 92 L Weight Admit Weight 57.878 kg Weight 64.365 kg Most Recent Monitor Data Heart Rate from ECG 75 NIBP 162/69 NIBP BP-Mean 131 Respiration from ECG 12 SpO2 93 I&O: 04/19/19 04/20/19 04/21/19 06:59 06:59 06:59 Intake Total 25530 2053 Output Total 1999 0500 9261 Balance 554 -1210 -321 Result Diagrams: 04/21/19 06:28 04/19/19 06:02 Phys Exam - Physical Examination Constitutional: NAD HEENT: moist MMs, sclera anicteric Neck: no JVD, supple, full ROM Respiratory: no rhonchi scattered expiratory wheezing at bilateral bases Cardiovascular: RRR, no significant murmur Gastrointestinal: soft, non-tender, no distention, positive bowel sounds Musculoskeletal: pulses present 2+ pitting edema in bilateral LE Neurological: normal sensation, moves all 4 limbs Psychiatric: normal affect Skin: no rash, normal turgor Deviation from normal: BCC present on face Dx/Plan (1) Urinary retention Code(s): R33.9 - RETENTION OF URINE, UNSPECIFIED Status: Acute (2) Community acquired pneumonia Code(s): J18.9 - PNEUMONIA, UNSPECIFIED ORGANISM Status: Acute Qualifiers: Laterality: right Lung location: upper lobe of lung Qualified Code(s): J18.9 - Pneumonia, unspecified organism (3) Acute respiratory failure with hypoxia Code(s): J96.01 - ACUTE RESPIRATORY FAILURE WITH HYPOXIA Status: Resolved (4) Atrial fibrillation with RVR Code(s): I48.91 - UNSPECIFIED ATRIAL FIBRILLATION Status: Resolved (5) COPD (chronic obstructive pulmonary disease) Status: Chronic Qualifiers: COPD type: unspecified COPD Qualified Code(s): J44.9 - Chronic obstructive pulmonary disease, unspecified (6) Hypertension Code(s): I10 - ESSENTIAL (PRIMARY) HYPERTENSION Status: Chronic Qualifiers: Hypertension type: essential hypertension Qualified Code(s): I10 - Essential (primary) hypertension - Plan Plan: 73yo CM with h/o COPD, BCC, CVA with persistent L deficit, carotid stenosis, HTN presented in acute hypoxic hypercapneic respiratory failure, initially intubated and stay in ICU, initially improved, then found to have new onset Afib with RVR, now in sinus and doing well. #Upper gastrointestinal bleed, due to duodenal ulcer. - EGD showed deep duodenal ulcer and 2 small esophageal ulcers - Patient will be discharged with PPI for 4 months - GI consulted, appreciate recs. Will recommend f/u w/ GI on d/c. - Gastric biopsy unremarkable, H. pylori negative - Hgb stable past 3 days, morning H/H pending - Hold Eliquis until f/u outpatient (several weeks, per GI recommendation) #Constipation, resolved - continue docusate #Acute hypoxic hypercapneic respiratory failure, resolved - patient is on 2L NC. CXR unremarkable for acute changes. - CTA chest shows possible mass vs pneumonia vs postobstructive pneumonitis in RUL, recommend f/u PET scan as outpatient #Atrial Fibrillation w/ RVR, resolved - Transitioned to PO cardizem 120mg daily. - Cardiology consulted, appreciate recommendations. #Community acquired pneumonia, right upper lobe, resolved #COPD exacerbation, resolved - Restarted home COPD medications with nebs #Lower extremity edema - EF 60-65% on recent echo - cardiology felt this was due to amlodipine and discontinued it. #Basal Cell Carcinoma - needs continued f/u with OP Derm #Urinary Retention - flomax started 04/19 - trial off hernandez yesterday, bladder scan returned >999 so hernandez resumed at 2300 on 04/20 - will call Urology today to schedule patient for outpatient follow up IVF: SL Diet: HH Code status: Cardiac code only DVT ppx: SCDs, patient cannot be anticoagulated 2/2 GI bleed. Dispo: Stable admitted to inpatient on surgical unit. Has been approved for bed at [facility]. Will prepare for d/c in next 24-48 hrs. Addendum - Attending - Attending Attestation Date/Time: 04/21/19 [id number] I personally evaluated the patient and discussed the management with the team. I agree with the History, Examination, Assessment and Plan documented above with any addition or exceptions noted below. Discuss CT findings with Dr. Carlin, dispo pending. On exam he has multiple sores and skin grafts. His lungs are relatively clear with just very poor air movement.
[2019-04-21] MEDS: Mometasone/Formoterol 120 PUFF INHALER INH SCH (06:38)
[2019-04-21 06:39] LABS: Hemoglobin 10.1 g/dL (14.0-18.0)
[2019-04-21] MEDS: Tamsulosin HCl 0.4 MG CAP PO SCH (07:39)
[2019-04-21] MEDS: Polyethylene Glycol 3350 17 GM Packet PO SCH (07:40)
--- NOTE | 2019-04-21 08:52 | PDOC.CPN ---
- Subjective Date: 04/21/19 Time: 08:30 Interval history: The pt seen and examined. No overnight events. No cardiac complaints. - Objective Allergies/Adverse Reactions: Allergies Allergy/AdvReac Type Severity Reaction Status Date / Time No Known Allergies Allergy Verified 05/26/14 18:19 Visit Medications: Current Medications Acetaminophen (Tylenol) 650 mg PO Q6H PRN PRN Reason: Mild Pain (1-3) Last Admin: 04/20/19 01:57 Dose: 650 mg Albuterol/Ipratropium (Duoneb) 3 ml NEB [id number] [facility] Last Admin: 04/21/19 06:36 Dose: 3 ml Atorvastatin Calcium (Lipitor) 10 mg PO HS [facility] Last Admin: 04/19/19 19:55 Dose: 10 mg Diltiazem HCl (Cardizem Cd) 120 mg PO DAILY [facility] Last Admin: 04/21/19 07:39 Dose: 120 mg Docusate Calcium (Surfak) 240 mg PO DAILYPRN PRN PRN Reason: Constipation Hydralazine HCl (Apresoline) 5 mg SLOW IVP Q15MIN PRN PRN Reason: SBP Greater Than 180 Last Admin: 04/11/19 07:03 Dose: 5 mg Hydroxyzine HCl (Atarax) 10 mg PO Q8HR PRN PRN Reason: Anxiety Last Admin: 04/21/19 01:09 Dose: 10 mg Mometasone Furoate/Formoterol Fumar (Dulera 200 Mcg/5 Mcg Inhaler) 2 puff INH BID-RT MICHAEL Last Admin: 04/21/19 06:38 Dose: 2 puff Nicotine (Nicoderm Patch) 14 mg TD Q24HR MICHAEL Last Admin: 04/20/19 21:55 Dose: 14 mg Pantoprazole Sodium (Protonix) 40 mg PO BID MICHAEL Last Admin: 04/21/19 07:39 Dose: 40 mg Polyethylene Glycol (Miralax) 17 gm PO DAILY MICHAEL Last Admin: 04/21/19 07:40 Dose: 17 gm Senna (Senokot) 1 tab PO BIDPRN PRN PRN Reason: Constipation Last Admin: 04/18/19 09:28 Dose: 1 tab Simethicone (Mylicon Chewable) 80 mg PO TID PRN PRN Reason: Gas Pain Sodium Chloride (Flush - Normal Saline) 10 ml IVF PRN PRN PRN Reason: Saline Flush Last Admin: 04/17/19 08:45 Dose: 10 ml Sterile Water (Bacteriostatic Water) 2 ml FS PRN PRN PRN Reason: RECONSTITUTION Tamsulosin HCl (Flomax) 0.4 mg PO DAILY MICHAEL Last Admin: 04/21/19 07:39 Dose: 0.4 mg Vital Signs & Weight: Vital Signs Temp Pulse Resp BP BP Pulse Ox 04/21/19 07:54 98.5 F 83 20 111/63 96 04/21/19 07:39 80 04/21/19 06:36 80 20 90 L 04/21/19 03:05 98 F 85 16 139/61 98 04/21/19 00:30 98.4 F 84 16 115/66 92 L 04/21/19 00:01 80 16 94 L 04/20/19 21:30 97 Admit Weight 127 lb 9.6 oz Weight 141 lb 14.4 oz - Quality Measures CV meds: Beta Shanell: No (copd), MAURY/ARB: No, Statin: No, ASA: No, Plavix/ Effient/Brilinta: No, Anticoagulant: No (Eliquis for Afib. However, Eliquis is on hold for now due to GI bleed) - Medication Contraindications No Anticoagulant reason: Anticoagulant not tolerated - Physical Exam General: alert & oriented x3 HEENT: mucus membranes moist Neck: supple neck Cardiac: regular rate and rhythm, S1/S2 Lungs: clear to auscultation, scattered rhonchi Neuro: cranial nerve 2-12 intact Abdomen: unremarkable Extremities: other: (2-3+ non-pitting BLE edema) - Labs Result Diagrams: 04/21/19 06:28 04/19/19 06:02 - Assessment/Plan Assessment/Plan: 1. Afib with RVR - regular HR by auscultation. stable BP with Diltiazem 120mg qd (he used to be on Diltiazem 60mg TID); Eliquis is on hold due to GI bleed ( hold until cleared by GI) 2. HTN - stable with Diltiazem 120mg qd. 3. PVD s/p CEA 4. HLD: LDL on 04/15/2019 was 58 with not statin. 5. COPD with acute exacerbation - improved; stable with RA 6. Hx of CVA 7. Pre-renal azotemia - Encourage po intake 8. lower leg edema - BLE Edema still not improved although holding Norvasc and wearing compression stockings. It is painful for the pt to walk due to the edema. 9. GI bleeding - EGD on 04/16/2019 with large duodenal ulcer, hemostatic. Holding Eliquis until cleared by GI. 10. Anemia - stable after 1 unit PRBC transfusion. MAR reviewed * Echo on 04/09/2019 with EF 60-65%, mod ERA, mild MR and [place], and mild-mod TR
--- NOTE | 2019-04-21 10:03 | PDOC.BPN ---
- Brief Progress Note TRANSITION OF CARE NOTE: INFORMATION OF 04/20/2019 Please see the first transition of care note, dated 04/10/[address] Luciana Simpson for events 04/03-04/10. I assumed care of Mr. Morris on 04/10/2019 and transitioned care to Dr. Noemi Newman on 04/21/2019. Mr. Morris was originally admitted to the hospital for acute respiratory failure secondary to right upper lobe community acquired pneumonia vs COPD exacerbation. He was intubated and in the ICU for several days. At the time he was transitioned to the telemetry floor he was in atrial fibrillation with rapid ventricular response. He was on an Amiodarone drip and a Cardizem drip for rate and rhythm control Cardiology was consulted. He was weaned off the Cardizem drip and Amiodarone drips and started on PO Cardizem. Electrophysiology was consulted and they recommended no antiarrhythmic at this time. He was on prophylactic Lovenox from 04/04 to 04/09. While he was in atrial fibrillation he was started on therapeutic lovenox from 04/09- 04/13. On 04/13 he was started on PO Eliquis BID. On 04/13 his hemoglobin was 11.8 and trended down over the next several days. Eliquis was stopped on 04/15 because his hemoglobin dropped to 8.3 and he had a very black, melenic stool. On 04/16 he had an EGD which revealed a deep duodenal ulcer and 2 small esophageal ulcers. Biopsies were taken in the stomach and were unremarkable and showed no evidence of H. Pylori. On 04/18 his hemoglobin dropped further to 6.8 and he was transfused with 2 units of packed red blood cells. His hemoglobin responded appropriately and colleen to 9.6. The recommendation from the aerodynamics engineer was to continue po PPI BID for the duration of hospitalization and send home with BID PPI po on discharge to be continued for 4 months. Cardiology recommends continuing diltiazem po and follow up outpatient. After his EGD he experienced urinary retention. He likely has underlying BPH and was started on Flomax. He was straight catheterized x 1, then a hernandez was placed for several days and was discontinued on 04/20. He has no known history of heart failure and an echocardiogram done on 04/09 showed and EF of >60-65% without dysfunction. However, he has had notable lower extremity edema throughout his stay. He has received 3 doses of Lasix to assist with diuresis. Cardiology believed his edema to be, in part, due to Amlodipine and discontinued it. On Friday 04/20, he was noted to have increasing work of breathing. He had been requiring oxygen by nasal cannula and his oxygen saturation dropped when it was removed. We ordered a CT Angiogram for possible pulmonary embolism and the report showed no evidence for acute PE. There is right upper lobe pulmonary parenchymal process with volume loss, hilar and mediastinal adenopathy, and post -obstructive pneumonitis and/or neoplasm. The radiologist recommended a follow up PET scan. The patient is an elderly gentleman who states he lives alone in a trailer house. He has a nephew and niece that are helping with discharge planning and have recommended that the patient go to a longterm. He has been approved for [facility] as soon as he is stable for discharge. This has been discussed with the patient. Further discussion needs to be had for the potential diagnosis of neoplasm and the workup that needs to be done in order to reach a diagnosis. Consider re- consulting pulmonology.
--- NOTE | 2019-04-21 11:34 | RAD ---
EXAM: XR ERCP PROVIDED CLINICAL HISTORY: Biliary stent removal. COMPARISON: None FINDINGS/IMPRESSION: A single intraoperative fluoroscopic image of the right upper quadrant is submitted. Image demonstrat es an endo stent in place overlying the expected location of the common duct. Endoscope is noted in place. There is suggestion of surgical clips overlying the right upper quadrant. Correlation with int raoperative findings is recommended.
[2019-04-21 15:35] VITALS: BP 146/72; TEMP 97.9
--- NOTE | 2019-04-22 15:26 | DIS ---
DATE OF ADMISSION: 04/03/2019 DATE OF DISCHARGE: 04/21/2019 RESIDENT: Noemi Newman DO ADMITTING ATTENDING: Loco Abraham MD DISCHARGE ATTENDING: Phan Nelson MD CONSULTS: 1. Cardiology, Cate Rob MD. 2. EP, Reji Sanchez MD. 3. Gastroenterology, Josh Meraz MD. 4. Pulmonology, Coleman Carlin MD. 5. Physical Therapy. 6. Rehab screen. 7. Case Management. PROCEDURES PERFORMED: 1. Chest x-ray on April 03, 2019: Focal infiltrate or mass density in the medial right upper lung, suprahilar region. Interstitial and hazy infiltrate in both lung bases. Mild vascular engorgement. 2. Brain CT on April 03, 2019: No acute intracranial findings. Involutional changes and chronic changes. Tiny old lacunar infarctions of the right caudate nucleus and right thalamus. 3. Chest x-ray on April 03, 2019: Status post intubation with endotracheal tube and esophagogastric tube. Infiltrates in the right upper lobe and bilateral lower lobes, left greater than right, unchanged. 4. Chest x-ray on April 04, 2019: Elevation of the right hemidiaphragm persists. Prominent interstitial airspace opacities involving the right and left lung are stable. Cardiomegaly persists. ET tube and gastric catheter unchanged. No pneumothorax is evident. 5. Chest x-ray on April 05, 2019: No appreciable change from the comparison examination. The patient remains intubated with gastric catheter placement. 6. Chest x-ray on April 06, 2019: Endotracheal tube and gastric catheter are unchanged. Severe chronic obstructive pulmonary disease change is similar appearing. Parenchymal opacities at the right upper lobe and left lower lobe are stable. No definite pneumothorax is evident. 7. Echocardiogram on April 09, 2019: Ejection fraction is visually estimated at 60% to 65%. Moderately enlarged right ventricle cavity. Left atrium is of normal size. Moderately enlarged right atrium size. Mild thickening of posterior leaflet of mitral valve. Mild mitral regurgitation is present. Mild aortic valve calcification without any evidence of aortic stenosis. Mild to moderate tricuspid regurgitation. Mild pulmonic regurgitation is present. 8. Stress test nuclear medicine on April 11, 2019: Unremarkable myocardial perfusion scan. 9. EGD with biopsy on April 16, 2019: The patient was found to have two ulcerations in the distal esophagus. Hiatal hernia present. Large and deep ulceration over the duodenal bulb with no active bleeding seen. Biopsies obtained at the gastric antrum and gastric body. Biopsies ultimately resulted with unremarkable corpus type mucosa. No Helicobacter pylori organisms identified. 10. Chest x-ray on April 19, 2019: Extensive but stable bilateral chronic lung changes with volume loss, particularly in the right upper chest. 11. Chest/thorax CTA on April 20, 2019: No convincing CT evidence for acute pulmonary embolism. Right upper lobe pulmonary parenchymal process, probably with some volume loss with differential for pneumonia, postobstructive pneumonitis, or underlying mass. This extends into the right perihilar region. Given hilar and mediastinal adenopathy present, a postobstructive pneumonitis and/or neoplasm is a strong concern. Followup PET scan is recommended. PRIMARY DIAGNOSES: 1. Community-acquired pneumonia of right upper lobe of lung. 2. Acute gastrointestinal bleed. 3. Chronic obstructive pulmonary disease exacerbation. SECONDARY DIAGNOSES: 1. Constipation. 2. Acute hypoxic hypercapnic respiratory failure, resolved. 3. Atrial fibrillation with rapid ventricular rate, resolved. 4. Lower extremity edema. 5. Basal cell carcinoma of face. 6. Urinary retention. DISCHARGE MEDICATIONS: 1. Albuterol sulfate two puffs inhaled q.6 hours p.r.n. 2. Aspirin 81 mg p.o. daily. 3. Atorvastatin 10 mg p.o. at bedtime. 4. Symbicort 160-4.5 two puffs inhaled b.i.d. 5. Plavix 75 mg p.o. q.a.m. 6. Spiriva 18 mcg inhaled daily. 7. Prednisone 40 mg p.o. q.a.m. for 20 days. 8. Acetaminophen 650 mg p.o. q.6 hours p.r.n. 9. Diltiazem 120 mg p.o. daily. 10. Hydralazine 5 mg slow IVP q.15 minutes p.r.n. 11. Hydroxyzine 10 mg p.o. q.8 hours p.r.n. 12. Nicotine 14 mg topical patch q.24 hours. 13. Protonix 40 mg p.o. b.i.d. 14. MiraLAX 17 g p.o. daily. 15. Senokot one tab p.o. b.i.d. p.r.n. 16. Simethicone 80 mg p.o. t.i.d. p.r.n. 17. Flomax 0.4 mg p.o. daily. DISCONTINUED MEDICATIONS: 1. Amlodipine 10 mg p.o. daily. 2. Levaquin 750 mg p.o. daily for 8-day course. 3. Amiodarone drip. 4. Eliquis 5 mg p.o. b.i.d. HISTORY OF PRESENT ILLNESS/HOSPITAL COURSE: The patient is a 73-year-old male, who presented to the emergency department on April 03, 2019. At that time, he had been found down earlier in his home, had been immobile for an unknown amount of time. Neighbors reported he was last seen 2 to 3 days prior to this. During his ED intake, he was placed on BiPAP and was weak. He was only able to speak in short sentences. He was alert and oriented to person, but not place or time. The patient reported he has been feeling bad for "a while." The patient then does not regularly see a physician. His history was significant for several basal cell carcinoma removals. He did have a CVA in 2014, that resulted in persistent left-sided deficits. He also has a 50 pack-year smoking history. Chest x-ray performed in the ED was concerning for a focal infiltrate or mass density in the medial right upper lung. Additionally, there were some interstitial and hazy infiltrates in both lung bases. The patient was admitted to inpatient on the IMCU unit in guarded condition. The patient was in respiratory distress, likely secondary to COPD exacerbation and/or community-acquired pneumonia. Code status was discussed and the patient requested all resuscitative measures at that time. The decision was made to intubate him while he was still down in the emergency room in anticipation of respiratory decline further. The patient was initially given vancomycin and Zosyn in the ED, which was transitioned to cefepime and Levaquin upon arriving at the floor. The patient was also started on steroids and magnesium for suspected COPD exacerbation. The patient was also found on lab work to have a sodium of 121, which was thought at that time to be likely chronic. The patient also had multiple basal cell carcinomas on his face and forehead, which will need Dermatology outpatient followup. The following information is taken from the transition of care note dictated on April 10, 2019, by Dr. Luciana Simpson. The patient remained intubated for the following few days. He was ultimately extubated on April 06, 2019, and was transitioned to p.o. Levaquin and steroids for continued treatment of COPD exacerbation and pneumonia. He was then transferred to the regular medical floor on April 07, 2019. On April 08, 2019, the patient developed atrial fibrillation with RVR with rates in the 150s. He was given digoxin with no resolution due to his borderline low blood pressures. He was then initiated on amiodarone on the morning of April 09, 2019. Despite amiodarone, the patient again went up into a rate of the 150s, therefore, a diltiazem drip was added. He was then converted back to sinus rhythm, so the diltiazem was stopped. Cardiology was consulted at this time. Case Management consult was also placed for rehab placement. However, the patient's insurance initially would not cover rehab. Therefore, assisted home was likely the best option for him. He then decided to change his code status to DNAR and find an [id number] DNR. The following information was taken from a transition of care note dictated on April 20, 2019, by Dr. Shira Belle. These events will cover from April 10, 2019 until April 21, 2019. On April 11, 2019, Electrophysiology was consulted and they had no recommended antiarrhythmic at that time. The patient was on prophylactic Lovenox from April 04 to April 09. While he was in atrial fibrillation, he was started on therapeutic Lovenox from April 09 through April 13. On April 13, he was started on p.o. Eliquis 5 mg p.o. b.i.d. On April 13, his hemoglobin was 11.8 and trended down over the next several days. Eliquis was stopped on April 15 because the patient's hemoglobin dropped to 8.3, and he had very black melanotic stool. On April 16, he had an EGD performed which revealed a deep duodenal ulcer and two small esophageal ulcers. Biopsies were taken in the stomach and were unremarkable and showed no evidence of H pylori. On April 18, the patient's hemoglobin dropped further to 6.8, and he was transfused with 2 units of packed red blood cells. His hemoglobin responded appropriately and colleen to 9.6. The recommendation from the scorer helper was to continue p.o. PPI b.i.d. for the duration of hospitalization and be sent home with b.i.d. PPI p.o. on discharge to be continued for an additional four months. Cardiology recommended continuing diltiazem p.o. and follow up outpatient. After the patient's EGD, he experienced urinary retention. He likely has underlying BPH and was started on Flomax. He was catheterized x1, and then a Hidalgo was placed for several days and was discontinued on April 20. The patient has no known history of heart failure and an echocardiogram done on April 09 showed an EF of 60% to 65% without dysfunction. However, the patient had notable lower extremity edema throughout his stay. He received three doses of Lasix to assist with diuresis. Cardiology believed his edema to be in part due to amlodipine and discontinued that medication. On April 20, he was noted to have increasing work of breathing. He had been requiring oxygen via nasal cannula and his oxygen saturation dropped when it was removed. The patient had a CT angiogram completed to rule out possible pulmonary embolism and the report showed no evidence for acute PE. There was a right upper lobe pulmonary parenchymal process with volume loss, hilar and mediastinal adenopathy, and postobstructive pneumonitis and/or neoplasm with strong concern. The radiologist recommended a followup PET scan, which needs to be completed outpatient. The patient was then approved to go to [facility] as soon as he was stable for discharge. On April 21, 2019, the patient had a bladder scan returned, which was greater than 999 mL. His Hidalgo was then replaced at 0100 on April 21. Urology was called for the patient to be set up with an outpatient appointment. Dr. Carlin, Pulmonology, was also called again due to the new CTA findings. Dr. Carlin recommended a followup CT in three months. After discussion with him, it was determined that the patient's severe COPD puts him at high risk for any further workup at this time. Given the patient will have to undergo sedation for bronchoscopy, he is at further high risk for complication. The patient has also voiced previously that he wishes to be DNAR. The patient's level of functioning has declined and for the foreseeable future, will be staying in a [facility]. All this taken into consideration, Dr. Carlin did not feel to intervene with a possible right upper lobe neoplasm versus postobstructive pneumonitis at that time until the patient has some time to recover and any resolving pneumonia has a chance to clear. In the afternoon of April 21, 2019, the patient had been cleared by GI, Cardiology, and Pulmonology to be transitioned for further care at [facility]. The patient was discharged that afternoon. DISPOSITION: Stable. DISCHARGE INSTRUCTIONS: 1. Location: Longterm [facility], [facility]. 2. Diet: Regular. 3. Activity: Cardiopulmonary limits. 4. Continue physical therapy, occupational therapy, speech therapy at the [facility], continue oxygen supplemental as needed. Follow up with Dr. Meraz, GI, in 2 to 3 weeks. Follow up with Dr. Howell, Urology, in 1 to 2 weeks. Follow up with Dr. Carlin in 3 months, sooner as needed. Follow up with primary care provider in 2 to 3 days. Job ID: [id number]
--- NOTE | 2019-04-23 02:35 | PQF ---
SRIKANTH MENDOSA JASON MD *r* [id number] CLINICAL DOCUMENTATION CLARIFICATION FORM: POST DISCHARGE Addendum to original discharge summary date: ____ Late entry note date: __ DATE: 04/23/19 ATTN: Loco Gomez Please exercise your independent, professional judgment in responding to the clarification form. Clinical indicators are provided on the bottom of this form for your review Please check appropriate box(s) to clarify if the following diagnosis has been ruled in or ruled out: SEPSIS [ ] Ruled in diagnosis [ ] Continue to treat [ ] Resolved [ ] Ruled out diagnosis [ ] Cannot rule out diagnosis [ ] Other diagnosis [ ] Unable to determine For continuity of documentation, please document condition throughout progress notes and discharge summary. Thank You. CLINICAL INDICATORS - SIGNS / SYMPTOMS / LABS ED Notes 04/03 "transferred here for COPD and sepsis as well as some progressive AMS" 04/03 "Labs at that time showed leukocytosis while chest xray showed right lobe infiltrates with bilateral lower lobe haziness" 04/03 "Acute hypoxic respiratory failure due to encephalopathy" Consult 04/16 "apparently had some sepsis as well" Vital signs: Pulse 04/0827=509 Respi 04/19=40 BP 04/18=98/43 Labs WBC: 04/04=12.3 04/05=17.2 04/06=9.1 04/14=20.8 04/15=16.7 04/19=12.5 RISK FACTORS ED Notes 04/03-73 years old male ED Notes 04/03-COPD HP 04/03-History of skin cancer HP 04/03-Former smoker HP 04/03-PNA TREATMENTS Collected 04/03-Chest Xray HP 04/03-Intubated with ventilation PN 04/21-Admit to ICU Consult 04/16-Blood culture MAR 04/03-Levaquin 750mg IV JUL 15-Cefepime 2gm IV JUL 15-IVF (This form is maintained as a part of the permanent medical record) 2014 [employer] All Rights Reserved [email or web address] [not provided] [email or web address]
== END 2019-04-21 17:39 | DRG 208 ==
LOC: ERS 19:54 → CCU 23:46 → 2NO 04-10 01:02 → SURG A 04-13 23:17
PROVIDERS: ADMIT Student in an Organized Health Care Education/Training Program; ATTEND Student in an Organized Health Care Education/Training Program
PROC: 5A1945Z Respiratory Ventilation, 24-96 Consecutive Hours (ICD-10-PCS; 2019-04-03)
PROC: 0BH17EZ Insertion of Endotracheal Airway into Trachea, Via Natural or Artificial Opening (ICD-10-PCS; 2019-04-03)
PROC: 3E02340 Introduction of Influenza Vaccine into Muscle, Percutaneous Approach (ICD-10-PCS; 2019-04-04)
PROC: 3E0234Z Introduction of Serum, Toxoid and Vaccine into Muscle, Percutaneous Approach (ICD-10-PCS; 2019-04-04)
PROC: 0DB68ZX Excision of Stomach, Via Natural or Artificial Opening Endoscopic, Diagnostic (ICD-10-PCS; principal; 2019-04-16)
PROC: 0DB78ZX Excision of Stomach, Pylorus, Via Natural or Artificial Opening Endoscopic, Diagnostic (ICD-10-PCS; 2019-04-16)
PROC: 30233N1 Transfusion of Nonautologous Red Blood Cells into Peripheral Vein, Percutaneous Approach (ICD-10-PCS; 2019-04-18)
PROC: 0T9B70Z Drainage of Bladder with Drainage Device, Via Natural or Artificial Opening (ICD-10-PCS; 2019-04-19)
DX: J18.9 Pneumonia, unspecified organism (principal); J96.01 Acute respiratory failure with hypoxia; J96.02 Acute respiratory failure with hypercapnia; G93.41 Metabolic encephalopathy; K26.4 Chronic or unspecified duodenal ulcer with hemorrhage; J44.1 Chronic obstructive pulmonary disease with (acute) exacerbation; J44.0 Chronic obstructive pulmonary disease with (acute) lower respiratory infection; R64 Cachexia; E87.1 Hypo-osmolality and hyponatremia; G93.1 Anoxic brain damage, not elsewhere classified; D62 Acute posthemorrhagic anemia; K22.10 Ulcer of esophagus without bleeding; I69.354 Hemiplegia and hemiparesis following cerebral infarction affecting left non-dominant side; Z66 Do not resuscitate; I65.29 Occlusion and stenosis of unspecified carotid artery; I10 Essential (primary) hypertension; E78.5 Hyperlipidemia, unspecified; E86.1 Hypovolemia; E78.00 Pure hypercholesterolemia, unspecified; I73.9 Peripheral vascular disease, unspecified; I48.0 Paroxysmal atrial fibrillation; K44.9 Diaphragmatic hernia without obstruction or gangrene; T45.515A Adverse effect of anticoagulants, initial encounter; T46.1X5A Adverse effect of calcium-channel blockers, initial encounter; I08.1 Rheumatic disorders of both mitral and tricuspid valves; K59.00 Constipation, unspecified; R33.9 Retention of urine, unspecified; R60.0 Localized edema; R79.89 Other specified abnormal findings of blood chemistry; Z85.828 Personal history of other malignant neoplasm of skin; Z87.891 Personal history of nicotine dependence; Z79.51 Long term (current) use of inhaled steroids; Z79.52 Long term (current) use of systemic steroids; Z79.82 Long term (current) use of aspirin; Z79.899 Other long term (current) drug therapy; Z90.49 Acquired absence of other specified parts of digestive tract; Z68.22 Body mass index [BMI] 22.0-22.9, adult; Z99.81 Dependence on supplemental oxygen; Z99.3 Dependence on wheelchair
CPT/HCPCS: 31500; 36415; 36416; 36430; 51701; 71045; 71275; 74330; 78452; 80048; 80053; 80061; 81001; 82274; 82805; 83735; 84100; 84145; 85014; 85018; 85025; 85027; 85049; 86850; 86900; 86901; 87086; 88305; 88312; 93005; 93010; 93017; 93306; 94003; 94640; 94760; 96361; 96365; 96366; 96375; 99292; A9500; J0282; J0360; J0692; J1160; J1650; J1940; J1956; J2270; J2704; J2785; J2920; J2930; J3010; J3475; J3490; J7070; J7512; J7620; P9016; Q9967; S0028